=== PATIENT | female | born 1945 | race Caucasian/White ===

== ENCOUNTER 2024-07-13 07:50 | Inpatient (IN) | payer OTHER, BC ==
--- OUTSIDE RECORDS SUMMARY | 2024-07-13 09:19 | XMS REPORT | Continuity of Care Document ---
Author Name Unknown Address [address] [facility] [address] [place] [address] [facility] Address [address] [facility] [place] [address] Care Team Providers Care [employer] Name Role Phone Sheng Olivares Primary Care Physician [phone] Sheng Olivares Attending Clinician Unavailable [id number] Attending Clinician Unavailable LEELEE ZAMORA Attending Clinician Unavailable Leelee Zamora MD Attending Clinician [phone] Leelee Zamora MD Attending Clinician [phone] BARBY BOBO K.HSukhdev Attending Clinician Unavailstevie Bobo MD, Sendmyles K.H. Attending Clinician [phone] KAYLEEN TONEY Attending Clinician UnaKAYLEEN Mirza Attending Clinician UnaGallo Conteh MD Attending Clinician [phone] Doctor Unassigned, [place] Attending Clinician U MILLER Perez Attending Clinician Unavailable Sven JIMÉNEZ, Miller Attending Clinician [phone] Visit, Adc Nurse Attending Clinician Unavailable JEFF LOW Attending Clinician Unavailable Jeff Low PA-C Attending Clinician [phone] Jack Gunn Rahil Attending Clinician Unavail able JOAO LENTZ Attending Clinician UnavailJoao Partida MD Attending Clinician [phone] Farhana Salazar DO Attending Clinician [phone] Jennifer Johnson RN Attending Clinician Unavailable NAVA GRAY Attending Clinician Unavailable Michael Kay MD Attending Clinician [phone] Nava Gray MD Attending Clinician [phone] Admitting Clinician Unavailable KAYLEEN TONEY Admitting Clinician Unav ailable MILLER MACHUCA Admitting Clinician Unavailable Jack Gunn Rahil Admitting Clinician Unavail able JOAO LENTZ Admitting Clinician UnavailNAVA Black Admitting Clinician Unavailable Marcella JIMÉNEZ, Nava Admitting Clinician [phone] Payers Payer Name Policy Type Policy Number Effective Date Expiration Date Source MEDICARE PART A \\T\\ B [id number] 2008 00:00:00 [employer] TRADITIONAL [id number] 2008 00:00:00 BCBS PPO 53 [id number] [facility] [id number] BCTI BCTI [id number] 2 Problems Condition Name Condition Details Condition Category Status Onset Date Resolution Date Last Treatment Date Treating Clinician Comments Source History of arterial ischemic stroke History of arterial ischemic stroke Disease Active 12-02 00:00: 00 [facility] Primary hypertensi on Primary hypertensi on Disease Active 12-02 00:00: 00 [facility] PAF (paroxysma l atrial fibrillati on) PAF (paroxysma l atrial fibrillati on) Disease Active 12-02 00:00: 00 [facility] Anticoagul ant long-term use Anticoagul ant long-term use Disease Active 12-02 00:00: 00 [facility] Weakness of both lower extremitie s Weakness of both lower extremitie s Disease Active 11-15 00:00: 00 [facility] Weakness of both lower extremitie s Weakness of both lower extremitie s Disease Active 11-15 00:00: 00 [facility] Allergies, Adverse Reactions, Alerts Allergy Name Allergy Type Status Severity Reaction(s) Onset Date Inactive Date Treating Clinician Comments Source NO KNOWN ALLERGIE S Drug Class Active [facility] Social History Social Habit Start Date Stop Date Quantity Comments Source [facility] of Tobacco Use [facility] Sex Assigned At [facility] History of Social function 2024-05-24 00:00:00 2024-05-24 00:00:00 [facility] Exposure to SARS-CoV-2 (event) 2023-01-04 00:00:00 2023-01-14 11:19:00 Not sure [facility] Smoking Status Start Date Stop Date Source Never Smoker [facility] Tobacco smoking consumption unknown [facility] Medications Ordered Medication Name Filled Medication Name Start Date Stop Date Current Medication? Ordering Clinician Indication Dosage Frequency Signature (SIG) Comments Components Source warfarin 2 mg tablet 04-02 00:00: 00 Yes [id number] Take 1 tablet by mouth in the evening on Tuesday and [facility] warfarin 4 mg tablet 04-02 00:00: 00 Yes [id number] Take 1 tablet by mouth in the evening on Tuesday, Tuesday, Tuesday, Tuesday, and Tuesday [facility] warfarin 2 mg tablet 15 00:00: 00 04-02 00:00 :00 No [id number] Take 1 tablet by mouth in the evening on Tuesday and [facility] warfarin 4 mg tablet 02-22 00:00: 00 04-02 00:00 :00 No [id number] Take 1 tablet by mouth in the evening on Tuesday, Tuesday, Tuesday, Tuesday, and Tuesday [facility] warfarin 2 mg tablet 2022-09 0 00:00: 00 02-22 00:00 :00 No 2mg Take 1 tablet by mouth every Tuesday in the evening. [facility] warfarin 2 mg tablet 2022-1 0-02 00:00: 00 06-29 00:00 :00 No 2mg Take 1 tablet by mouth every Tuesday in the evening. [facility] warfarin 2 mg tablet 2022-0 8-26 00:00: 00 06-13 00:00 :00 No 2mg Take 1 tablet by mouth every Tuesday in the evening. [facility] warfarin 4 mg tablet 2022-0 5-11 00:00: 00 02-22 00:00 :00 No [id number] Take 4 mg x 6 days a week [facility] warfarin 5 mg tablet 2022-0 5-11 00:00: 00 05-02 00:00 :00 No [id number] Take 5 mg 1 day per week [facility] warfarin 5 mg tablet 2022-0 4-24 00:00: 00 01-20 00:00 :00 No [id number] 5mg Take 1 tablet by mouth every evening. Take 5 mg on 2 days of the week and 4 mg on the other 5 days [facility] warfarin 5 mg tablet 2022-0 4-14 00:00: 00 Yes [id number] 5mg Take 1 tablet by mouth every evening. 5 mg 3 days per week. 4 mg on 4 days per week [facility] warfarin 4 mg tablet 2022-0 4-14 00:00: 00 01-20 00:00 :00 No [id number] 4mg Take 1 tablet by mouth every evening. [facility] warfarin 5 mg tablet 3-0 3-14 00:00: 00 Yes [id number] 5mg Take 1 tablet by mouth every evening. 5 mg 3 days per week. 4 mg on 4 days per week [facility] warfarin 4 mg tablet 3-0 3-14 00:00: 00 Yes [id number] 4mg Take 1 tablet by mouth every evening. 4 mg on 4 days and 5 mg on 3 days per week [facility] warfarin 4 mg tablet 3-0 3-02 00:00: 00 11-23 00:00 :00 No [id number] 4mg Take 1 tablet by mouth every evening. [facility] warfarin 3 mg tablet 2- 00:00: 00 11-11 00:00 :00 No [id number] 3mg Take 1 tablet by mouth every evening. [facility] warfarin 1 mg tablet - 00:00: 00 11-02 00:00 :00 No [id number] 1mg Take 1 tablet by mouth every evening. [facility] warfarin 5 mg tablet 2021-09 00:00: 00 09-30 00:00 :00 No [id number] 5mg Take 1 tablet by mouth every evening. [facility] apixaban (ELIQUIS) 5 mg tablet 2021-09 00:00: 00 09-02 00:00 :00 No [id number] 5mg Take 1 tablet by mouth in the morning and 1 tablet in the evening. Indication s: prevention of thromboemb olism in paroxysmal atrial fibrillati on [facility] apixaban 5 mg tablet 2021-09 00:00: 00 08-19 00:00 :00 No [id number] 5mg Take 1 tablet by mouth in the morning and 1 tablet in the evening. Indication s: atrial fibrillati on [facility] apixaban 5 mg tablet 2021-09 00:00: 00 08-11 00:00 :00 No [id number] 5mg Take 1 tablet by mouth in the morning and 1 tablet in the evening. Indication s: atrial fibrillati on [facility] iopamidol (ISOVUE 370-500 mL) injection 100 mL 10-04 20:45: 00 10-04 19:20 :00 No [id number] 100mL 100 mL, Intravenou s, ONCE, 1 dose, On 10/04/21 at 1445, Routine [facility] proMETHazin e (PHENERGAN) 12.5 mg in NaCl 0.9% (NS) 50 mL IV piggyback 10-04 19:00: 00 10-04 19:00 :00 No 12.5mg 12.5 mg, IV Piggyback, ONCE, 1 dose, On 10/04/21 at 1300, [facility] meclizine (TRAVEL-EAS E (MECLIZINE) ) tablet 25 mg 10-04 19:00: 00 10-04 18:13 :00 No 25mg 25 mg, Oral, ONCE, 1 dose, On 10/04/21 at 1300, [facility] NaCl 0.9% (NS) bolus infusion 1,000 mL 10-04 19:00: 00 10-04 20:12 :00 No 1000mL at 999 mL/hr, 1,000 mL, IV Infusion, ONCE, 1 dose, On 10/04/21 at 1300, [facility] benzonatate 100 mg capsule 10-04 00:00: 00 Yes [id number] 100mg Take 1 capsule by mouth 3 (three) times daily as needed for Cough. [facility] meclizine 25 mg tablet 10-04 00:00: 00 Yes [id number] 25mg Take 1 tablet by mouth every 8 (eight) hours as needed for Dizziness. [facility] proMETHazin e 25 mg tablet 10-04 00:00: 00 Yes [id number] 25mg Take 1 tablet by mouth every 6 (six) hours as needed (dizziness and/or nausea). [facility] albuterol 90 mcg/actuati on inhaler 10-04 00:00: 00 Yes [id number] 2{puff} Inhale 2 Puffs every 4 (four) hours as needed for Wheezing or Shortness of Breath. [facility] tetanus-dip htheria toxoids (TENIVAC) 5-2 Lf unit/0.5 mL injection 0.5 mL 12-20 15:30: 00 12-20 16:05 :00 No .5mL 0.5 mL, Intramuscu lar, ONCE, 1 dose, 12/20/20 at 1030, Routine [facility] pramipexole di-HCl (MIRAPEX ORAL) 11-19 01:09: 27 Yes 1.5mg Take 1.5 mg by mouth. reports he gives 1/2 in the am and 1/2 pm. [facility] PARoxetine 10 mg tablet 11-19 01:09: 27 Yes 10mg Take 10 mg by mouth daily. [facility] atorvastati n 80 mg tablet 11-19 01:09: 27 Yes 80mg Take 80 mg by mouth at bedtime. [facility] pramipexole di-HCl (MIRAPEX ORAL) 11-18 19:09: 27 Yes 1.5mg Take 1.5 mg by mouth. reports he gives 1/2 in the am and 1/2 pm. [facility] PARoxetine 10 mg tablet 11-18 19:09: 27 Yes 10mg Take 1 tablet by mouth in the morning. [facility] atorvastati n 80 mg tablet 11-18 19:09: 27 Yes 80mg Take 1 tablet by mouth at bedtime. [facility] KCL (KLOR-CON M20) tablet 40 mEq 11-18 14:42: 00 11-18 14:59 :00 No 40meq 40 mEq, Oral, ONCE, 1 dose, 11/18/20 at 0845, Routine [facility] magnesium sulfate in water 2 gram/50 mL (4 %) infusion 2 g 11-18 14:42: 00 11-18 16:50 :00 No 2g 2 g, IV Piggyback, ONCE, 1 dose, 11/18/20 at 0845, RICKY [facility] clopidogreL (PLAVIX) 75 mg tablet 11-18 13:46: 27 11-18 00:00 :00 No 75mg Take 75 mg by mouth daily. [facility] doxycycline hyclate (Vibramycin ) capsule 100 mg 11-18 12:00: 00 2021- 03-13 11:59 :00 No 100mg 100 mg, Oral, Q12HA2, 8 doses, First dose on Tue11/18/20 at 0600, Last dose on Tue11/21/20 at 1800, RICKY
Re ason for Anti-Infec tive: Surgical Prophylaxi s
Surgi giuliana Prophylaxi s: Other (see Comments)< br>Duratio n of therapy: within 24 hours of surgery [facility] atorvastati n (LIPITOR) tablet 80 mg 11-18 03:00: 00 Yes 80mg 80 mg, Oral, QHS, First dose (after last reorder) on Tue11/17/20 at 2100, Until Discontinu ed, Routine [facility] lidocaine 1% (PF) (XYLOCAINE) injection 11-18 00:00: 03 11-18 00:00 :03 No Infiltrati on, TITRATE - FOR PROCEDURE USE, 1 dose, Starting Tue11/17/20 at 1800, Until Tue11/17/20 at 1800, Routine [facility] aspirin 81 mg chewable tablet 11-18 00:00: 00 12-02 00:00 :00 No [id number] 81mg Take 1 tablet by mouth daily. [facility] clopidogreL (PLAVIX) 75 mg tablet 11-18 00:00: 00 12-10 04:59 :00 No [id number] 75mg Take 1 tablet by mouth daily for 21 days. [facility] doxycycline hyclate 100 mg capsule 11-18 00:00: 00 11-23 05:59 :00 No [id number] 100mg Take 1 capsule by mouth every 12 (twelve) hours for 4 days. [facility] vancomycin 1000 mg in NS 200 mL RTU IV Piggyback 11-17 23:59: 45 11-17 23:59 :45 No IV Piggyback, TITRATE - FOR PROCEDURE USE, 1 dose, Starting Tue11/17/20 at 1759, Until Tue11/17/20 at 1759 [facility] Saline Bubble Study 11-17 23:21: 41 Yes [id number] 6mL 6 mL, Injection, SEE-INSTRU CTIONS, Starting 11/17/20 at 1721, Until Discontinu ed, Routine [facility] clopidogreL (PLAVIX) tablet 75 mg 11-17 15:00: 00 Yes 75mg 75 mg, Oral, DAILY, First dose on 11/17/20 at 0900, Until Discontinu ed, Routine [facility] KCL (KLOR-CON M20) tablet 40 mEq 11-17 13:06: 00 11-17 14:58 :00 No 40meq 40 mEq, Oral, ONCE, 1 dose, 11/17/20 at 0715, Routine [facility] atorvastati n (LIPITOR) tablet 20 mg 11-17 03:00: 00 11-17 19:03 :08 No 20mg 20 mg, Oral, QHS, First dose (after last modificati on) on 11/16/20 at 2100, Until Discontinu ed, Routine [facility] NaCl 0.9% (NS) IV infusion 1,000 mL 11-16 15:00: 00 Yes 1000mL at 100 mL/hr, IV Infusion, CONTINUOUS , Starting Voss 11/16/20 at 0900, Until Discontinu ed, Routine [facility] aspirin chewable tablet 81 mg 11-16 15:00: 00 Yes 81mg 81 mg, Oral, DAILY, First dose on Tue11/16/20 at 0900, Until Discontinu ed, Routine [facility] PARoxetine (PAXIL) tablet 10 mg 11-16 15:00: 00 Yes 10mg 10 mg, Oral, DAILY, First dose on 11/16/20 at 0900, Until Discontinu ed, Routine [facility] iohexol (OMNIPAQUE 350 BULK-100 mL) injection 100 mL 11-16 03:45: 00 11-16 03:40 :00 No [id number] 100mL 100 mL, Intravenou s, ONCE, 1 dose, 11/15/20 at 2145, Routine [facility] atorvastati n (LIPITOR) tablet 80 mg 11-16 03:00: 00 11-16 10:50 :05 No 80mg 80 mg, Oral, QHS, First dose on 11/15/20 at 2100, Until Discontinu ed, Routine [facility] acetaminoph en (TYLENOL) tablet 325 mg 11-16 02:12: 14 Yes 325mg 325 mg, Oral, Q6HPRN, Starting 11/15/20 at 2011, Until Discontinu ed, Routine, Pain (scale 4-6) [facility] meclizine (ANTIVERT) tablet 12.5 mg 11-16 02:11: 59 Yes 12.5mg 12.5 mg, Oral, TIDPRN, Starting 11/15/20 at 2010, Until Discontinu ed, Routine, Dizziness [facility] pramipexole (MIRAPEX) tablet 0.75 mg 11-16 02:00: 00 Yes .75mg 0.75 mg, Oral, BID, First dose on 11/15/20 at 1999, Until Discontinu ed, Routine
member service specialist approving Restricted medication : NAVA GRAY [facility] heparin (porcine) injection 5,000 Units 11-16 02:00: 00 11-18 14:11 :30 No 5000U 5,000 Units, Subcutaneo us, Q12H, First dose on 11/15/20 at 1999, Until Discontinu ed, Routine [facility] ondansetron (ZOFRAN (PF)) injection 4 mg 11-15 21:30: 00 11-15 20:38 :00 No 4mg 4 mg, Slow IV Push, ONCE, 1 dose, 11/15/20 at 1530, RICKY [facility] aspirin tablet 325 mg 11-15 21:30: 00 11-15 20:38 :00 No 325mg 325 mg, Oral, ONCE, 1 dose, 11/15/20 at 1530, STAT [facility] No Known Medications No Known Medications No [facility] Immunizations Ordered Immunization Name Filled Immunization Name Date Status Comments Source TD, NOS 2020-12-20 00:00:00 Completed [facility] TD, NOS 2020-12-20 00:00:00 Completed [facility] TD, NOS 2020-12-20 00:00:00 Completed [facility] TD, NOS 2020-12-20 00:00:00 Completed [facility] TD, NOS 2020-12-20 00:00:00 Completed [facility] TD, NOS 2020-12-20 00:00:00 Completed [facility] TD, NOS 2020-12-20 00:00:00 Completed [facility] TD, NOS 2020-12-20 00:00:00 Completed [facility] TD, NOS 2020-12-20 00:00:00 Completed [facility] TD, NOS 2020-12-20 00:00:00 Completed [facility] TD, NOS 2020-12-20 00:00:00 Completed [facility] TD, NOS 2020-12-20 00:00:00 Completed [facility] TD, NOS 2020-12-20 00:00:00 Completed [facility] TD, NOS 2020-12-20 00:00:00 Completed [facility] TD, NOS 2020-12-20 00:00:00 Completed [facility] TD, NOS 2020-12-20 00:00:00 Completed [facility] TD, NOS 2020-12-20 00:00:00 Completed [facility] TD, NOS 2020-12-20 00:00:00 Completed [facility] TD, NOS 2020-12-20 00:00:00 Completed [facility] TD, NOS 2020-12-20 00:00:00 Completed [facility] TD, NOS 2020-12-20 00:00:00 Completed [facility] TD, NOS 2020-12-20 00:00:00 Completed [facility] TD, NOS 2020-12-20 00:00:00 Completed [facility] TD, NOS 2020-12-20 00:00:00 Completed [facility] TD, NOS 2020-12-20 00:00:00 Completed [facility] TD, NOS 2020-12-20 00:00:00 Completed [facility] TD, NOS 2020-12-20 00:00:00 Completed [facility] TD, NOS 2020-12-20 00:00:00 Completed [facility] TD, NOS 2020-12-20 00:00:00 Completed [facility] TD, NOS 2020-12-20 00:00:00 Completed [facility] TD, NOS 2020-12-20 00:00:00 Completed [facility] TD, NOS 2020-12-20 00:00:00 Completed [facility] TD, NOS 2020-12-20 00:00:00 Completed [facility] TD, NOS 2020-12-20 00:00:00 Completed [facility] Td 2020-12-20 00:00:00 Completed [facility] Td 2020-12-20 00:00:00 Completed [facility] Td 2020-12-20 00:00:00 Completed [facility] Td 2020-12-20 00:00:00 Completed [facility] Td 2020-12-20 00:00:00 Completed [facility] Td 2020-12-20 00:00:00 Completed [facility] Td 2020-12-20 00:00:00 Completed [facility] Td 2020-12-20 00:00:00 Completed [facility] Td 2020-12-20 00:00:00 Completed [facility] Td 2020-12-20 00:00:00 Completed [facility] Td 2020-12-20 00:00:00 Completed [facility] Td 2020-12-20 00:00:00 Completed [facility] TD, NOS 2020-12-20 00:00:00 Completed [facility] TD, NOS 2020-12-20 00:00:00 Completed [facility] TD, NOS 2020-12-20 00:00:00 Completed [facility] TD, NOS 2020-12-20 00:00:00 Completed [facility] TD, NOS 2020-12-20 00:00:00 Completed [facility] TD, NOS 2020-12-20 00:00:00 Completed [facility] TD, NOS 2020-12-20 00:00:00 Completed [facility] TD, NOS 2020-12-20 00:00:00 Completed [facility] TD, NOS 2020-12-20 00:00:00 Completed [facility] TD, NOS 2020-12-20 00:00:00 Completed [facility] TD, NOS 2020-12-20 00:00:00 Completed [facility] TD, NOS 2020-12-20 00:00:00 Completed [facility] TD, NOS 2020-12-20 00:00:00 Completed [facility] TD, NOS 2020-12-20 00:00:00 Completed [facility] Td 2020-12-20 00:00:00 Completed [facility] TD, NOS 2020-12-20 00:00:00 Completed [facility] TD, NOS 2020-12-20 00:00:00 Completed [facility] TD, NOS 2020-12-20 00:00:00 Completed [facility] TD, NOS 2020-12-20 00:00:00 Completed [facility] TD, NOS 2020-12-20 00:00:00 Completed [facility] TD, NOS 2020-12-20 00:00:00 Completed [facility] Td 2020-12-20 00:00:00 Completed [facility] TD, NOS 2020-12-20 00:00:00 Completed [facility] TD, NOS 2020-12-20 00:00:00 Completed [facility] TD, NOS 2020-12-20 00:00:00 Completed [facility] TD, NOS 2020-12-20 00:00:[address] [facility] Td 2020-12-20 00:00:00 Completed [facility] TD, NOS 2020-12-20 00:00:00 Completed [facility] TD, NOS 2020-12-20 00:00:00 Completed [facility] TD, NOS 2020-12-20 00:00:00 Completed [facility] TD, NOS 2020-12-20 00:00:00 Completed [facility] TD, NOS Unknown Completed [facility] TD, NOS Unknown Completed [facility] TD, NOS Unknown Completed [facility] TD, NOS Unknown Completed [facility] TD, NOS Unknown Completed [facility] TD, NOS Unknown Completed [facility] TD, NOS Unknown Completed [facility] TD, NOS Unknown Completed [facility] TD, NOS Unknown Completed [facility] TD, NOS Unknown Completed [facility] TD, NOS Unknown Completed [facility] TD, NOS Unknown Completed [facility] TD, NOS Unknown Completed [facility] TD, NOS Unknown Completed [facility] TD, NOS Unknown Completed [facility] TD, NOS Unknown Completed [facility] TD, NOS Unknown Completed [facility] TD, NOS Unknown Completed [facility] TD, NOS Unknown Completed [facility] TD, NOS Unknown Completed [facility] TD, NOS Unknown Completed [facility] TD, NOS Unknown Completed [facility] TD, NOS Unknown Completed [facility] TD, NOS Unknown Completed [facility] TD, NOS Unknown Completed [facility] TD, NOS Unknown Completed [facility] TD, NOS Unknown Completed [facility] TD, NOS Unknown Completed [facility] TD, NOS Unknown Completed [facility] TD, NOS Unknown Completed [facility] TD, NOS Unknown Completed [facility] TD, NOS Unknown Completed [facility] TD, NOS Unknown Completed [facility] TD, NOS Unknown Completed [facility] TD, NOS Unknown Completed [facility] TD, NOS Unknown Completed [facility] TD, NOS Unknown Completed [facility] TD, NOS Unknown Completed [facility] TD, NOS Unknown Completed [facility] TD, NOS Unknown Completed [facility] Vital Signs Vital Name Observation Time Observation Value Comments S ource Systolic blood pressure 2024-05-24 14:43:00 120 mm[Hg] [facility] Diastolic blood pressure 2024-05-24 14:43:00 59 mm[Hg] [facility] Heart rate 2024-05-24 14:43:00 72 /min [facility] [facility] Respiratory rate 2024-05-24 14:43:00 16 /min [facility] Body height 2024-05-24 14:43:00 160 cm [facility] Body weight 2024-05-24 14:43:00 66.679 kg [facility] BMI 2024-05-24 14:43:00 26.04 kg/m2 [facility] Oxygen saturation in Arterial blood by Pulse oximetry 2024-05-24 14:43:00 98 /min [facility] height 2024-05-10 10:00:00 62 [in_i] [facility] weight-kg 2024-05-10 10:00:00 63.5 kg [facility] bmi 2024-05-10 10:00:00 25.6 kg/m2 [facility] Systolic blood pressure 2024-03-07 15:29:00 118 mm[Hg] [facility] Diastolic blood pressure 2024-03-07 15:29:00 59 mm[Hg] [facility] Heart rate 2024-03-07 15:29:00 85 /min [facility] Body temperature 2024-03-07 15:29:00 37.22 Helen [facility] Respiratory rate 2024-03-07 15:29:00 18 /min [facility] Oxygen saturation in Arterial blood by Pulse oximetry 2024-03-07 15:29:00 94 /min [facility] Systolic blood pressure 2023-05-26 14:43:00 129 mm[Hg] [facility] Diastolic blood pressure 2023-05-26 14:43:00 63 mm[Hg] [facility] Heart rate 2023-05-26 14:43:00 79 /min [facility] Body temperature 2023-05-26 14:43:00 36.67 Helen [facility] Respiratory rate 2023-05-26 14:43:00 16 /min [facility] Body weight 2023-05-26 14:43:00 63.504 kg per pt/unable to weigh [facility] BMI 2023-05-26 14:43:00 25.61 kg/m2 [facility] Oxygen saturation in Arterial blood by Pulse oximetry 2023-05-26 14:43:00 93 /min [facility] Systolic blood pressure 2022-12-02 15:20:00 125 mm[Hg] [facility] Diastolic blood pressure 2022-12-02 15:20:00 59 mm[Hg] [facility] Heart rate 2022-12-02 15:20:00 82 /min [facility] Body temperature 2022-12-02 15:20:00 36.94 Helen [facility] Respiratory rate 2022-12-02 15:20:00 17 /min [facility] Body height 2022-12-02 15:20:00 157.5 cm per pt [facility] Body weight 2022-12-02 15:20:00 57.607 kg per pt [facility] BMI 2022-12-02 15:20:00 23.23 kg/m2 [facility] Oxygen saturation in Arterial blood by Pulse oximetry 2022-12-02 15:20:00 95 /min [facility] Systolic blood pressure 2022-09-02 16:19:00 120 mm[Hg] [facility] Diastolic blood pressure 2022-09-02 16:19:00 59 mm[Hg] [facility] Heart rate 2022-09-02 16:19:00 81 /min [facility] Body temperature 2022-09-02 16:19:00 36.89 Helen [facility] Respiratory rate 2022-09-02 16:19:00 16 /min [facility] Body weight 2022-09-02 16:19:00 57.607 kg per pt [facility] BMI 2022-09-02 16:19:00 23.23 kg/m2 [facility] Oxygen saturation in Arterial blood by Pulse oximetry 2022-09-02 16:19:00 93 /min [facility] Systolic blood pressure 2021-10-04 21:49:00 144 mm[Hg] [facility] Diastolic blood pressure 2021-10-04 21:49:00 73 mm[Hg] [facility] Heart rate 2021-10-04 21:49:00 76 /min [facility] Respiratory rate 2021-10-04 18:00:00 17 /min [facility] Oxygen saturation in Arterial blood by Pulse oximetry 2021-10-04 18:00:00 99 /min [facility] Body temperature 2021-10-04 17:29:07 37.67 Helen [facility] Body weight 2021-10-04 17:18:00 58.968 kg [facility] BMI 2021-10-04 17:18:00 23.78 kg/m2 [facility] Systolic blood pressure 2020-12-20 20:00:00 145 mm[Hg] [facility] Diastolic blood pressure 2020-12-20 20:00:00 61 mm[Hg] [facility] Heart rate 2020-12-20 20:00:00 84 /min [facility] Respiratory rate 2020-12-20 20:00:00 19 /min [facility] Oxygen saturation in Arterial blood by Pulse oximetry 2020-12-20 20:00:00 98 /min [facility] Body temperature 2020-12-20 14:24:00 36.22 Helen [facility] Body weight 2020-12-20 14:24:00 62.596 kg [facility] BMI 2020-12-20 14:24:00 25.24 kg/m2 [facility] Systolic blood pressure 2020-11-18 20:57:00 144 mm[Hg] [facility] Diastolic blood pressure 2020-11-18 20:57:00 69 mm[Hg] [facility] Heart rate 2020-11-18 20:57:00 87 /min [facility] Body temperature 2020-11-18 20:57:00 36.44 Helen [facility] Respiratory rate 2020-11-18 20:57:00 16 /min [facility] Oxygen saturation in Arterial blood by Pulse oximetry 2020-11-18 20:57:00 100 /min [facility] Body height 2020-11-15 23:59:00 157.5 cm [facility] Body weight 2020-11-15 23:59:00 63 kg [facility] BMI 2020-11-15 23:59:00 25.40 kg/m2 [facility] Procedures Procedure Date / Time Performed Performing Clinician Source MEDICATION CORRESPONDENCE 2023-07-29 06:01:00 Do ctor Unassigned, [place] [facility] PHYSICIAN ORDERS 2023-07-11 05:01:00 Doctor Naveed signed, [place] [facility] SCANNED LAB RESULTS 2023-06-28 05:01:00 Doctor Neo mcdonald, [place] [facility] PHYSICIAN ORDERS 2023-05-27 05:01:00 Doctor Naveed signed, [place] [facility] AUTHORIZATION FOR RELEASE OF PHI 2023-04-27 05:01:00 Doctor Unassigned, [place] [facility] EXTERNAL PROVIDER - ADC CARDIOLOGY 2023-04-14 05:01:00 Doctor Unassigned, [place] [facility] MEDICATION CORRESPONDENCE 2023-03-04 05:01:00 Do ctor Unassigned, [place] [facility] SCANNED LAB RESULTS 2023-02-01 05:01:00 Doctor Neo mcdonald, [place] [facility] SCANNED LAB RESULTS 2023-01-20 05:01:00 Doctor Neo mcdonald, [place] [facility] MEDICATION CORRESPONDENCE 2023-01-14 05:01:00 Do ctor Unassigned, [place] [facility] HOME HEALTH - OTHER 2022-12-24 05:01:00 Doctor Neo mcdonald, [place] [facility] PHYSICIAN ORDERS 2022-12-13 05:01:00 Doctor Naveed signed, [place] [facility] MEDICATION CORRESPONDENCE 2022-11-23 05:01:00 Do ctor Unassigned, [place] [facility] MEDICATION CORRESPONDENCE 2022-11-11 06:01:00 Do ctor Unassigned, [place] [facility] MEDICATION CORRESPONDENCE 2022-11-02 06:01:00 Do ctor Unassigned, [place] [facility] AUTHORIZATION FOR RELEASE OF PHI 2022-10-25 06:01:00 Doctor Unassigned, [place] [facility] MEDICATION CORRESPONDENCE 2022-09-30 06:01:00 Do ctor Unassigned, [place] [facility] HOME HEALTH - OTHER 2022-09-21 06:01:00 Doctor Neo mcdonald, [place] [facility] PHYSICIAN ORDERS 2022-09-10 06:01:00 Doctor Naveed signed, [place] [facility] ASSIGNMENT OF BENEFITS 2022-08-19 14:59:37 Docto r Unassigned, [place] [facility] SCANNED LAB RESULTS 2022-07-13 05:01:00 Doctor Neo mcdonald, [place] [facility] CARDIAC DEVICE CHECK - REMOTE - LOOP RECORDER (ILR) 2022-05-10 18:17:00 Miller Machuca [facility] XR HIPS 2 VW LEFT 2021-10-04 21:19:07 Joao Lentz [facility] CT CERVICAL SPINE WO CONTRAST 2021-10-04 21:18:47 Joao Lentz [facility] CT HEAD WO CONTRAST 2021-10-04 21:18:47 Joao Lentz [facility] CT STROKE ANGIOGRAM HEAD 2021-10-04 19:33:50 Angy Lentz [facility] CT STROKE ANGIOGRAM NECK 2021-10-04 19:33:50 Angy Lentz [facility] CT STROKE HEAD WO CONTRAST 2021-10-04 19:33:32 Joao Lentz [facility] TROPONIN I 2021-10-04 17:59:00 Joao Lentz [facility] BASIC METABOLIC PANEL (NA, K, CL, CO2, GLUCOSE, BUN, CREATININE, CA) 2021-10-04 17:59:00 Joao Lentz [facility] CBC WITHOUT DIFF 2021-10-04 17:59:00 Joao Lentz [facility] PROTHROMBIN TIME / INR 2021-10-04 17:59:00 Jules Lentz [facility] ACTIVATED PARTIAL THRMPLAS AJAY 2021-10-04 17:59:00 Joao Lentz [facility] COVID-19 (ID NOW RAPID TESTING) 2021-10-04 17:59:00 Joao Lentz [facility] CT CERVICAL SPINE WO CONTRAST 2020-12-20 15:10:22 Farhana Salazar [facility] CT HEAD WO CONTRAST 2020-12-20 15:10:22 Margie Salazar ra [facility] XR HAND 3+ VW LEFT 2020-12-20 14:45:02 Saeed Salazar [facility] DNR 2020-11-25 05:01:00 Doctor Alli rasheed, [place] [facility] MAGNESIUM 2020-11-18 11:31:00 Mag Paulson [facility] BASIC METABOLIC PANEL (NA, K, CL, CO2, GLUCOSE, BUN, CREATININE, CA) 2020-11-18 11:31:00 Fay Stephenson [facility] ECHO ROUTINE W/DOPPLER COLOR 2020-11-17 20:00:38 [facility] CREATINE KINASE 2020-11-17 10:26:00 Terrance Stephenson [facility] BASIC METABOLIC PANEL (NA, K, CL, CO2, GLUCOSE, BUN, CREATININE, CA) 2020-11-17 10:26:00 [facility] XR CHEST 1 VW 2020-11-16 16:18:00 Musa Torres [facility] BASIC METABOLIC PANEL (NA, K, CL, CO2, GLUCOSE, BUN, CREATININE, CA) 2020-11-16 09:48:00 Ha [facility] LIPID PANEL (95913)(TOTAL CHOLESTEROL, TRIGLYCERIDES, HDL) 2020-11-16 09:48:00 Ha [facility] MR STROKE BRAIN WO CONTRAST 2020-11-16 08:12:53 Ha [facility] GLYCOSYLATED HEMOGLOBIN (A1C) 2020-11-16 05:06:00 Ha [facility] CREATINE KINASE 2020-11-16 05:05:00 Ha [facility] TROPONIN I 2020-11-16 05:05:00 Amanda Bonner [facility] VERIFYNOW PRUTEST (P2Y12) 2020-11-16 05:05:00 Ha [facility] CT ANGIOGRAM HEAD 2020-11-16 03:50:00 Meryl Bonner i [facility] CT ANGIOGRAM NECK 2020-11-16 03:50:00 Meryl Bonner i [facility] URINALYSIS 2020-11-15 20:42:00 [facility] HEAD WO CONTRAST 2020-11-15 19:23:05 Cristy Kay [facility] LAB ONLY COVID INTERPRETATION 2020-11-15 19:06:00 Michael Kay [facility] CREATINE KINASE 2020-11-15 19:06:00 [facility] 2020-11-15 19:06:00 Michael Kay [facility] TROPONIN I 2020-11-15 19:06:00 [facility] FREE T4 2020-11-15 19:06:00 [facility] THYROID STIMULATING HORMONE 2020-11-15 19:06:00 Michael Kay [facility] HEPATIC FUNCTION PANEL (86051) (ALB,T.PRO,BILI T,BU/BC,ALT,AST,ALK PHOS) 2020-11-15 19:06:00 Michael Kay [facility] BASIC METABOLIC PANEL (NA, K, CL, CO2, GLUCOSE, BUN, CREATININE, CA) 2020-11-15 19:06:00 Michael Kay [facility] CBC WITH DIFF 2020-11-15 19:06:00 Michael Kay [facility] PROTHROMBIN TIME / INR 2020-11-15 19:06:00 Luis Kay [facility] ACTIVATED PARTIAL THRMPLAS AJAY 2020-11-15 19:06:00 Michael Kay [facility] N-TERMINAL PRO-BNP 2020-11-15 19:06:00 Michael Kay [facility] COVID-19 (ID NOW RAPID TESTING) 2020-11-15 19:06:00 Michael Kay [facility] HB ECG ROUTINE & RHYTHM STRIP 2020-11-15 19:04:03 Michael Kay [facility] EMERGENCY SERVICES AGREEMENTS AND AUTHORIZATIONS 2020-11-15 06:01:00 Doctor Unassigned, [place] [facility] HOSPITAL ADMISSION 2020-11-15 06:01:00 Doctor Un assigned, [place] [facility] Encounters Start Date/Time End Date/Time Encounter Type Admission Type Attending [facility] Facility Care Department Encounter ID Source 2024-02-09 10:09:01 Outpatient hSeng Olivares [facility] [id number] [place] [facility] 2022-03-30 11:54:59 Outpatient 3 [id number] [facility] CVA [id number] [facility] 2022-03-29 13:26:17 Outpatient 3 [id number] [facility] REF [id number] [facility] 2021-10-08 11:55:32 Outpatient 3 [id number] [facility] REF [id number] [facility] 2021-07-12 12:01:12 Emergency [facility] [id number] [facility] 2024-05-24 09:40:00 2024-05-24 09:59:37 [id number] 2024-05-24 09:40:00 2024-05-24 09:59:37 Office Visit Markel [facility] 1.2.840.114 350.1.13.10 4.2.7.2.686 [id number] [facility] 2024-05-15 00:00:00 2024-05-15 10:51:21 Telephone Markel [facility] 1.2.840.114 350.1.13.10 4.2.7.2.686 [id number] [facility] 2024-05-14 00:00:00 2024-05-15 09:52:28 Telephone Markel [facility] 1.2.840.114 350.1.13.10 4.2.7.2.686 [id number] [facility] 2024-05-15 09:00:00 2024-05-15 09:10:00 [facility] 1.2.840.114 350.1.13.10 4.2.7.2.686 [id number] [facility] 2024-05-15 09:00:00 2024-05-15 09:00:00 [facility] [id number] [facility] 2024-05-10 00:00:00 2024-05-10 00:00:00 (F/U) Follow Up Visit CLS CLS [id number] [place] [facility] 2024-04-18 00:00:00 2024-04-19 12:36:08 Telephone Markel [facility] 1.2.840.114 350.1.13.10 4.2.7.2.686 [id number] [facility] 2024-04-18 13:50:00 2024-04-18 16:55:38 [facility] [id number] [facility] 2024-04-18 13:50:00 2024-04-18 16:55:38 Office Visit Markel [facility] 1.2.840.114 350.1.13.10 4.2.7.2.686 [id number] [facility] 2024-03-29 00:00:00 2024-04-04 09:56:03 [facility] 1.2.840.114 350.1.13.10 4.2.7.2.686 [id number] [facility] 2024-04-02 00:00:00 2024-04-02 11:47:03 Tele[facility] 1.2.840.114 350.1.13.10 4.2.7.2.686 [id number] [facility] 2024-03-30 00:00:00 2024-04-02 09:33:08 [facility] 1.2.840.114 350.1.13.10 4.2.7.2.686 [id number] [facility] 2024-03-30 00:00:00 2024-04-02 09:32:24 Tele[facility] 1.2.840.114 350.1.13.10 4.2.7.2.686 [id number] [facility] 2024-03-30 10:20:00 2024-03-30 16:35:52 Outpatient R BARBY BOBO [facility] [id number] [facility] 2024-03-30 10:20:00 2024-03-30 16:35:52 Office Visit Barby Bobo [facility] 1.2.840.114 350.1.13.10 4.2.7.2.686 [id number] [facility] 2024-03-07 10:30:00 2024-03-07 10:56:24 Outpatient R RU TONEY CHOCKALINGA M [facility] [id number] [facility] 2024-03-07 10:30:00 2024-03-07 10:56:24 Office Visit Gallo Landon Chockalinga m [facility] 1.2.840.114 350.1.13.10 4.2.7.2.686 [id number] [facility] 2024-03-05 00:00:00 2024-03-05 16:47:20 Tele[facility] 1.2.840.114 350.1.13.10 4.2.7.2.686 [id number] [id number] [facility] 2024-03-05 11:20:00 2024-03-05 11:30:00 [facility] 1.2.840.114 350.1.13.10 4.2.7.2.686 [id number] [facility] 2024-03-05 11:20:00 2024-03-05 11:20:00 [facility] [id number] [facility] 2024-02-27 00:00:00 2024-02-27 16:56:20 Telephone Markel [facility] 1.2.840.114 350.1.13.10 4.2.7.2.686 [id number] [facility] 2024-02-23 08:07:19 2024-02-23 23:59:00 Outpatient R RU TONEY CHOCKALINGA M [facility] [id number] [facility] 2024-02-23 08:07:19 2024-02-23 23:59:00 Hospital Encounter Ru Toney [facility] 1.2.840.114 350.1.13.10 4.2.7.2.686 [id number] [facility] 2024-02-23 00:00:00 2024-02-23 11:29:39 Telephone [facility] 1.2.840.114 350.1.13.10 4.2.7.2.686 [id number] [facility] 2024-02-23 10:40:00 2024-02-23 10:50:00 Office Visit Leelee Zamora [facility] 1.2.840.114 350.1.13.10 4.2.7.2.686 [id number] [facility] 2024-02-20 00:00:00 2024-02-21 11:15:06 Telephone Leelee Zamora [facility] 1.2.840.114 350.1.13.10 4.2.7.2.686 [id number] [facility] 2024-02-09 00:00:00 2024-02-09 00:00:00 Office Visit- New Pt.- Level 3 CLS CLS [id number] [place] [facility] 2023-08-29 00:00:00 2023-08-29 00:00:00 Telephone Ru Toney [facility] 1.2.840.114 350.1.13.10 4.2.7.2.686 [id number] [facility] 2023-08-18 07:59:47 2023-08-18 23:59:00 Outpatient R RU TONEY CHOCKALINGA M [facility] [id number] [facility] 2023-08-18 07:59:47 2023-08-18 23:59:00 Hospital Encounter Ru Toney [facility] 1.2.840.114 350.1.13.10 4.2.7.2.686 [id number] [facility] 2023-08-18 00:00:00 2023-08-18 00:00:00 Telephone Ru Toney [facility] 1.2.840.114 350.1.13.10 4.2.7.2.686 [id number] [facility] 2023-08-11 00:00:00 2023-08-11 00:00:00 [facility] 1.2.840.114 350.1.13.10 4.2.7.2.686 [id number] [facility] 2023-07-29 14:00:00 2023-07-29 14:10:00 [facility] 1.2.840.114 350.1.13.10 4.2.7.2.686 [id number] [facility] 2023-07-29 14:00:00 2023-07-29 14:00:00 [facility] [id number] [facility] 2023-07-29 00:00:00 2023-07-29 00:00:00 Telephone Markel [facility] 1.2.840.114 350.1.13.10 4.2.7.2.686 [id number] [facility] 2023-07-29 00:00:00 2023-07-29 00:00:00 Orders Only Doctor Unassigned, [place] [facility] 1.2.840.114 350.1.13.10 4.2.7.2.686 [id number] [facility] 2023-07-11 09:20:00 2023-07-11 09:30:00 [facility] 1.2.840.114 350.1.13.10 4.2.7.2.686 [id number] [facility] 2023-07-11 09:20:00 2023-07-11 09:20:00 [facility] [id number] [facility] 2023-07-11 00:00:00 2023-07-11 00:00:00 Orders Only Doctor Unassigned, [place] [facility] 1.2840.114 350.1.13.10 4.2.7.2.686 [id number] [facility] 2023-07-08 00:00:00 2023-07-08 00:00:00 [facility] 1.284.114 350.1.13.10 4.2.7.2.686 [id number] [facility] 2023-07-04 00:00:00 2023-07-04 00:00:00 [facility] 1.284.114 350.1.13.10 4.2.7.2.686 [id number] [facility] 2023-06-30 08:30:00 2023-06-30 08:30:00 Outpatient R RU TONEY CHOCKALINGA M [facility] [id number] [facility] 2023-06-29 13:00:00 2023-06-29 13:10:00 [facility] 1.284.114 350.1.13.10 4.2.7.2.686 [id number] [facility] 2023-06-29 13:00:00 2023-06-29 13:00:00 [facility] [id number] [facility] 2023-06-29 00:00:00 2023-06-29 00:00:00 Telephone Markel [facility] 1.2840.114 350.1.13.10 4.2.7.2.686 [id number] [facility] 2023-06-29 00:00:00 2023-06-29 00:00:00 [facility] 1.2.840.114 350.1.13.10 4.2.7.2.686 [id number] [facility] 2023-06-28 00:00:00 2023-06-28 00:00:00 Orders Only Doctor Unassigned, [place] [facility] 1.2.840.114 350.1.13.10 4.2.7.2.686 [id number] [facility] 2023-06-21 00:00:00 2023-06-21 00:00:00 Telephone [facility] 1.2.840.114 350.1.13.10 4.2.7.2.686 [id number] [facility] 2023-06-13 00:00:00 2023-06-13 00:00:00 Telephone [facility] 1.2.840.114 350.1.13.10 4.2.7.2.686 [id number] [facility] [facility]13 00:00:00 2023-06-13 00:00:00 [facility] 1.2.840.114 350.1.13.10 4.2.7.2.686 [id number] 059 [id number] [facility] 2023-06-01 11:00:00 2023-06-01 11:34:25 [facility] [id number] [facility] 2023-06-01 11:00:00 2023-06-01 11:10:00 [facility] 1.2.840.114 350.1.13.10 4.2.7.2.686 [id number] 059 [id number] [facility] 2023-06-01 00:00:00 2023-06-01 00:00:00 [facility]phone [facility] 1.2.840.114 350.1.13.10 4.2.7.2.686 [id number] 059 [id number] [facility] 2023-05-27 00:00:00 2023-05-27 00:00:00 Orders Only Doctor Unassigned, [place] [facility] 1.2.840.114 350.1.13.10 4.2.7.2.686 [id number] [id number] [facility] 2023-05-26 10:20:00 2023-05-26 10:20:00 [facility] 1.2.840.114 350.1.13.10 4.2.7.2.686 [id number] 059 [id number] [facility] 2023-05-26 10:20:00 2023-05-26 10:13:16 [facility] [id number] 2023-05-26 00:00:00 2023-05-26 00:00:00 [facility] 1.2.840.114 350.1.13.10 4.2.7.2.686 [id number] 059 [id number] [facility] 2023-05-12 00:00:00 2023-05-12 00:00:00 Tele[facility] 1.2.840.114 350.1.13.10 4.2.7.2.686 [id number] 059 [id number] [facility] 2023-05-02 09:00:00 2023-05-02 09:10:00 [facility] 1.2.840.114 350.1.13.10 4.2.7.2.686 [id number] 059 [id number] [facility] 2023-05-02 09:00:00 2023-05-02 09:00:00 [facility] [id number] [facility] 2023-05-02 00:00:00 2023-05-02 00:00:00 [facility] 1.2.840.114 350.1.13.10 4.2.7.2.686 [id number] 059 [id number] [facility] 2023-04-28 00:00:00 2023-04-28 00:00:00 [facility] 1.2.840.114 350.1.13.10 4.2.7.2.686 [id number] 059 [id number] [facility] 2023-04-27 00:00:00 2023-04-27 00:00:00 Orders Only Doctor Unassigned, [place] [facility] 1.2.840.114 350.1.13.10 4.2.7.2.686 [id number] 009 [id number] [facility] 2023-04-26 00:00:00 2023-04-26 00:00:00 [facility] 1.2.840.114 350.1.13.10 4.2.7.2.686 [id number] 059 [id number] [facility] 2023-04-15 00:00:00 2023-04-15 00:00:00 [facility] 1.2.840.114 350.1.13.10 4.2.7.2.686 [id number] 059 [id number] [facility] 2023-04-14 00:00:00 2023-04-14 00:00:00 [facility] 1.2.840.114 350.1.13.10 4.2.7.2.686 [id number] 059 [id number] [facility] 2023-04-14 00:00:00 2023-04-14 00:00:00 Orders Only Doctor Unassigned, [place] [facility] 1.2.840.114 350.1.13.10 4.2.7.2.686 [id number] [id number] [facility] 2023-03-04 00:00:00 2023-03-04 00:00:00 Orders Only Doctor Unassigned, [place] [facility] 1.2.840.114 350.1.13.10 4.2.7.2.686 [id number] [id number] [facility] 2023-02-04 00:00:00 2023-02-04 00:00:00 Telephone [facility] 1.2.840.114 350.1.13.10 4.2.7.2.686 [id number] 059 [id number] [facility] 2023-02-03 11:30:00 2023-02-03 12:38:15 [facility] [id number] [facility] 2023-02-03 11:30:00 2023-02-03 12:38:15 [facility] 1.2.840.114 350.1.13.10 4.2.7.2.686 [id number] 059 [id number] [facility] 2023-02-01 00:00:00 2023-02-01 00:00:00 Orders Only Doctor Unassigned, [place] [facility] 1.2.840.114 350.1.13.10 4.2.7.2.686 [id number] [id number] [facility] 2023-01-21 00:00:00 2023-01-21 00:00:00 Tele[facility] 1.2.840.114 350.1.13.10 4.2.7.2.686 [id number] 059 [id number] [facility] 2023-01-20 09:10:00 2023-01-20 09:20:00 Office Visit Markel [facility] 1.2.840.114 350.1.13.10 4.2.7.2.686 [id number] 059 [id number] [facility] 2023-01-20 09:10:00 2023-01-20 09:10:00 Outpatient R MARKEL [facility] [id number] [facility] 2023-01-20 00:00:00 2023-01-20 00:00:00 Telephone Markel [facility] BUILDING 1.2.840.114 350.1.13.10 4.2.7.2.686 [id number] 059 [id number] [facility] 2023-01-20 00:00:00 2023-01-20 00:00:00 Orders Only Doctor Unassigned, [place] [facility] 1.2.840.114 350.1.13.10 4.2.7.2.686 [id number] 009 [id number] [facility] 2023-01-17 00:00:00 2023-01-17 00:00:00 Telephone Markel [facility] BUILDING 1.2.840.114 350.1.13.10 4.2.7.2.686 [id number] 059 [id number] [facility] 2023-01-14 10:10:00 2023-01-14 11:19:37 [facility] [id number] [facility] 2023-01-14 10:10:00 2023-01-14 11:19:37 [facility] 1.2.840.114 350.1.13.10 4.2.7.2.686 [id number] 059 [id number] [facility] 2023-01-14 00:00:00 2023-01-14 00:00:00 Tele[facility] 1.2.840.114 350.1.13.10 4.2.7.2.686 [id number] 059 [id number] [facility] 2023-01-14 00:00:00 2023-01-14 00:00:00 Telephone [facility] 1.2.840.114 350.1.13.10 4.2.7.2.686 [id number] 059 [id number] [facility] 2023-01-14 00:00:00 2023-01-14 00:00:00 Orders Only Doctor Unassigned, [place] [facility] 1.2.840.114 350.1.13.10 4.2.7.2.686 [id number] 009 [id number] [facility] 2023-01-03 00:00:00 2023-01-03 00:00:00 Tele[facility] 1.2.840.114 350.1.13.10 4.2.7.2.686 [id number] 059 [id number] [facility] 2023-01-03 00:00:00 2023-01-03 00:00:00 Tele[facility] 1.2.840.114 350.1.13.10 4.2.7.2.686 [id number] 059 [id number] [facility] 2022-12-31 00:00:00 2022-12-31 00:00:00 [facility] 1.2.840.114 350.1.13.10 4.2.7.2.686 [id number] 059 [id number] [facility] 2022-12-31 00:00:00 2022-12-31 00:00:00 [facility] 1.2.840.114 350.1.13.10 4.2.7.2.686 [id number] 059 [id number] [facility] 2022-12-30 15:50:00 2022-12-30 16:00:00 [facility] 1.2.840.114 350.1.13.10 4.2.7.2.686 [id number] 059 [id number] [facility] 2022-12-30 15:50:00 2022-12-30 15:50:00 [facility] [id number] [facility] 2022-12-24 00:00:00 2022-12-24 00:00:00 Telephone Markel [facility] BUILDING 1.2.840.114 350.1.13.10 4.2.7.2.686 [id number] 059 [id number] [facility] 2022-12-24 00:00:00 2022-12-24 00:00:00 Tele[facility] 1.2.840.114 350.1.13.10 4.2.7.2.686 [id number] 059 [id number] [facility] 2022-12-24 00:00:00 2022-12-24 00:00:00 Orders Only Doctor Unassigned, [place] [facility] 1.2840.114 350.1.13.10 4.2.7.2.686 [id number] [id number] [facility] 2022-12-24 00:00:00 2022-12-24 00:00:00 Tele[facility] 1.2840.114 350.1.13.10 4.2.7.2.686 [id number] 059 [id number] [facility] 2022-12-23 15:40:00 2022-12-23 15:50:00 Office Visit Markel [facility] 1.2840.114 350.1.13.10 4.2.7.2.686 [id number] 059 [id number] [facility] 2022-12-23 15:40:00 2022-12-23 15:40:00 Outpatient R MARKEL [facility] [id number] [facility] 2022-12-16 15:00:00 2022-12-16 16:28:16 [facility] [id number] [facility] 2022-12-16 15:00:00 2022-12-16 16:28:16 Office Visit Markel [facility] 1.2.840.114 350.1.13.10 4.2.7.2.686 [id number] 059 [id number] [facility] 2022-12-16 00:00:00 2022-12-16 00:00:00 [facility] 1.2.840.114 350.1.13.10 4.2.7.2.686 [id number] 059 [id number] [facility] 2022-12-13 00:00:00 2022-12-13 00:00:00 Orders Only Doctor Unassigned, [place] [facility] 1.2.840.114 350.1.13.10 4.2.7.2.686 [id number] [id number] [facility] 2022-12-13 00:00:00 2022-12-13 00:00:00 Tele[facility] 1.2.840.114 350.1.13.10 4.2.7.2.686 [id number] 059 [id number] [facility] 2022-12-02 10:20:00 2022-12-02 10:41:50 [facility] [id number] [facility] 2022-12-02 10:20:00 2022-12-02 10:41:50 [facility] 1.2.840.114 350.1.13.10 4.2.7.2.686 [id number] 059 [id number] [facility] 2022-11-24 00:00:00 2022-11-24 00:00:00 Tele[facility] 1.2.840.114 350.1.13.10 4.2.7.2.686 [id number] 059 [id number] [facility] 2022-11-23 13:00:00 2022-11-23 13:10:00 [facility] 1.2.840.114 350.1.13.10 4.2.7.2.686 [id number] 059 [id number] [facility] 2022-11-23 13:00:00 2022-11-23 13:00:00 [facility] [id number] [facility] 2022-11-23 00:00:00 2022-11-23 00:00:00 Telephone [facility] 1.2.840.114 350.1.13.10 4.2.7.2.686 [id number] 059 [id number] [facility] 2022-11-23 00:00:00 2022-11-23 00:00:00 Orders Only Doctor Unassigned, [place] [facility] 1.2.840.114 350.1.13.10 4.2.7.2.686 [id number] [id number] [facility] 2022-11-11 15:40:00 2022-11-11 15:50:00 Office Visit Markel [facility] 1.2.840.114 350.1.13.10 4.2.7.2.686 [id number] 059 [id number] [facility] 2022-11-11 15:40:00 2022-11-11 15:40:00 [facility] [id number] [facility] 2022-11-11 00:00:00 2022-11-11 00:00:00 Orders Only Doctor Unassigned, [place] [facility] 1.2.840.114 350.1.13.10 4.2.7.2.686 [id number] 009 [id number] [facility] 2022-11-10 00:00:00 2022-11-10 00:00:00 Tele[facility] 1.2.840.114 350.1.13.10 4.2.7.2.686 [id number] 059 [id number] [facility] 2022-11-02 00:00:00 2022-11-02 00:00:00 Orders Only Doctor Unassigned, [place] [facility] 1.2.840.114 350.1.13.10 4.2.7.2.686 [id number] 009 [id number] [facility] 2022-11-01 00:00:00 2022-11-01 00:00:00 Tele[facility] 1.2.840.114 350.1.13.10 4.2.7.2.686 [id number] 059 [id number] [facility] 2022-10-25 00:00:00 2022-10-25 00:00:00 Orders Only Doctor Unassigned, [place] [facility] 1.2.840.114 350.1.13.10 4.2.7.2.686 [id number] [id number] [facility] 2022-10-22 00:00:00 2022-10-22 00:00:00 Tele[facility] 1.2.840.114 350.1.13.10 4.2.7.2.686 [id number] 059 [id number] [facility] 2022-10-22 00:00:00 2022-10-22 00:00:00 Telephone [facility] 1.2.840.114 350.1.13.10 4.2.7.2.686 [id number] 059 [id number] [facility] 2022-09-30 00:00:00 2022-09-30 00:00:00 Telephone Markel [facility] 1.2.840.114 350.1.13.10 4.2.7.2.686 [id number] 059 [id number] [facility] 2022-09-30 00:00:00 2022-09-30 00:00:00 Orders Only Doctor Unassigned, [place] [facility] 1.2.840.114 350.1.13.10 4.2.7.2.686 [id number] 009 [id number] [facility] 2022-09-27 00:00:00 2022-09-27 00:00:00 Tele[facility] 1.2.840.114 350.1.13.10 4.2.7.2.686 [id number] 059 [id number] [facility] 2022-09-23 00:00:00 2022-09-23 00:00:00 Tele[facility] 1.2.840.114 350.1.13.10 4.2.7.2.686 [id number] 059 [id number] [facility] 2022-09-21 00:00:00 2022-09-21 00:00:00 Telephone Markel [facility] 1.2.840.114 350.1.13.10 4.2.7.2.686 [id number] 059 [id number] [facility] 2022-09-21 00:00:00 2022-09-21 00:00:00 Orders Only Doctor Unassigned, [place] [facility] 1.2.840.114 350.1.13.10 4.2.7.2.686 [id number] [id number] [facility] 2022-09-20 00:00:00 2022-09-20 23:59:00 Outpatient R MILLER MACHUCA [facility] [id number] [facility] 2022-09-20 00:00:00 2022-09-20 23:59:00 Hospital Encounter Miller Machuca [facility] 1.2.840.114 350.1.13.10 4.2.7.2.686 [id number] [facility] 2022-09-10 00:00:00 2022-09-10 00:00:00 Orders Only Doctor Unassigned, [place] [facility] 1.2.840.114 350.1.13.10 4.2.7.2.686 [id number] [id number] [facility] 2022-09-09 00:00:00 2022-09-09 00:00:00 [facility] 1.2.840.114 350.1.13.10 4.2.7.2.686 [id number] 059 [id number] [facility] 2022-09-02 10:40:00 2022-09-02 10:41:13 [facility] [id number] [facility] 2022-09-02 10:40:00 2022-09-02 10:41:13 [facility] 1.2840.114 350.1.13.10 4.2.7.2.686 [id number] 059 [id number] [facility] 2022-08-19 09:34:16 2022-08-19 23:59:00 Outpatient R SVEN [facility] [id number] [facility] 2022-08-19 10:30:00 2022-08-19 11:00:00 Nurse Visit Visit, [facility] Nurse [facility]ven [facility] 1.2840.114 350.1.13.10 4.2.7.2.686 [id number] 059 [id number] [facility] 2022-08-19 00:00:00 2022-08-19 00:00:00 Orders Only Doctor Unassigned, [place] [facility] 1.2.840.114 350.1.13.10 4.2.7.2.686 [id number] [id number] [facility] 2022-08-19 00:00:00 2022-08-19 00:00:00 [facility] 1.2840.114 350.1.13.10 4.2.7.2.686 [id number] 059 [id number] [facility] 2022-08-18 00:00:00 2022-08-18 00:00:00 Telephone Miller Machuca [facility] N[facility] BUILDING 1.2.840.114 350.1.13.10 4.2.7.2.686 [id number] 059 [id number] [facility] 2022-08-17 08:00:00 2022-08-17 08:00:00 Outpatient R SVEN [facility] [id number] [facility] 2022-08-12 00:00:00 2022-08-12 00:00:00 Edith Machuca [facility] NAL BUILDING 1.2.840.114 350.1.13.10 4.2.7.2.686 [id number] 059 [id number] [facility] 2022-08-11 00:00:00 2022-08-11 00:00:00 Telephone Sven [facility] BUILDING 1.2.840.114 350.1.13.10 4.2.7.2.686 [id number] 059 [id number] [facility] 2022-08-04 00:00:00 2022-08-04 00:00:00 Telephone Sven [facility] MEDICAL OFFICE BUILDING 1.2.840.114 350.1.13.10 4.2.7.2.686 [id number] 059 [id number] [facility] 2022-08-04 00:00:00 2022-08-04 00:00:00 Telephone [facility] 1.2.840.114 350.1.13.10 4.2.7.2.686 [id number] [id number] [facility] 2022-08-04 00:00:00 2022-08-04 00:00:00 Telephone Sven [facility] OFFICE BUILDING 1.2.840.114 350.1.13.10 4.2.7.2.686 [id number] 059 [id number] [facility] 2022-07-13 00:00:00 2022-07-13 00:00:00 Orders Only Doctor Unassigned, [place] [facility] 1.2.840.114 350.1.13.10 4.2.7.2.686 [id number] 009 [id number] [facility] 2022-05-03 18:16:00 2022-05-17 11:40:00 Inpatient 3 Jack Gunn ENC[facility] CVA [id number] 0822 [facility] 2022-05-10 00:00:00 2022-05-10 23:59:00 Outpatient R MILLER MACHUCA [facility] [id number] [facility] 2022-05-10 00:00:00 2022-05-10 23:59:00 Hospital Encounter [facility] 1.2840.114 350.1.13.10 4.2.7.2.686 [id number] [facility] 2021-10-04 11:16:00 2021-10-04 17:23:00 Emergency X JOAO LENTZ [facility] [id number] [facility] 2021-10-04 11:16:00 2021-10-04 17:23:00 Emergency Joao Lentz [facility] 1.840.114 350.1.13.10 4.2.7.2.686 [id number] [id number] [facility] 2021-04-27 00:00:00 2021-04-27 23:59:00 Hospital Encounter [facility] 1.2.840.114 350.1.13.10 4.2.7.2.686 [id number] [id number] [facility] 2021-04-27 00:00:00 2021-04-27 00:00:00 [facility] [id number] [facility] 2021-03-23 00:00:00 2021-03-23 23:59:00 [facility] 1.840.114 350.1.13.10 4.2.7.2.686 [id number] [facility] 2021-03-23 00:00:00 2021-03-23 00:00:00 Outpatient SVEN [facility] [id number] [facility] 2021-02-16 00:00:00 2021-02-16 23:59:00 [facility] 1.840.114 350.1.13.10 4.2.7.2.686 [id number] [facility] 2021-02-16 00:00:00 2021-02-16 00:00:00 Outpatient SVEN [facility] [id number] [facility] 2021-01-05 00:00:00 2021-01-05 00:00:00 Outpatient SVEN [facility] [id number] [facility] 2020-12-20 09:20:00 2020-12-20 16:52:00 Emergency Farhana Salazar [facility] 1.840.114 350.1.13.10 4.2.7.2.686 [id number] 084 [id number] [facility] 2020-12-04 00:00:00 2020-12-04 00:00:00 Outpatient R SVEN [facility] [id number] [facility] 2020-11-25 00:00:00 2020-11-25 00:00:00 Orders Only Doctor Unassigned, [place] [facility] 1.840.114 350.1.13.10 4.2.7.2.686 [id number] [id number] [facility] 2020-11-19 00:00:00 2020-11-19 00:00:00 Transition of Care Jennifer Johnson 1.2.840.114 350.1.13.10 4.2.7.2.686 [id number] [facility] 2020-11-15 12:38:00 2020-11-18 19:08:00 Inpatient X [facility]AVA GRAY [facility] [id number] [facility] 2020-11-15 12:38:00 2020-11-18 19:08:00 Hospital Encounter Michael Kay Elena [facility] 1.2.840.114 350.1.13.10 4.2.7.2.686 [id number] 098 [id number] [facility] Results Test Description Test Time Test Comments Results Result Co mments Source [facility] (NA, K, CL, CO2, Glucose, BUN, Creatinine, CA) - Code [id number] 18:23:37* Test Item Value Reference Range Interpretation Comme nts NA (test code = 1143334134) 136 mmol/L 135-145 K (test code = 3159105026) 4.0 mmol/L 3.5-5.0 CL (test code = 1347909974) 100 mmol/L 98-108 CO2 TOTAL (test code = 6178677182) 33 mmol/L 23-31 H AGAP (test code = 2088547840) 2-16 BUN (test code = 2887002211) 16 mg/dL 7-23 GLUCOSE (test code = 8340313057) 149 mg/dL 70-110 H CREATININE (test code = 7399635195) 0.74 mg/dL 0.50-1.04 CALCIUM (test code = 7577602139) 9.6 mg/dL 8.6-10.6 eGFR (test code = 3757622888) mL/min/1.73m2 RADHA (test code = RADHA) Association of Glomerular Filtration Rate (GFR) and Staging of Kidney Disease* + --+ --+ ------+| GFR (mL/min/1.73 m2) ?| With Kidney Damage ?| ?Without Kidney Damage+ --------+ --------+ +| ?>90 ?| ?Stage one ?| ? Normal ?+ ---+ ---+ -------+| ?60-89 ?| ?Stage two ?| ? Decreased GFR ? + --+ --+ ------+| ?30-59 ?| ?Stage three ?| ? Stage three ? + --+ --+ ------+| ?15-29 ?| ?Stage four ? | ? Stage four ?+ ---+ ---+ -------+| ?<15 (or dialysis) ? ?| ?Stage five ? | ? Stage five ?+ ---+ ---+ -------+ *Each stage assumes the associated GFR level has been in effect for at least three months. ?Stages 1 to 5, with or without kidney disease, indicate chronic kidney disease. Notes: Determination of stages one and two (with eGFR >59mL/min/1.73 m2) requires estimation of kidney damage for at least three months as defined by structural or functional abnormalities of the kidney, manifested by either:Pathological abnormalities or Markers of kidney damage (including abnormalities in the composition of the blood or urine or abnormalities in imaging tests). Lab Interpretation (test code = 49699-4) [facility] Code [id number] 18:21:16* Test Item Value Reference Range Interpretation Comme [facility] APTT Patient (test code = 3173-2) See_Comment [Automated message] The system which generated this result transmitted reference range: 23 - 38 Seconds. The reference range was not used to interpret this result as normal/abnormal. RADHA (test code = RADHA) The [facility] patient population mean normal value for aPTT is 30 seconds. Lab Interpretation (test code = 26425-1) Normal [facility] / [facility]R - Code [id number] 18:18:56* Test Item Value Reference Range Interpretation Comme [facility] PROTIME PATIENT (test code = 5964-2) See_Comment [Automated Keraderm ge] The system which generated this result transmitted reference range: 12.0 - 14.7 Seconds. The reference range was not used to interpret this result as normal/abnormal. INR (test code = 6301-6) Normal INR <1.1; Warfarin Therapeutic range 2.0 to 3.0 or 2.5 to 3.5, depending upon the indications. Lab Interpretation (test code = 80766-3) Normal [facility] without Diff - Code [id number] 18:11:39* Test Item Value Reference Range Interpretation Comme nts WBC (test code = 6690-2) See_Comment [Automated message] The system which generated this result transmitted reference range: 4.30 - 11.10 10*3/?L. The reference range was not used to interpret this result as normal/abnormal. RBC (test code = 789-8) See_Comment L [Automated message] The system which generated this result transmitted reference range: 3.93 - 5.25 10*6/?L. The reference range was not used to interpret this result as normal/abnormal. HGB (test code = 718-7) 11.4 g/dL 11.6-15.0 L HCT (test code = 4544-3) 36.0 % 35.7-45.2 MCH (test code = 785-6) 32.8 pg 25.9-32.8 MCV (test code = 787-2) 103.4 fL 80.6-95.5 H MCHC (test code = 786-4) 31.7 g/dL 31.6-35.1 PLT (test code = 777-3) See_Comment L [Automated message] The system which generated this result transmitted reference range: 166 - 358 10*3/?L. The reference range was not used to interpret this result as normal/abnormal. MPV (test code = 69328-9) 9.5 fL 9.5-12.9 RDW-CV (test code = 788-0) 12.0 % 12.0-15.5 RDW-SD (test code = 04976-5) 46.0 fL 39.0-49.9 NRBC x10^3 (test code = 6001097412) <0.01 See_Comment [Automated messa ge] The system which generated this result transmitted reference range: 10*3/?L. The reference range was not used to interpret this result as normal/abnormal. NRBC/100 WBC (test code = 9684410233) See_Comment [Automated messa Explore Engage] The system which generated this result transmitted reference range: 0.0 - 10.0 /100 WBCs. The reference range was not used to interpret this result as normal/abnormal. IPF % (test code = 5025232225) Lab Interpretation (test code = 55009-7) [facility]normal [facility] W/O [id number] 16:36:09No acute intracranial hemorrhage or mass effect. No acute fracture or traumatic malalignment of thecervical spine. Preliminary Report Dictated by Resident: Hugo Chavez MD.,have reviewed this study and agree with theabove report.EXAM: CT HEAD WITHOUT CONTRAST, CT C-SPINE WITHOUT CONTRAST HISTORY: fall, hit head COMPARISON: MR brain, 11/16/2020, CT head without contrast 11/15/20, CTA of theneck, 11/15/2020. TECHNIQUE: Routine CTs of the head and cervical spine were performedwithout intravenous contrast, and coronal and sagittal reformatted imageswere generated. FINDINGS: CT HEAD: No calvarial fracture. A 0.6 cm sclerotic focus is seen in the leftsphenoid body, unchanged a nd may reflect a bone island. The ventricles and cerebral sulci are normal in caliber and configurationfor the patient's age. No hydrocephalus, midline shift or pathologicalextra-axial fluid collection is present. The basal cisterns areunremarkable. There is no acute intracranial hemorrhage or significant mass effect.Scattered deep and periventricular white matter hypoattenuating foci arenonspecific but likely represent microvascular ischemic changes, unchanged.Chronic right cerebellar lacunar infarct is present. A chronic appearingleft external capsule lacunar infarct is present. The crane-white matterdifferentiation is preserved. CT CERVICAL SPINE: The vertebral bodies are normal in heightand alignment. No acute fracturesare present. Stable grade 1 anterolisthesis of C4 on C5 is present. Thecraniocervical junction is intact. Mild spondylotic changes of the cervical spine are seen mostprominent atC6-C7. Moderate facet and uncovertebral arthrosis is visualized mostprominent at the right C4-C5 level. The prevertebral soft tissues are unremarkable. Unchanged biapical nodularpleural thickening is seen in the lungs. [facility], Radiant Results Inft - 12/20/2020 11:37 AM CDTEXAM: CT HEAD WITHOUT CONTRAST, CT C-SPINE WITHOUT CONTRASTHISTORY: fall, hit head COMPARISON: MR brain, 11/16/2020, CT head without contrast 11/15/20, CTA of theneck, 11/15/2020. TECHNIQUE: Routine CTs of the head and cervical spine were performedwithout intravenous contrast, and coronal and sagittal reformatted imageswere generated. FINDINGS: CT HEAD:No calvarial fracture. A 0.6 cm sclerotic focus is seen in theleftsphenoid body, unchanged and may reflect a bone island. The ventricles and cerebral sulci are normal in caliber and configurationfor the patient's age. No hydrocephalus, midline shift or pathologicalextra-axial fluid collection is present. The basal cisterns areunremarkable.There is no acute intracranial hemorrhage or significant mass effect.Scattered deep and periventricular white matter hypoattenuating foci arenonspecific but likely represent microvascular ischemic changes, unchanged.Chronic right cerebellar lacunar infarct is present. A chronic appearingleft external capsule lacunar infarct is present. The crane-white matterdifferentiation is preserved.CT CERVICAL SPINE:The vertebral bodies are normal in height and alignment. No acute fracturesare present. Stable grade 1 anterolisthesis of C4 on C5 is present. Thecraniocervical junction is intact. Mild spondylotic changes of the cervical spine are seen most prominent atC6-C7. Moderate facet and uncovertebral arthrosis is visualized mostprominent at the right C4-C5 level.The prevertebral soft tissues are unremarkable. Unchanged biapical nodularpleural thickening is seen in the lungs.IMPRESSIONNo acute intracranial hemorrhage or mass effect.No acute fracture or traumatic malalignment of the cervical spine.Preliminary Report Dictated by Resident: Hugo Bryant MD., have reviewed this study and agree with theabove report.[facility] W/O [id number] 16:36:09No acute intracranial hemorrhage or mass effect. No acute fracture or traumatic malalignment of thecervical spine. Preliminary Report Dictated by Resident: Hugo Chavez MD.,have reviewed this study and agree with theabove report.EXAM: CT HEAD WITHOUT CONTRAST, CT C-SPINE WITHOUT CONTRAST HISTORY: fall, hit head COMPARISON: MR brain, 11/16/2020, CT head without contrast 11/15/20, CTA of theneck, 11/15/2020. TECHNIQUE: Routine CTs of the head and cervical spine were performedwithout intravenous contrast, and coronal and sagittal reformatted imageswere generated. FINDINGS: CT HEAD: No calvarial fracture. A 0.6 cm sclerotic focus is seen in the leftsphenoid body, unchanged a nd may reflect a bone island. The ventricles and cerebral sulci are normal in caliber and configurationfor the patient's age. No hydrocephalus, midline shift or pathologicalextra-axial fluid collection is present. The basal cisterns areunremarkable. There is no acute intracranial hemorrhage or significant mass effect.Scattered deep and periventricular white matter hypoattenuating foci arenonspecific but likely represent microvascular ischemic changes, unchanged.Chronic right cerebellar lacunar infarct is present. A chronic appearingleft external capsule lacunar infarct is present. The crane-white matterdifferentiation is preserved. CT CERVICAL SPINE: The vertebral bodies are normal in heightand alignment. No acute fracturesare present. Stable grade 1 anterolisthesis of C4 on C5 is present. Thecraniocervical junction is intact. Mild spondylotic changes of the cervical spine are seen mostprominent atC6-C7. Moderate facet and uncovertebral arthrosis is visualized mostprominent at the right C4-C5 level. The prevertebral soft tissues are unremarkable. Unchanged biapical nodularpleural thickening is seen in the lungs. [facility], [facility] In[facility] User - 12/20/2020 11:37 AM CDTEXAM: CT HEAD WITHOUT CONTRAST, CT C-SPINE WITHOUT CONTRASTHISTORY: fall, hit head COMPARISON: MR brain, 11/16/2020, CT head without contrast 11/15/20, CTA of theneck, 11/15/2020. TECHNIQUE: Routine CTs of the head and cervical spine were performedwithout intravenous contrast, and coronal and sagittal reformatted imageswere generated. FINDINGS: CT HEAD:No calvarial fracture. A 0.6 cm sclerotic focus is seen in theleftsphenoid body, unchanged and may reflect a bone island. The ventricles and cerebral sulci are normal in caliber and configurationfor the patient's age. No hydrocephalus, midline shift or pathologicalextra-axial fluid collection is present. The basal cisterns areunremarkable.There is no acute intracranial hemorrhage or significant mass effect.Scattered deep and periventricular white matter hypoattenuating foci arenonspecific but likely represent microvascular ischemic changes, unchanged.Chronic right cerebellar lacunar infarct is present. A chronic appearingleft external capsule lacunar infarct is present. The crane-white matterdifferentiation is preserved.CT CERVICAL SPINE:The vertebral bodies are normal in height and alignment. No acute fracturesare present. Stable grade 1 anterolisthesis of C4 on C5 is present. Thecraniocervical junction is intact. Mild spondylotic changes of the cervical spine are seen most prominent atC6-C7. Moderate facet and uncovertebral arthrosis is visualized mostprominent at the right C4-C5 level.The prevertebral soft tissues are unremarkable. Unchanged biapical nodularpleural thickening is seen in the lungs.IMPRESSIONNo acute intracranial hemorrhage or mass effect.No acute fracture or traumatic malalignment of the cervical spine.Preliminary Report Dictated by Resident: Parvez Reich, Hugo Briggs MD., have reviewed this study and agree with theabove report.[facility]+ VW [id number] 15:24:36Questionable thumb metacarpal soft tissue laceration. Lucency through the thumb metacarpal base which may be artifactual orsecondary to a fracture, correlate for tenderness upon palpation. Preliminary Report Dictated by Resident: Melba Buckley I, Christian Buchanan MD., have reviewed this study and agree with the abovereport.EXAM: XR HAND 3+ VW LEFT HISTORY: Left hand pain s/p fall COMPARISON: None. FINDINGS: Limited evaluation due to poor positioning on lateral and oblique views. Radiographs of the left hand demonstrate diffuse osteopenia. Subtle linearlucency through the first metacarpal base is seen. No dislocations. Jointspaces are preserved. Alignment is within normal limits. Soft tissue defectand mild soft tissue swelling seen about the dorsal thumb metacarpal. [facility], [facility] Results In[facility] User - 12/20/2020 10:25 AM CDTEXAM: XR HAND 3+ VW LEFTHISTORY: Left hand pain s/p fall COMPARISON: None.FINDINGS: Limited evaluation due to poor positioning on lateral and oblique views.Radiographs ofthe left hand demonstrate diffuse osteopenia. Subtle linearlucency through the first metacarpal base is seen. No dislocations. Jointspaces are preserved. Alignment is within normal limits. Soft tissue defectand mild soft tissue swelling seen about the dorsal thumb metacarpal.IMPRESSIONQuestionable thumb metacarpal soft tissue laceration.Lucency through the thumb metacarpal base which may be artifactual orsecondary to a fracture, correlate for tenderness upon palpation.Preliminary Report Dictated by Resident: Melba Maria, Christian Buchanan MD., have reviewed this study and agree with the abovereport.[facility] [id number] 14:38:47* Test Item Value Reference Range Interpretation Comme nts MAGNESIUM (test code = 9149597473) 1.6 mg/dL 1.7-2.4 L Lab Interpretation (test cod e = 32842-1) Abnormal [facility] Campus[facility]IC MET[facility]OLIC PANEL (NA, K, CL, CO2, GLUCOSE, BUN, CREATININE, CA)2020-11-18 14:38:46* Test Item Value Reference Range Interpretation Comme nts NA (test code = 9769146177) 141 mmol/L 135-145 K (test code = 4710477005) 3.5 mmol/L 3.5-5.0 CL (test code = 1638088398) 108 mmol/L 98-108 CO2 TOTAL (test code = 9941896713) 27 mmol/L 23-31 AGAP (test code = 8817958842) 2-16 BUN (test code = 0594743488) 8 mg/dL 7-23 GLUCOSE (test code = 2640823253) 102 mg/dL 70-110 CREATININE (test code = 6087649654) 0.61 mg/dL 0.50-1.04 CALCIUM (test code = 3316697722) 9.5 mg/dL 8.6-10.6 eGFR Calculation (Non-) (test code = 7900706368) mL/min/1.73m2 eGFR Calculation () (test code = 6473693771) mL/min/1.73m2 RADHA (test code = RADHA) Association of Glomerular Filtration Rate (GFR) and Staging of Kidney Disease* + -+ + ---+| GFR (mL/min/1.73 m2) ?| With Kidney Damage ?| ?Without Kidney Damage+ -------+ ------+ ---------+| ?>90 ?| ?Stage one ?| ? Normal ?+ --+ -+ ----+| ?60-89 ?| ?Stage two ?| ? Decreased GFR ? + -+ + ---+| ?30-59 ?| ?Stage three ?| ? Stage three ? + -+ + ---+| ?15-29 ?| ?Stage four ? | ? Stage four ?+ --+ -+ ----+| ?<15 (or dialysis) ? ?| ?Stage five ? | ? Stage five ?+ --+ -+ ----+ *Each stage assumes the associated GFR level has been in effect for at least three months. ?Stages 1 to 5, with or without kidney disease, indicate chronic kidney disease. Notes: Determination of stages one and two (with eGFR >59mL/min/1.73 m2) requires estimation of kidney damage for at least three months as defined by structural or functional abnormalities of the kidney, manifested by either:Pathological abnormalities or Markers of kidney damage (including abnormalities in the composition of the blood or urine or abnormalities in imaging tests). [facility] ONLY COVID [id number] 03:30:02COVID DMT InterpretationInterpretation/Recommendations: Molecular NAAT Tests for Active Infection with the SARS-CoV-2 Virus: The patient has currently tested negative for the SARS-CoV-2 virus that causes COVID-19 illness. This most likely indicates that the patient does not have an active infectionwith the SARS-CoV-2 virus. However, infection is not completely ruled out as the false negative rate for molecular NAAT testing using a nasopharyngeal sample can be up to 30%, mostly dependent on thetiming of sample collection in relation to illness onset and any deficiencies in sampling techniques. If the patient has symptoms concerning for COVID-19 illness, a repeat NAAT test (PCR, Rapid ID Now, etc.) should be performed, at which time the SARS-CoV-2 virus - if present - may have reached a detectable viral load (usually peaking by the end of the first week of symptoms). Tests for IgM and/or IgG Antibodies to the SARS-CoV-2 Virus: If the patient develops COVID-19 illness in the future, testing for IgM and IgG antibodies approximately 3 weeks after illness onset will likely indicate if the patient has produced antibodies to the SARS-CoV-2 virus. However, some patients may take longer to develop detectable antibodies, while some patients who were infected with SARS-CoV-2 may never develop antibodies. While antibodies to SARS-CoV-2 may provide some degree of immunity, at this time the strength and duration of the antibody response is unknown. ? ? Interpretation Result Comments:These interpretation comments are based upon all COVID-19 testing the patient has had at [facility], including molecular NAAT testing (more commonly known as PCR testing and Rapid ID Now testing) and antibody testing. It does not take into account any testing that a patient has had outside of the [facility] medical record. [facility] LABORATORY SERVICESCOVID [id number] Rapid ID NOW (no units) ? ? Date ? Value ? 11/15/2020 ? Not Detected ? [facility] LABORATORY SERVICESUnTexas [facility] for ChildrenCREATINE [id number] 17:17:51* Test Item Value Reference Range Interpretation Comme nts CK (test code = 7623212860) 353 U/L 33-194 H Lab Interpretation (test cod e = 05715-3) Abnormal [facility] CampusBasi Metabolic Panel (Na, K, Cl, CO2, Glucose, BUN, Creatinine, Ca)2020-11-17 12:03:55* Test Item Value Reference Range Interpretation Comme nts NA (test code = 8373909831) 136 mmol/L 135-145 K (test code = 9966365446) 3.2 mmol/L 3.5-5.0 L CL (test code = 3330333291) 107 mmol/L 98-108 CO2 TOTAL (test code = 3374409491) 24 mmol/L 23-31 AGAP (test code = 8298751419) 2-16 BUN (test code = 1413969233) 11 mg/dL 7-23 GLUCOSE (test code = 6231449925) 92 mg/dL 70-110 CREATININE (test code = 7617895260) 0.61 mg/dL 0.50-1.04 CALCIUM (test code = 6194952756) 9.0 mg/dL 8.6-10.6 eGFR Calculation (Non-) (test code = 3845582237) mL/min/1.73m2 eGFR Calculation () (test code = 1861832050) mL/min/1.73m2 RADHA (test code = RADHA) Association of Glomerular Filtration Rate (GFR) and Staging of Kidney Disease* + --+ --+ ------+| GFR (mL/min/1.73 m2) ?| With Kidney Damage ?| ?Without Kidney Damage+ --------+ --------+ +| ?>90 ?| ?Stage one ?| ? Normal ?+ ---+ ---+ -------+| ?60-89 ?| ?Stage two ?| ? Decreased GFR ? + --+ --+ ------+| ?30-59 ?| ?Stage three ?| ? Stage three ? + --+ --+ ------+| ?15-29 ?| ?Stage four ? | ? Stage four ?+ ---+ ---+ -------+| ?<15 (or dialysis) ? ?| ?Stage five ? | ? Stage five ?+ ---+ ---+ -------+ *Each stage assumes the associated GFR level has been in effect for at least three months. ?Stages 1 to 5, with or without kidney disease, indicate chronic kidney disease. Notes: Determination of stages one and two (with eGFR >59mL/min/1.73 m2) requires estimation of kidney damage for at least three months as defined by structural or functional abnormalities of the kidney, manifested by either:Pathological abnormalities or Markers of kidney damage (including abnormalities in the composition of the blood or urine or abnormalities in imaging tests). Lab Interpretation (test code = 09277-4) Abnormal [facility] CHEST 1 [id number] 07:40:49Impression: No radiographic evidence for acute cardiopulmonary disease. RL: 460 AFC: [id number] Ordering physician: TULIO NORIEGA Indication: Stroke protocol, short of breath Comparison: None Findings: Single AP view of the chest. The cardiopericardial silhouette iswithin normal limits. The lungs are clear bilaterally. The visualized nicky nythorax is intact. [facility], [facility] Results In[facility] User - 11/17/2020 1:41 AM CSTOrdering physician: TULIO TREVINOndication: Stroke protocol, short of breathComparison: NoneFindings: Single AP view of the chest. The cardiopericardial silhouette iswithin normal limits. The lungs are clear bilaterally. The visualized bonythorax is intact.IMPRESSIONImpression:No radiographic evidence for acute cardiopulmonary disease.RL: [id number]: [id number] signed by Carie Butler MD, PhD at 11/17/2020 1:40 AM [facility]CT ANGIOGRAM [id number] 01:59:17There is no significant plaque in the common carotid carotidbifurcation or proximal ICA and no hemodynamically significant stenosis.2. No hemodynamically significant stenosis of the intracranial vessels.3. Codominant vertebral arteries. RL: 6200AFC: [id number] END OF REPORT Ordering Physician: NAVA GRAY Clinical Indication: Stroke Additional Cli nical Information: Comparison: None Technical Quality: Good Technique: The exam is performed with axial postcontrast images with 3-DMIPS reconstruction. ?The exam was performed using the ALARA ?principles. Interpretation based on extrapolated NASCET criteria. Findings: There is a CT angiogram head and neck. The exam was performed on11/15/2020 at 2140 hours. However we are only receiving the images on11/16/2020 at 1955 hours. There is mild atherosclerosis of the aortic arch. The origins of greatvessels are unremarkable. The vertebral arteries are codominant. There is no significant plaque in the carotid bifurcation or proximal ICA.There is tortuosity of the distal ICA bilaterally. There is tortuo sity of the cavernous carotids with no significant plaque orstenosis. The CT angiogram of the head demonstrates no hemodynamically significantstenosis of the anterior middle and posterior cerebral arteries. [facility], [facility] Results Inft User - 11/16/2020 8:00 PM CSTOrdering Physician: NAVA GRAYClinical Indication: Stroke Additional Clinical Information:Comparison: NoneTechnical Quality: GoodTechnique: The exam is performed with axial postcontrast images with 3-DMIPS reconstruction. The exam was performed using the ALARA principles. Interpretation based on extrapolated NASCET criteria.Findings: There is a CT angiogram head and neck. The exam was performed on11/15/2020 at 2140 hours. However we are only receiving the images on11/16/2020 at 1955 hours.There is mild atherosclerosis of the aorticarch. The origins of greatvessels are unremarkable. The vertebral arteries are codominant.There is no significant plaque in the carotid bifurcation or proximal ICA.There is tortuosity of the distal ICA bilaterally.There is tortuosity of the cavernous carotids with no significant plaque orstenosis.The CT angiogram of the head demonstrates no hemodynamically significantstenosis of the anterior middle and posterior cerebral arteries.IMPRESSIONThere is no significant plaque in the common carotid car otidbifurcation or proximal ICA and no hemodynamically significant stenosis.2. No hemodynamically significant stenosis of the intracranial vessels.3. Codominant vertebral arteries.RL: [id number]: [id number] OF REPORT UnTexas [facility] ChildrenCT ANGIOGRAM [id number] 01:59:17There is no significant plaque in the common carotid carotidbifurcation or proximal ICA and no hemodynamically significant stenosis.2. No hemodynamically significant stenosis of the intracranial vesse ls.3. Codominant vertebral arteries. RL: 6200AFC: [id number] END OF REPORT Ordering Physician: NAVA GRAY Clinical Indication: Stroke Additional Clinical Information: Comparison: None Technical Quality: Good Technique: The exam is performed with axial postcontrast images with 3-DMIPS reconstruction. ?The exam was performed using the ALARA ?principles. Interpretation based on extrapolated NASCET criteria. Findings: There is a CT angiogram head and neck. The exam was performed on11/15/2020 at 2140 hours. However we are only receiving the images on11/16/2020 at 1955 hours. There is mild atherosclerosis of the aortic arch. The origins of greatvessels are unremarkable. The vertebral arteries are codominant. There is no significant plaque in the carotid bifurcation or proximal ICA.There is tortuosity of the distal ICA bilaterally. There is tortuosity of the cavernous carotids with no significant plaque orstenosis. The CT angiogram of the head d emonstrates no hemodynamically significantstenosis of the anterior middle and posterior cerebral arteries. [facility], Radiant Results Inft User - 11/16/2020 8:00 PM CSTOrdering Physician: NAVA Averyinical Indication: Stroke Additional Clinical Information:Comparison: NoneTechnical Quality: GoodTechnique: The exam is performed with axial postcontrast images with 3-DMIPS reconstruction. The exam was performed using the ALARA principles. Interpretation based on extrapolated NASCET criteria.Findings: There is a CT angiogram head and neck. The exam was performed on11/15/2020 at 2140 hours. However we are only receiving the images on11/16/2020 at 1955 hours.There is mild atherosclerosis of the aortic arch. The origins of greatvessels are unremarkable. The vertebral arteries are codominant.There is no significant plaque in the carotid bifurcation or proximal ICA.There is tortuosity of the distal ICA bilaterally.There is tortuosity of the cavernous carotids with no significant plaque orstenosis.The CT angiogram of the head demonstrates no hemodynamically significantstenosis of the anterior middle and posterior cerebral arteries.IMPRESSIONThere is no significant plaque in the common carotid carotidbifurcation or proximal ICA and no hemodynamically significant stenosis.2. No hemodynamically significant stenosis of the intracranial vessels.3. Codominant vertebral arteries.RL: [id number]: [id number] OF REPORT [facility] ChildrenMR STROKE BRAIN WO [id number] 18:10:26Impression: No acute intracranial abnormality. Preliminary Report Dictated by Resident: Hugo Mclean reviewed this study and agree with the above reportwith the following additions: Findings suggestive of small focus of left subacute ischemia in the leftsuperior frontal subcortical white matter. IHugo MD., have reviewed this study and agree with theabove report.E XAMINATION: MR STROKE BRAIN WO CONTRAST HISTORY: Acute stroke COMPARISON: ?CT head without contrast11/15/2020 TECHNIQUE: Multiplanar and multisequence MRI imaging of the brain wasobtained without contrast. FINDINGS: The ventricles and cerebral sulci are normal in caliber and configuration.No midlineshift, hydrocephalus or pathological extra-axial fluidcollection is present. The basal cisterns areunremarkable. No intracranial hemorrhage or mass. No restricted diffusion is present to suggest acute infarct. No abnormalgradient blooming. Scattered foci of deep white matter T2/FLAIRhyperintensities are non specific likely represent microvascular ischemicchanges. The T2 flow voids for the major intracranial vessels are unremarkable. Noabnormal fluid signal is present in the mastoid air cells or paranasal airsinuses. The calvarium is normal. Bilateral pseudophakia. The paranasal sinuses areessentially clear. [facility], Radiant Results Inft User - 11/16/2020 12:11 PM CSTEXAMINATION: MR STROKE BRAIN WO CONTRASTHISTORY: Acute stroke COMPARISON: CT head without contrast 11/15/2020TECHNIQUE: Multiplanar and multisequence MRI imaging of the brain wasobtained without contrast.FINDINGS:The ventricles and cerebral sulci are normal in caliber and configuration.No midline shift, hydrocephalus or patholo gical extra-axial fluidcollection is present. The basal cisterns are unremarkable.No intracranial hemorrhage or mass. No restricted diffusion is present to suggest acute infarct. No abnormalgradient blooming. Scattered foci of deep white matter T2/FLAIRhyperintensities are non specific likely represent microvascular ischemicchanges.The T2 flow voids for the major intracranial vessels are unremarkable. Noabnormal fluid signal is present in the mastoid air cells or paranasal airsinuses.The calvarium is normal. Bilateral pseudophakia. The paranasal sinuses areessentially clear. IMPRESSIONImpression:No acute intracranial abnormality. Preliminary Report Dictated by Resident: Hugo Mclean reviewed this study and agree with the above reportwith the following additions: Findingssuggestive of small focus of left subacute ischemia in the leftsuperior frontal subcortical white matter. I, Hugo Briggs MD., have reviewed this study and agree with theabove report.[facility] CampusCREATINE [id number] 13:04:17* Test Item Value Reference Range Interpretation Comme nts CK (test code = 0532092763) 1043 U/L 33-194 H Slight hemolysis Lab Interpretation (test code = 03936-4) Abnormal [facility] LIPID PANEL (32235)(TOTAL CHOLESTEROL, TRIGLYCERIDES, HDL)2020-11-16 10:26:22* Test Item Value Reference Range Interpretation Comme nts CHOL (test code = 5647964380) 116 mg/dL 120-200 L HDL (test code = 4849132702) 45 mg/dL >50 L HDLC RATIO (test code = 9162346735) See_Comment [[facility]ated [place]] The system which generated this result transmitted reference range: <=4.5. The reference range was not used to interpret this result as normal/abnormal. TRIG (test code = 7982426887) 56 mg/dL 30-170 LDL CHOL (test code = 32952-5) 60 mg/dL See_Comment [[employer]ated [place]] The system which generated this result transmitted reference range: <=160. The reference range was not used to interpret this result as normal/abnormal. VLDL (test code = 2504270830) 11 mg/dL 5-60 Lab Interpretation (test code = 04979-2) Abnormal [facility] Metabolic Panel (Na, K, Cl, CO2, Glucose, BUN, Creatinine, Ca)2020-11-16 10:24:01* Test Item Value Reference Range Interpretation Comme nts NA (test code = 5904860408) 140 mmol/L 135-145 K (test code = 1856043845) 3.5 mmol/L 3.5-5.0 CL (test code = 3792762492) 107 mmol/L 98-108 CO2 TOTAL (test code = 7264511000) 30 mmol/L 23-31 AGAP (test code = 4442493140) 2-16 BUN (test code = 9127450816) 9 mg/dL 7-23 GLUCOSE (test code = 2429062591) 79 mg/dL 70-110 CREATININE (test code = 7235782108) 0.67 mg/dL 0.50-1.04 CALCIUM (test code = 6328303856) 9.4 mg/dL 8.6-10.6 eGFR Calculation (Non-) (test code = 6444412964) mL/min/1.73m2 eGFR Calculation () (test code = 2148676217) mL/min/1.73m2 RADHA (test code = RADHA) Association of Glomerular Filtration Rate (GFR) and Staging of Kidney Disease* + -+ + ---+| GFR (mL/min/1.73 m2) ?| With Kidney Damage ?| ?Without Kidney Damage+ -------+ ------+ ---------+| ?>90 ?| ?Stage one ?| ? Normal ?+ --+ -+ ----+| ?60-89 ?| ?Stage two ?| ? Decreased GFR ? + -+ + ---+| ?30-59 ?| ?Stage three ?| ? Stage three ? + -+ + ---+| ?15-29 ?| ?Stage four ? | ? Stage four ?+ --+ -+ ----+| ?<15 (or dialysis) ? ?| ?Stage five ? | ? Stage five ?+ --+ -+ ----+ *Each stage assumes the associated GFR level has been in effect for at least three months. ?Stages 1 to 5, with or without kidney disease, indicate chronic kidney disease. Notes: Determination of stages one and two (with eGFR >59mL/min/1.73 m2) requires estimation of kidney damage for at least three months as defined by structural or functional abnormalities of the kidney, manifested by either:Pathological abnormalities or Markers of kidney damage (including abnormalities in the composition of the blood or urine or abnormalities in imaging tests). [facility] CampusGLYCOSYLATED HEMOGLOBIN (A1C)2020-11-16 06:39:23* Test Item Value Reference Range Interpretation Comme nts HGB A1C (test code = 4548-4) 5.6 % 4.0-6.0 Lab Interpretation (test cod e = 08319-8) Normal [facility] CampusTROPONIN [id number] 06:28:31* Test Item Value Reference Range Interpretation Comme [facility] TROPONIN I (test code = 7034293830) 0.008 ng/mL See_Comment [Automated message] The system which generated this result transmitted reference range: <=0.034. The reference range was not used to interpret this result as normal/abnormal. RADHA (test code = RADHA) Equal or Less than 0.034 ng/ml---Normal ?Note: Cardiac troponin begins to rise 3-4 hours after the onset of ischemia. Repeat in 4-6 hours if the sample was drawn within 3-4 hours of the onset of the symptom and found normal. Between 0.035 and 0.120 ng/mL--- Borderline. Questionable myocardial injury or necrosis ? ?Note: Serial measurement may be necessary to confirm or exclude the diagnosis of myocardial injury or necrosis; Clinical correlation (symptoms, EKGs, imaging studies, and others) required; Repeat in 4-6 hours if clinically indicated. ? Equal or Higher than 0.121 ng/mL---Abnormal. Myocardial Injury or Necrosis Likely ? Biotin has been reported to cause a negative bias, interpret results relative to patient's use of biotin. ? Lab Interpretation (test code = 78026-0) Normal [facility] CampusVERIFYNOW PRUTEST (P2Y12)2020-11-16 06:00:04* Test Item Value Reference Range Interpretation Comme [facility] VerifyNow PRUTest (P2Y12) (test code = 7523326517) See_Comment [Automated message] The system which generated this result transmitted reference range: 182 - 335 PRU. The reference range was not used to interpret this result as normal/abnormal. RADHA (test code = RADHA) Off-drug PRU reference range is 180 - 376. Values less than 180 PRU suggest evidence of a P2Y12 inhibitor effect, which may be explained by P2Y12 receptor medications. ? ? P2Y12 Reaction Units (PRU) indicates the amount of ADP-mediated aggregation specific to the platelet P2Y12 receptor; a LOW PRU indicates a higher response to anti-platelet medication while a HIGH PRU indicates lower platelet inhibitive effect. Patients who have been treated with Glycoprotein IIb/IIIa inhibitor drugs should not be tested with the PRUtest until platelet function has recovered. The recovery period after drug administration is discontinued is approximately 14 days to abciximab (ReoPro) and up to 48 hours for eptifibatide (Integrilin) and tirofiban (Aggrastat). The time to recovery of platelet functions varies among individuals and is not affected by renal dysfunction. Patient with low platelet counts may not give consistent results. Results should be interpreted in conjunction with other laboratory and clinical data available to the clinician. Lab Interpretation (test code = 41391-5) Normal [facility] CampusUrinalysis2021-03-06 22:56:00* Test Item Value Reference Range Interpretation Comme nts APPEARANCE (test code = 6702740043) Clear Clear COLOR (test code = 1326772247) Yellow Yellow PH (test code = 3571521491) 4.8-8.0 SP GRAVITY (test code = 4752870646) 1.003-1.030 GLU U QUAL (test code = 2562607102) Negative Negative BLOOD (test code = 5740306522) Negative Negative KETONES (test code = 6103842011) 15 mg/dL Negative A PROTEIN (test code = 2887-8) Negative Negative UROBILIN (test code = 5858973229) 0.2 mg/dL See_Comment [Automated [employer]] The system which generated this result transmitted reference range: 0-1.0 mg/dL. The reference range was not used to interpret this result as normal/abnormal. BILIRUBIN (test code = 0761278388) Negative Negative NITRITE (test code = 8389423395) Negative Negative LEUK VENECIA (test code = 1706736996) Negative Negative RBC/HPF (test code = 1629322458) See_Comment H [Automated [employer] ge] The system which generated this result transmitted reference range: 0 - 3 HPF. The reference range was not used to interpret this result as normal/abnormal. WBC/HPF (test code = 6048411894) See_Comment H [Automated [employer] ge] The system which generated this result transmitted reference range: 0 - 5 HPF. The reference range was not used to interpret this result as normal/abnormal. BACTERIA (test code = 6307269181) Few Negative A MUCOUS (test code = 5947684140) Slight Negative LPF A SQ EPITH (test code = 7447699057) HPF Lab Interpretation (test code = 85065-0) Abnormal [facility] CampusFREE [id number] 20:33:00* Test Item Value Reference Range Interpretation Comme nts FREE T4 (test code = 4243363916) See_Comment [Automated [employer]] The system which generated this result transmitted reference range: 0.78 - 2.20 ng/dL:. The reference range was not used to interpret this result as normal/abnormal. Lab Interpretation (test code = 31784-6) Normal [facility] CampusCT HEAD WO [id number] 20:18:45Right cerebellar transcortical hypoattenuation could reflect subacute/acutecerebellar infarct. Further evaluation with MRI without contrast isrecommended. No other acute intracranial abnormality identified. Preliminary Report Dictated by Resident: Hugo Suárez reviewed this studyand agree with the above reportwith the following additions: The right cerebellar hypoattenuation could be artifact. Agree that MRI withdiffusion weighted imaging would help differentiate between infarct andartifact. Clinically correlate. Hugo Mei MD., have reviewed this study and agree with theabove report.CT HEAD WITHOUT CONTRAST HISTORY: Neuro deficit, acute, stroke suspected COMPARISON: ?None. TECHNIQUE: Axial CT of the head was performed and reconstructed at 5 mmintervals. Coronal and sagittal reformatted images were generated. FINDINGS: No intracranial abnormality such as hemorrhage, edema, mass-effect, midlineshift, or extra axial fluid collection is appreciated. The ventricles, sulci, and basal cisterns are within normal limits for thepatient's age. No hydrocephalus is seen. Right cerebellar transcortical hypoattenuation could reflect subacute/acuteright cerebellar infarct. The cerebral crane-white matter differentiation ispreserved. Probably chronic ischemic changes of the white matter. The calvarium and skull base are intact. The visualized paranasal sinusesandmastoid air cells are clear. [facility], Radiant Results Inft User - 11/15/2020 2:19 PM CSTCT HEAD WITHOUT CONTRASTHISTORY: Neuro deficit, acute, stroke suspected COMPARISON: None.TECHNIQUE: Axial CT of the head was performed and reconstructed at 5 mmintervals. Coronal and sagittal reformatted images were generated.FINDINGS:No intracranial abnormality such as hemorrhage, edema, mass- effect, midlineshift, or extra axial fluid collection is appreciated.The ventricles, sulci, and basal cisterns are within normal limits for thepatient's age. No hydrocephalus is seen.Right cerebellar transcortical hypoattenuation could reflect subacute/acuteright cerebellar infarct. The cerebral crane-white matter differentiation ispreserved. Probably chronic ischemic changes of the white matter. The calvarium and skull base are intact. The visualized paranasal sinusesand mastoid air cells are clear.IMPRESSIONRightcerebellar transcortical hypoattenuation could reflect subacute/acutecerebellar infarct. Further nyla luation with MRI without contrast isrecommended.No other acute intracranial abnormality identified.Preliminary Report Dictated by Resident: Hugo Mclean reviewed this study and agree with the above reportwith the following additions: The right cerebellar hypoattenuation could be artifact. Agree that MRI withdiffusion weighted imaging would help differentiate between infarct andartifact. Clinically correlate. I, Hugo Briggs MD., have reviewed this study and agree with theabove report.[facility] CampusTHYROID STIMULATING [id number] 20:17:00* Test Item Value Reference Range Interpretation Comme nts TSH (test code = 9390489859) See_Comment [Automated [employer]] The system which generated this result transmitted reference range: 0.45 - 4.70 mIU/L. The reference range was not used to interpret this result as normal/abnormal. Lab Interpretation (test code = 58315-7) Normal [facility] CampusTroponin [id number] 19:59:00* Test Item Value Reference Range Interpretation Comme nts TROPONIN I (test code = 7290810752) 0.008 ng/mL See_Comment [Automated message] The system which generated this result transmitted reference range: <=0.034. The reference range was not used to interpret this result as normal/abnormal. RADHA (test code = RADHA) Equal or Less than 0.034 ng/ml---Normal ?Note: Cardiac troponin begins to rise 3-4 hours after the onset of ischemia. Repeat in 4-6 hours if the sample was drawn within 3-4 hours of the onset of the symptom and found normal. Between 0.035 and 0.120 ng/mL--- Borderline. Questionable myocardial injury or necrosis ? ?Note: Serial measurement may be necessary to confirm or exclude the diagnosis of myocardial injury or necrosis; Clinical correlation (symptoms, EKGs, imaging studies, and others) required; Repeat in 4-6 hours if clinically indicated. ? Equal or Higher than 0.121 ng/mL---Abnormal. Myocardial Injury or Necrosis Likely ? Biotin has been reported to cause a negative bias, interpret results relative to patient's use of biotin. ? Lab Interpretation (test code = 40403-6) Normal [facility] CampusN-TERMINAL [id number]-[id number] 19:56:00* Test Item Value Reference Range Interpretation Comme nts NT-proBNP (test code = 2137508567) 1010 pg/mL See_Comment H [Automated message] The system which generated this result transmitted reference range: <=450. The reference range was not used to interpret this result as normal/abnormal. RADHA (test code = RADHA) Biotin has been reported to cause a negative bias, interpret results relative to patient's use of biotin. Lab Interpretation (test code = 14604-3) Abnormal [facility] CampusBasi Metabolic Panel (NA, K, CL, CO2, GLUCOSE, BUN, CREATININE, CA)2020-11-15 19:44:00* Test Item Value Reference Range Interpretation Comme nts NA (test code = 3407716760) 137 mmol/L 135-145 K (test code = 7440307228) 3.6 mmol/L 3.5-5.0 CL (test code = 1040203643) 100 mmol/L 98-108 CO2 TOTAL (test code = 4520310934) 30 mmol/L 23-31 AGAP (test code = 5901165906) 2-16 BUN (test code = 0484008621) 11 mg/dL 7-23 GLUCOSE (test code = 0592531328) 95 mg/dL 70-110 CREATININE (test code = 4927822006) 0.64 mg/dL 0.50-1.04 CALCIUM (test code = 0321474264) 9.7 mg/dL 8.6-10.6 eGFR Calculation (Non-) (test code = 9393528563) mL/min/1.73m2 eGFR Calculation () (test code = 0458239345) mL/min/1.73m2 RADHA (test code = RADHA) Association of Glomerular Filtration Rate (GFR) and Staging of Kidney Disease* + -+ + ---+| GFR (mL/min/1.73 m2) ?| With Kidney Damage ?| ?Without Kidney Damage+ -------+ ------+ ---------+| ?>90 ?| ?Stage one ?| ? Normal ?+ --+ -+ ----+| ?60-89 ?| ?Stage two ?| ? Decreased GFR ? + -+ + ---+| ?30-59 ?| ?Stage three ?| ? Stage three ? + -+ + ---+| ?15-29 ?| ?Stage four ? | ? Stage four ?+ --+ -+ ----+| ?<15 (or dialysis) ? ?| ?Stage five ? | ? Stage five ?+ --+ -+ ----+ *Each stage assumes the associated GFR level has been in effect for at least three months. ?Stages 1 to 5, with or without kidney disease, indicate chronic kidney disease. Notes: Determination of stages one and two (with eGFR >59mL/min/1.73 m2) requires estimation of kidney damage for at least three months as defined by structural or functional abnormalities of the kidney, manifested by either:Pathological abnormalities or Markers of kidney damage (including abnormalities in the composition of the blood or urine or abnormalities in imaging tests). [facility] CampusHepatic Function Panel (ALB, T.PRO, BILI T, BU/BC, ALT, AST, ALK PHOS)2020-11-15 19:44:00* Test Item Value Reference Range Interpretation Comme nts TOTAL BILI (test code = 0369228137) 1.1 mg/dL 0.1-1.1 BILI UNCON (test code = 8277568579) 1.1 mg/dL 0.1-1.1 BILI CONJ (test code = 1981402684) 0.0 mg/dL 0.0-0.3 T PROTEIN (test code = 2736434390) 6.8 g/dL 6.3-8.2 ALBUMIN (test code = 9033274400) 4.1 g/dL 3.5-5.0 ALK PHOS (test code = 8449261741) 101 U/L 34-122 ALTv (test code = 1742-6) 18 U/L 5-35 AST(SGOT) (test code = 6714398064) 31 U/L 13-40 Lab Interpretation (test cod e = 37618-3) Normal [facility] CampusMAGNESIUM2021-03-06 19:44:00* Test Item Value Reference Range Interpretation Comme nts MAGNESIUM (test code = 5305382324) 1.6 mg/dL 1.7-2.4 L Lab Interpretation (test cod e = 61852-9) Abnormal [facility] CampusCREATINE [id number] 19:44:00* Test Item Value Reference Range Interpretation Comme nts CK (test code = 3060724560) 408 U/L 33-194 H Lab Interpretation (test cod e = 43080-9) Abnormal [facility] CampusaPTT2021-03-06 19:40:00* Test Item Value Reference Range Interpretation Comme nts APTT Patient (test code = 3173-2) See_Comment [Automated message] The system which generated this result transmitted reference range: 23 - 38 Seconds. The reference range was not used to interpret this result as normal/abnormal. RADHA (test code = RADHA) The [facility] patient population mean normal value for aPTT is 30 seconds. Lab Interpretation (test code = 00211-7) Normal [facility] CampusCOVID-19 (ID NOW RAPID TESTING)2020-11-15 19:40:00* Test Item Value Reference Range Interpretation Comme nts SARS-CoV-2 Rapid ID NOW (test code = 43031-2) Not Detected Not Detected RADHA (test code = RADHA) ID NOW COVID-19 As say is an isothermal nucleic acid amplification test intended for the qualitative detection of nucleic acid from SARS-CoV-2 viral RNA in nasopharyngeal (SPIRAL MACHINE OPERATOR) specimens. It is used under Emergency Use Authorization (EUA) by FDA. The limit of detection (LOD) of the assay is 125 Genome Equivalents/mL. A positive result is indicative of the presence of SARS-CoV-2 RNA. ?Clinical correlation with patient history and other diagnostic information is necessary to determine patient infection status. A negative (Not Detected) result does not preclude SARS-CoV-2 infection. In patients with clinical symptoms and other tests that are consistent with SARS-CoV-2 infection, negative results should be treated as presumptive negative and a new specimen should be tested with alternative PCR molecular test. Invalid: Please collect a new specimen for repeat patient testing if clinically indicated. Lab Interpretation (test code = 20819-6) Normal [facility] CampusProthrombin Time (PT) / [id number] 19:38:00 * Test Item Value Reference Range Interpretation Comme [facility] PROTIME PATIENT (test code = 5964-2) See_Comment [[facility] [place]] The system which generated this result transmitted reference range: 12.0 - 14.7 Seconds. The reference range was not used to interpret this result as normal/abnormal. INR (test code = 6301-6) Normal INR <1.1; Warfarin Therapeutic range 2.0 to 3.0 or 2.5 to 3.5, depending upon the indications. Lab Interpretation (test code = 75644-9) Normal [facility] CampusCBC with [id number] 19:23:00* Test Item Value Reference Range Interpretation Comme [facility] WBC (test code = 6690-2) See_Comment [[facility] [place]] The system which generated this result transmitted reference range: 4.30 - 11.10 10*3/?L. The reference range was not used to interpret this result as normal/abnormal. RBC (test code = 789-8) See_Comment L [Automated [employer]] The system which generated this result transmitted reference range: 3.93 - 5.25 10*6/?L. The reference range was not used to interpret this result as normal/abnormal. HGB (test code = 718-7) 12.4 g/dL 11.6-15.0 HCT (test code = 4544-3) 38.7 % 35.7-45.2 MCV (test code = 787-2) 102.7 fL 80.6-95.5 H MCH (test code = 785-6) 32.9 pg 25.9-32.8 H MCHC (test code = 786-4) 32.0 g/dL 31.6-35.1 RDW-SD (test code = 42696-1) 44.2 fL 39.0-49.9 RDW-CV (test code = 788-0) 11.7 % 12.0-15.5 L PLT (test code = 777-3) See_Comment [Automated [employer]] The system which generated this result transmitted reference range: 166 - 358 10*3/?L. The reference range was not used to interpret this result as normal/abnormal. MPV (test code = 41599-9) 9.4 fL 9.5-12.9 L NRBC/100 WBC (test code = 2289250291) See_Comment [Automated [employer]] The system which generated this result transmitted reference range: 0.0 - 10.0 /100 WBCs. The reference range was not used to interpret this result as normal/abnormal. NRBC x10^3 (test code = 1957844921) <0.01 See_Comment [Automated [employer]] The system which generated this result transmitted reference range: 10*3/?L. The reference range was not used to interpret this result as normal/abnormal. GRAN MAT (NEUT) % (test code = 770-8) 81.5 % IMM GRAN % (test code = 6707962466) 0.20 % LYMPH % (test code = 736-9) 8.6 % MONO % (test code = 5905-5) 8.6 % EOS % (test code = 713-8) 0.2 % BASO % (test code = 706-2) 0.9 % GRAN MAT x10^3(ANC) (test code = 1001047424) 3.59 10*3/uL 1.88-7.09 IMM GRAN x10^3 (test code = 6171447377) <0.03 0.00-0.06 LYMPH x10^3 (test code = 731-0) 0.38 10*3/uL 1.32-3.29 L MONO x10^3 (test code = 742-7) 0.38 10*3/uL 0.33-0.92 EOS x10^3 (test code = 711-2) <0.03 0.03-0.39 L BASO x10^3 (test code = 704-7) 0.04 10*3/uL 0.01-0.07 Lab Interpretation (test code = 30815-2) Abnormal [facility] Notes Date/Time Note Provider Source 2024-05-16 10:37:31 Jaye has been notified of results. She states she did receive the fax that was sent and also states she spoke with Ximena. She confirmed understanding of recommendations via teach back. Progress Notes Leelee Zamora MD (STAFF) IM-CARDIOVASCULAR DISEASE Reason for anticoagulation with Coumadin: PAF Home dose of Coumadin: Currently 4 mg 4 days a week and 2 mg 3 days a week Goal INR 2-3. INR monitoring: Via [facility] lab INR is 2.2 (05/11/2024) NO changes Patient to repeat INR in 2 weeks. Results informed via staff. Ale Mckay RN [facility] 2024-05-15 10:49:12 Attempted to contact PRANAY Guzman at [facility] to discuss INR results, she was unavailable to take the call so I left a message to call back. INR results and recommendations per Dr Zamora faxed to facility to ATTN: Jaye fax# [phone] Fax confirmation scanned into chart as well. [facility] 2024-05-15 09:52:14 See OV 05/15/2024 [facility] 2024-05-14 10:41:35 Received PT/INR results from [facility], placed in Dr. Zamora's folder for review. Thank you. [facility] 2024-04-19 12:35:05 Results to Jaye Momin RN at [facility]. Verbalized understanding via teachback Home dose of Coumadin: Currently 4 mg 4 days a week and 2 mg 3 days a week Goal INR 2-3. INR monitoring: Via [facility] lab INR is 3.0 (04/18/2024) NO changes Patient to repeat INR in 2 weeks. Anusha Martinez RN [facility] 2024-04-18 16:58:40 See OV 04/18/2024 T [facility] 2024-04-18 16:25:39 Received PT/INR results from [facility], placed in Dr. Zamora's folder for review . Thank you. T [facility] 2024-04-02 11:41:11 Images from the original note were not included. Medication sent in. Thank you T [facility] 2024-04-02 10:40:06 Ruba Gmaing is a 79 year old female Martine from pts facility is residing at is calling back wondering if the nurse was going to send over a refill for the warifan. She said the pt will be running out soon. Please advise [facility] [place] Directors [address] Directors [address] [place]NABE[place] [id number] [facility] 2024-04-02 09:25:02 Spoke with PRANAY Guzman with [facility] assisted living and discussed results and recommendations below. She verbalized understanding via read back. Notes faxed to [facility]. Progress Notes Barby Bobo MD (STAFF) IM-CARDIOVASCULAR DISEASE Reason for anticoagulation with Coumadin: PAF Home dose of Coumadin: Currently 4 mg 5 days a week and 2 mg 2 days a week (T/T). Goal INR 2-3. INR monitoring: [facility] INR is 3.8 (03/29/24) Hold Warfarin for one day Restart 4 mg 4 days a week and 2 mg 3 days a week. Patient to repeat INR in 10 days. Results informed via staff. Ale Mckay RN [facility] 2024-03-30 15:54:01 Attempted to contact any nurse at [facility] to inform patient INR results, spoke to Stephanie chicas stated only nurse is Jaye and she is out until Tuesday. INR results and orders per Dr Bobo were faxed top [facility] and ATTN to Jaye. NR results received via fax from [facility] INR is 3.8 (03/29/24) Dr Bobo reviewed lab results (Dr Zamora is out of the clinic today) Attempted to contact patient to discuss INR results no answer. Per Dr Bobo: Hold Warfarin for one day Restart 4 mg 4 days a week and 2 mg 3 days a week. Patient to repeat INR in 10 days. Labs scanned into chart. [facility] 2024-03-30 14:02:11 INR results received via fax from [facility] INR is 3.8 (03/29/24) Dr Bobo reviewed lab results (Dr Zamora is out of the clinic today) Attempted to contact patient to discuss INR results no answer. Per Dr Bobo: Hold Warfarin for one day Restart 4 mg 4 days a week and 2 mg 3 days a week. Patient to repeat INR in 10 days. Labs scanned into chart. [facility] 2024-03-29 10:20:47 Refill requested for Warfarin, last INR 03/05/24 Home dose of Coumadin: Currently 4 mg 5 days a week and 2 mg 2 days a week (T/T). Goal INR 2-3. INR monitoring: [facility] INR is 2.6--03/02/2024 NO change. INR 2 weeks. Results informed via staff. NO further results available, call to , he stated that patient was in an assisted living facility and that we should contact Jaye Gabriel RN to discuss INR monitoring. Called [phone], Jaye RN had just stepped out, left message to have her call clinic to discuss INR monitoring Anusha Martinez RN [facility] 2024-03-05 16:27:53 PRANAY Guzman at [facility] notfied of results. She verbalized understanding of recommendations. Orders faxed to [facility] and to [facility]. Progress Notes Leelee Zamora MD (STAFF) IM-CARDIOVASCULAR DISEASE Reason for anticoagulation with Coumadin: PAF Home dose of Coumadin: Currently 4 mg 5 days a week and 2 mg 2 days a week (T/T). Goal INR 2-3. INR monitoring: [facility] INR is 2.6--03/02/2024 NO change. INR 2 weeks. Results informed via staff. T [facility] 2024-02-27 16:52:37 Spoke with patient's nurse Jaye at [facility]. Confirmed that they received instructions with when to recheck INR. Patient is going to have done this Tuesday. Orders already faxed to [facility]. She states that she is the only nurse at [facility]. In the future will send faxes attn: Jaye to ensure that faxes are seen by her. She is not always available to take the call. Advised that there will always be follow up for patient's INR results, so if any questions or if they haven't heard anything they should contact the clinic. Ale Mckay RN [facility] 2024-02-27 14:43:33 Spoke with patient's . States that Bernarda asking him questions about patient's INR> Bernarda needs to contact the clinic if they have questions. All of the information/orders regarding patient's INR has been called to them and sent via fax. Attempted to contact Jaye but she is on her lunch break. Asked if she could return call to confirm receipt of INR instructions. [facility] 2024-02-27 13:59:52 Copied from [facility] #[id number]. Topic: Clinical - Medical Advice >> Feb 27, 2024 1:59 PM Patient Filen[employer] P[employer] Developer wrote: Ruba Gaming is a 79 year old female was calling wanting to speak with a nurse regarding the pts inr blood draw Please advise Ph [phone] [facility] 2024-02-23 11:03:38 Called Bernarda and discussed results. Spoke with Jemma and explained changes. She verbalized understanding via teach back. Results faxed to Bernarda along with orders for INR to be one in 10 days. Progress Notes Leelee Zamora MD (STAFF) IM-CARDIOVASCULAR DISEASE Reason for anticoagulation with Coumadin: PAF Home dose of Coumadin: Currently 4 mg 6 days a week and 2 mg 1 day a week. Goal INR 2-3. INR monitoring: [facility] INR is 3.9--02/22/2024 Why no INR since 07/2023? Hold for 3 days, then reduce to 4 mg 5 days a week and 2 mg 2 days a week (T/T). INR around 10 days. Results informed via staff. [facility] 2024-02-23 10:55:08 See OV 02/23/2024 [facility] 2024-02-23 10:15:15 Received INR results from [facility] INR 3.9 on 02/22/2024 Current warfarin dose verified with assisted living facility: 4 mg 6 days a week and 2 mg 1 day a week. Routing to Dr. Zamora [facility] 2024-02-21 11:06:37 Spoke with [facility] nurse Jaye. Orders for INR faxed to [facility]. [facility] 2024-02-20 16:15:30 Patient has not had INR monitored since 06/2023. Tried to contact patient's assisted living facility to speak with Ms. Gaming's nurse. Left message asking for a call back. [facility] 2024-02-20 14:16:56 Ruba Gaming is a 79 year old female spouse calling for refill on Warfarin 4 mg. Please call [phone] [facility] [place] [id number] [facility] 2023-05-26 10:42:22 Formatting of this n ote might be different from the original. Standing INR orders have been faxed to [facility]. A copy was also sent to Bernarda. [facility] 2023-05-26 10:41:51 Formatting of this n ote might be different from the original. ----- Message from Leelee Zamora MD sent at 05/26/2023 10:08 AM CDT ----- [facility]. She is due for INR now. T [facility] 2023-05-12 16:23:00 Formatting of this n ote might be different from the original. [facility] results in Dr. Zamora ADC folder for review. T [facility] 2023-05-02 10:02:33 Formatting of this n ote might be different from the original. Called for results, Nurse at [facility] verbalized understanding with no further questions. Reason for anticoagulation with Coumadin: PAF Home dose of Coumadin: Currently 4 mg QHS Goal INR 2-3. INR monitoring: [facility] INR is 3.34--04/28/2023 Hold warfarin for 1 day, then reduce to 4 mg 6 days a week and 2 mg 1 day a week. INR around 10 days. Results informed via staff. T [facility] 2023-04-28 14:54:03 Formatting of this n ote might be different from the original. Received INR results putting in Dr. Zamora ADC desk for review. T [facility] 2023-04-27 09:13:27 Formatting of this n ote might be different from the original. Orders faxed to fax# provided. Attempted to return call to Tanisha, no answer so left voicemail to notify that orders have been faxed. Also called Bernarda and notified them that orders were faxed to number provided. T [facility] 2023-04-26 15:13:10 Formatting of this n ote might be different from the original. Ruba Gaming is a 78 year old female Patients nursing facility is calling and needing lab orders faxed to Please assist [phone] [facility] 2023-04-15 15:29:26 Formatting of this n ote might be different from the original. Patient has not had INR checked since 02/03/23. Called Bernarda and notified that patient has not had an INR check since January. Patient has standing orders for INR at [facility]. Faxing orders to Bernarda per request. They will take her to have INR check ricky. Current dose 4 mg nightly [facility] Ale Mckay RN [facility] 2023-04-14 09:59:26 Formatting of this n ote might be different from the original. Fax from [facility] did not show any recent readings. Emailed area rep. stated they had not been called in. Faxed notification to [facility] patient lives at to inform to please call in ALL INR readings. [facility]"
[2024-07-13 09:23] VITALS: BMI 26.2
[2024-07-13 10:48] LABS: Specific Gravity 1.021 (1.005-1.030); Urine Bacteria <20 /HPF (<20); Urine Bilirubin NEGATIVE (Negative); Urine Blood Negative (Negative); Urine Clarity Extremely Turbid (Clear); Urine Color Yellow (Yellow); Urine Crystals Unidentified Few /HPF (None Seen); Urine Culture Reflex Order REFLEXED; Urine Glucose NEGATIVE (Negative); Urine Ketones NEGATIVE (Negative); Urine Microscopic Reflex YN ORDER UMIC; Urine Mucus Slight /HPF (None Seen); Urine Nitrite NEGATIVE (Negative); Urine Protein TRACE (Negative); Urine Urobilinogen Normal (Normal); Urine WBC 20-50 /HPF (<5); Urine WBC Clump Rare /HPF (None Seen); Urine Yeast (Budding) Occasional /HPF (None Seen); Urine pH 5.5 (5.0-7.0)
[2024-07-13 11:48] LABS: Absolute Basophils 0.1 K/uL (0-0.5); Absolute Eosinophils 0.1 K/uL (0-0.5); Absolute Lymphocytes (CBC) 1.9 K/uL (0.7-4.9); Absolute Monocytes 0.6 K/uL (0.1-1.3); Absolute Neutrophil 4.4 K/uL (1.8-8.0); Basophils % 0.9 % (0-1.3); Eosinophils % 1.2 % (0-4.4); Hematocrit 38.5 % (36.0-45.0); Hemoglobin 12.5 g/dL (12.0-15.0); Lymphocytes % 26.4 % (15.3-44.8); MCH 32.1 pg (27.0-35.0); MCHC 32.3 g/dL (32.0-36.0); MCV 99.3 fL (80-100); MPV 7.8 fL (7.6-11.3); Monocytes % 9.2 % (3.3-12.3); Neutrophils % 62.3 % (41.7-73.7); Platelets 274 thou/uL (152-406); RBC Red Blood Cell Count 3.88 M/uL (3.86-4.86); Red Cell Distribution Width 13.3 % (12.1-15.2)
[2024-07-13 11:51] LABS: PT Prothrombin Time 32.2 SECONDS (9.4-12.5); Protime INR 2.97
[2024-07-13 12:08] LABS: Albumin 3.5 g/dL (3.4-5.0); Anion Gap 6.2 mEq/L (5.0-15.0); Magnesium 1.8 mg/dL (1.6-2.4); Potassium 3.2 mEq/L (3.5-5.1); Prealbumin 16.4 mg/dL (20-40)
[2024-07-13] MEDS ORDERED: ACETAMINOPHEN 500 MG TAB PO PRN (15:01)
[2024-07-13] MEDS ORDERED: DOCUSATE NA/SENNA CONC 1 TAB PO PRN (15:02)
[2024-07-13] MEDS ORDERED: MELATONIN 3 MG TABLET PO PRN (15:02)
[2024-07-13] MEDS ORDERED: WARFARIN SODIUM 2 MG TAB PO SCH (17:00)
[2024-07-13] MEDS ORDERED: WARFARIN SODIUM 4 MG TAB PO SCH (17:00)
[2024-07-13] MEDS: WARFARIN SODIUM 4 MG TAB PO SCH (17:57)
[2024-07-13] MEDS: METAMUCIL PO SCH (20:00)
[2024-07-13] MEDS ORDERED: PRAMIPEXOLE 1 MG TAB PO SCH (20:00)
[2024-07-13] MEDS: ATORVASTATIN 40 MG TAB PO SCH (20:58)
[2024-07-13] MEDS: CRANBERRY FRUIT EXTRACT 200 MG CAP PO SCH (20:58)
[2024-07-13] MEDS: PRAMIPEXOLE 0.25 MG TAB PO SCH (20:58)
--- NOTE | 2024-07-14 03:03 | HP ---
Date of Admission: 07/13/2024 Time Of Service: 1:30 p.m. Chief Complaint: "I need to get stronger after I had a stroke a bit back." History Of Present Illness: Ms. Cuadra is an 79-year-old, right-handed, patient with a stroke in 2015 and 2020 and shingles with postherpetic neuralgia in 2012, who was in her local assisted living [facility], but over the past few months had significant decline in her physical capacity to mobilize, trans jeff, and perform activities of daily living. She recently saw our nurse practitioner who noted a sig nificant worsening of her previous stroke symptoms where there was significant weakness in the left u pper and lower extremity and as a result had multiple falls and was relying on her and staff to help her mobilize. During her admission visit with the nurse practitioner, her workup did show wo rsening sequelae of stroke with the postherpetic neuralgia involving shingles and the recent falls al shandra with restless legs, dizziness, peripheral neuropathy, hypertension, dyslipidemia, and of course u nsteady gait. She did have medical management and physical therapy did not show significant progress while in the assisted and physician was required to manage pain and incontinence. Due to her lack of progress and requirement for assistance and in addition she had lack of nutrition, exacerbation of stroke symptoms, I have determined that she would be a good candidate for aggressive inpatient rehab ilitation to allow her to be able to walk like she was able to, to get to the dining room, to use her other assistive devices. Currently, she is not able to walk about 10 feet in the apartment, requiri ng moderate assistance throughout. She is very dependent on all activities of daily living in terms of help from others. She is, of course, now admitted to the inpatient rehabilitation unit to help he r return to a prior level of functioning and to decrease the chance of future rehospitalization. Allergies: CODEINE. Medications: Tylenol 500 mg every 6 hours as needed, vitamin C 500 mg daily, Lipitor 40 mg at bedtim e, vitamin D 2000 units daily, HydroDIURIL 25 mg daily, magnesium oxide 400 mg daily, melatonin 3 mg at bedtime, Mobic 7.5 mg daily, Paxil 10 mg daily, pramipexole 3 mg twice daily, Senokot-S 2 at bedti me, Coumadin 4 mg on Tuesday, Tuesday, Tuesday, Tuesday and 2 mg on Tuesday, , Tuesday. We w ill have a target INR between 2 and 3. X-ray Imaging: No new x-rays or imaging. Laboratory Studies: Complete blood count differential is completely normal. White blood cell count 7.0, hemoglobin 12.5, platelets 274. INR 2.97. Her sodium 140, potassium 3.2, chloride 105, carbon dioxide 32, BUN of 26, creatinine 1.05, glucose 97, calcium 10.3, magnesium 1.8, albumin 3.5, prealbu min 16.4. Urinalysis; esterase 500 red blood cells 5-10, white blood cells 20-50, occasional budding yeast, total protein is trace, clarity is extreme turbidity. Code Status: She is full code. Resides at local assisted where she is "back." Social History: No alcohol, tobacco, or IV drug use. Review of Systems: She tells now, "I am falling a lot and I need to get stronger so I would not fall." Otherwise, she s ays she does not have any obvious fevers or chills. Mild myalgias and arthralgias. No significant r mandie. No headaches. No psychiatric issues and no positives on the systems review other than mentione d. Physical Examination: Vital Signs: Blood pressure 125/61, pulse 82, respiratory rate 16, temperature 97.9, oxygen saturati on 98%. General: Ms. Cuadra is sitting in a chair beside bed. Her is at the other side of the bed. HEENT : She appears normocephalic, atraumatic. Sclerae are anicteric. Oropharynx pink and moist. Neck: Supple. Chest: Clear. Heart: Regular. Extremities: No significant edema, cyanosis, or clubbing. Neurologic: Alert, oriented to situation, place, person. She does follow commands appropriately. C ranial nerves show no obvious focal deficits. Extremities: Upper extremities, do move symmetrically with proximal and distal weakness around 4/5. Lower extremities, she has in the left lower extremity around 3/5 in terms of hip flexion and extens ion, knee flexion and extension, and foot flexion and extension. On the right, she is at least 4/5 p roximally and distally. Sensation decreased to left compared to right side. Current Level Of Functioning: Eating, setup assistance; oral hygiene as well setup assistance; toile ting, moderate assistance; showering, upper body dressing, lower body dressing and donning and doffin g footwear, all moderate assistance. Rolling [id number], sit to lying, and lying to sitting on th e side of the bed, moderate assistance. For [id number] and transfer from bed to chair to a toilet moderate assistance. Ambulation with a rolling walker for 10 feet and mobilizing a wheelchair 10 fee t, moderate assistance. Rehab And Medical Assessment And Plan: Ms. Cuadra is an 79-year-old patient in the rehabilitation unit with impairment category 01, stroke. Impairment group code 01.1 left body involvement, right brain. Etiologic diagnosis, prior stroke. Her comorbidities are decreased mobility, decreased physical func tioning, multiple falls, hypertension, restless legs syndrome, dyslipidemia, postherpetic neuralgia, peripheral neuropathy. Plan: 1.She will have physical, occupational, and speech therapy 3.5 hours, 5 of 7 days. 2.Fall precautions to be adhered to at all times as is with gait belt and therapist following behind with a wheelchair as she mobilizes with a walker. We will continue Coumadin for fibrillation, targe t INR between 2 and 3. Continue Senokot for constipation, Mirapex for restless legs. For depression , Paxil; Mobic will be continued for arthritic-type pain, HydroDIURIL also used for managing her flui d level, vitamin D for vitamin D deficiency, Lipitor for dyslipidemia, vitamin C for immune dysfuncti on, and Tylenol Extra Strength 500 mg for the pain rated [id number]. Comorbidities That Are Impacting Rehabilitation: Of course, she has had a stroke with sequelae of si gnificant falls and potentially is at risk for injury including broken bones. She will have fall pre cautions adhered to at all times. She does have a risk of DVT and stroke and is on Coumadin that put s her at risk of bleeding especially noncompressible site, so again fall precautions strictly adhered to. Rehab Specific Plan: She will have physical, occupational, and speech therapy 3.5 hours, 5/7 days to improve her ability to transfer from bed, to chair, to toilet, to shower, to perform toileting and s howering, dressing upper and lower body. Mobilizing with a walker and wheelchair covering more than household distances; distance may be 250 feet up and down 10 steps with bilateral handrails and to pe rform her cognitive functioning independently including her good judgment in terms of safety awarenes s and avoiding pitfalls that may lead to additional falls, to manage medications, and communicate her condition with her caregivers. Ms. Cuadra has a good understanding of the process of admission to inpatient rehabilitation facility, h ow she will benefit from physical, occupational, and speech therapy. She will have 24 hours a day, 7 days a week, skilled rehabilitation nursing, daily physician evaluation and management, and social s ervice evaluation and management. If need be, additional help from the hospitalist service may be co nsulted. Prior to discharge, again she has a high risk of falls and has had multiple falls and may require a f acility perhaps such as a Memory Care Unit, where she could be very closely monitored, so she can red uce risk of falling. Otherwise, she does have by a blood thinner, Coumadin, and again puts her at hi gh risk of complications, especially with such a history of falling and while she is anticoagulated. Therefore, in strict precautions adhered to and that she may require a facility that has 24-hour car e and supervision. Length Of Stay: About 12 days. Disposition: Back to her assisted with Physical therapy, Occupational, and Speech therapy jewel dia. Prognosis: Good. Rehab Specific Goals: 1.Become independent with upper and lower body dressing and donning and doffing of footwear. 2.Independently transfer from bed to chair to toilet. 3.Independently ambulate 250 feet with a rolling walker and mobilizing wheelchair 250 feet. 4.One up and down 10 steps with bilateral handrails to be independently. 5.As independently as possible, make good final decisions in terms of cognition and safety awareness and communication. The above goals were reviewed with Ms. Cuadra and she is in agreement. By signing this document, I acknowledge I personally performed a full physical examination on Ms. Wilver huang no later than 24 hours after her admission to the inpatient rehabilitation facility and determined that she is able to tolerate the above course of treatment at an intensive level for a reasonable per iod of time. A detailed individualized plan of care for her will be completed by hospital day 4 base d on the preadmission screen, history and physical, and therapy evaluations. ANASTACIO Voice ID: [id number]
[2024-07-14 05:58] LABS: PT Prothrombin Time 34.7 SECONDS (9.4-12.5); Protime INR 3.21
[2024-07-14] MEDS: AREDS2 PO SCH (08:00)
[2024-07-14] MEDS: MELOXICAM 7.5 MG TAB PO SCH (09:25)
[2024-07-14] MEDS: ASCORBIC ACID 500 MG TABLET PO SCH (09:25)
[2024-07-14] MEDS: VITAMIN D 1000 UNIT TAB PO SCH (09:25)
[2024-07-14] MEDS: PARoxetine HCL 10 MG TAB PO SCH (09:25)
[2024-07-14] MEDS: MAGNESIUM OXIDE 400 MG TAB PO SCH (09:25)
[2024-07-14] MEDS: POTASSIUM CL SA 10 MEQ TAB PO ONE (09:25)
[2024-07-14] MEDS: hydroCHLOROthiazide 25 MG TAB PO SCH (09:26)
[2024-07-14] MEDS ORDERED: WARFARIN SODIUM 2 MG TAB PO SCH (17:00)
[2024-07-14] MEDS: WARFARIN SODIUM 2 MG TAB PO SCH (17:00)
[2024-07-15 06:05] LABS: PT Prothrombin Time 33.5 SECONDS (9.4-12.5); Protime INR 3.09
[2024-07-15] MEDS: ZINC SULFATE 220 MG CAP PO SCH (09:10)
[2024-07-15] MEDS: POTASSIUM CL SA 10 MEQ TAB PO SCH (09:12)
[2024-07-15] MEDS: WARFARIN SODIUM 4 MG TAB PO SCH (17:01)
[2024-07-15] MEDS ORDERED: APPL TOP PRN (18:46)
[2024-07-15] MEDS ORDERED: DIPHEN TOP PRN (18:46)
[2024-07-15] MEDS ORDERED: ZINC TOP PRN (18:46)
[2024-07-16 06:55] LABS: PT Prothrombin Time 25.8 SECONDS (9.4-12.5); Protime INR 2.36
[2024-07-16] MEDS: hydroCHLOROthiazide 25 MG TAB PO SCH (09:05)
--- NOTE | 2024-07-16 23:45 | PN ---
Date of Progress Note: 07/16/2024 Time Of Service: 1:15 p.m. Subjective: Ms. Cuadra is resting comfortably in her room. She is doing very well so far, happy with therapy. She is awake working with the speech pathologist. No new complaints. Objective: No fevers, chills, nausea, vomiting. No significant myalgias, arthralgias. Does report some improving strength in the left upper extremity, left lower extremity also somewhat improving, bu t still significantly weak. Physical Examination: Vital Signs: Blood pressure is 123/58, pulse 68, respiratory rate 16, temperature 97.9, oxygen satur ation 93%. Weight 148 pounds, height 5 feet 3 inches, BMI 26.2. General: Ms. Cuadra is resting comfortably. She is in no acute distress. HEENT: She appears normocephalic, atraumatic. Sclerae anicteric. Oropharynx moist. Neck: Supple. Chest: Clear. Heart: Regular. Extremities: No significant edema, cyanosis, or clubbing. She has left-sided lower more than upper extremity weakness, but is improving. Decreased sensation in left compared to the right side. Laboratory Studies: White blood cell count is 7, hemoglobin 12.5, hematocrit 38.5, platelets 274. H er INR today is 2.36, yesterday was 3.09, and the day before 3.21. Sodium 140, potassium 3.2, chlori de 105, carbon dioxide 32, BUN 26, creatinine 1.05, glucose 97, calcium 10.3, magnesium 1.8, albumin 3.5, prealbumin 16.4. Her urinalysis did show 500 esterase, white blood cell count 20 to 50, red blo od cells 5 to 10, extreme turbidity, occasional budding yeast. Her urine cultures did grow greater t ng 100,000 colony-forming units of E. coli that was sensitive to Bactrim and nitrofurantoin, but res istant to Levaquin, Rocephin, piperacillin and tazobactam, and ciprofloxacin, and sensitive to merope nem. Currently, the patient does not have any symptoms of urinary tract infection. She does have on board cranberry extract and will have hydration and is well monitored. Medications: Tylenol Extra Strength 500 mg every 6 hours as needed, vitamin C 500 mg daily, Lipitor 40 mg at bedtime, vitamin D 2000 units daily, magnesium oxide 400 mg daily, HydroDIURIL 12.5 mg daily , melatonin 3 mg at bedtime, Mobic 7.5 mg daily, Zofran 4 mg every 4 hours as needed, Paxil 10 mg maren ly, potassium 10 mEq daily, Mirapex 0.75 mg twice daily, Senokot-S 2 at bedtime, tramadol 50 mg every 6 hours as needed, she has Coumadin 4 mg on Tuesday, Tuesday, Tuesday, Tuesday, Coumadin 2 mg on , , Tuesday, and zinc sulfate 220 mg daily. Progress Made With Physical And Occupational Therapy: Today with physical therapy, she did wheelchai r mobilization covering 250 feet with bilateral upper extremities with contact guard to minimum mary tance. Ylk-eo-ltnoy done with moderate to maximum assistance. Now she mobilized a wheelchair anothe r 55 feet, rolling walker another 25 and 40 feet with minimum assistance. With her speech, she demon strated delay recall of 3 of 3 unrelated pictures after 3 minutes. On second attempt also, recalled 3 of 3 pictures after 6 minutes. She did recall 2 of 3 pictures after 11 minutes. Organizational th inking skills demonstrated through convergent naming with 100% accuracy without cues and using diverg ent naming with 80% accuracy with minimum assistance. Assessment: Ms. 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 She has more lower extremity than upper extremity w eakness, but still significant weakness present there. She has hypertension, restless legs syndrome, dyslipidemia, postherpetic neuralgia, peripheral neuropathy, multiple falls, decreased mobility, and decreased physical functioning. Plan: 1.She will continue with physical, occupational, and speech therapy for 3.5 hours, 5 of 7 days. 2.Continue with Mirapex for restless legs. 3.Continue with tramadol for pain. 4.Continue with Senokot for constipation. 5.Continue with Coumadin alternating as noted 4 mg on Tuesday, Tuesday, Tuesday, Tuesday and 2 mg on Tuesday, , Tuesday. Continue with zinc sulfate for immune system support, vitamin C as well for diet, Lipitor for dyslipidemia, vitamin D again for immune system functioning. LB/MODL Voice ID: [id number] Report ID: [id number]
[2024-07-17 07:04] LABS: PT Prothrombin Time 27.4 SECONDS (9.4-12.5); Protime INR 2.51
[2024-07-17 07:09] LABS: Anion Gap 5.6 mEq/L (5.0-15.0); Potassium 3.6 mEq/L (3.5-5.1)
[2024-07-17] MEDS: WARFARIN SODIUM 2 MG TAB PO SCH (17:15)
[2024-07-17] MEDS: CYANOCOBALAMIN 1000MCG/ML INJ SQ SCH (19:39)
[2024-07-17] MEDS: SMZ./TMP. 800/160 MG TABLET PO SCH (19:42)
[2024-07-17] MEDS: ENSURE ENLIVE 237 ML CAN PO SCH (19:43)
[2024-07-18 07:17] LABS: PT Prothrombin Time 31.6 SECONDS (9.4-12.5); Protime INR 2.91
[2024-07-18] MEDS: SMZ./TMP. 800/160 MG TABLET PO SCH (20:16)
--- NOTE | 2024-07-19 01:02 | PN ---
Date of Progress Note: 07/18/2024 Time Of Service: 1:20 p.m. Subjective: Ms. Cuadra is resting comfortably in her room. She is very happy so far and she is recove ring well from her deficits related to stroke. She has no new complaints. Objective: No fevers, chills. No nausea, vomiting, myalgias, arthralgias, rash. Physical Examination: Vital Signs: Blood pressure range 99 to 126 over 53 to 61, pulse around mid 70s, respiratory rate 16 , temperature 98.1, oxygen saturation 95%. General: Again, Ms. Cuadra is resting comfortably, in no significant distress. HEENT: She is normocephalic, atraumatic. Sclerae anicteric. Oropharynx pink, moist. Neck: Supple. Chest: Clear. Neuro: She does have rightward deviated scoliosis. Laboratory Studies: Sodium 137, potassium 3.6, chloride 104, carbon dioxide 31, BUN 26, creatinine 1 .2, calcium 10.2, glucose 96. X-ray/imaging: No new x-rays or imaging. Note: The patient did become asymptomatic for urinary tract infection with increased urgency, freque ncy. Her urine cultures did grow E. coli greater than 100,000 colony-forming units. The bacteria ar e sensitive to Bactrim, nitrofurantoin, gentamicin, Rocephin, cefepime, and meropenem. She was put o n Bactrim Double Strength twice daily for 5 days. Progress Made With Physical, Occupational, And Speech Therapy: With physical therapy today, she comp leted gait training 107 feet with a rolling walker with contact guard to minimum assistance. She did stair management 3 steps up and down with rest break. She did multiple ode-mz-wmoau transfers with contact guard assistance. Completed wheelchair mobilization 250 feet with contact guard assistance. With occupational therapy, contact guard assistance for xnh-ip-udsue transfers, minimum assistance f or bathing and washing feet. With speech, used semantic feature analysis for an occasional category members with 100% accuracy and maximum assistance. Short-term memory continues to be of no significa nt deficits. Assessment: Ms. Cuadra is an 79-year-old patient in rehabilitation unit with sequelae of stroke. She is recovering well. She still has cognitive deficits as noted by Speech Pathology. Otherwise, her t ransfers and mobilization are improving. Her stroke affects the right brain and produce left body we akness. She has decreased mobilization, decreased physical functioning, hypertension, restless legs syndrome, dyslipidemia, postherpetic neuralgia, peripheral neuropathy, multiple falls. Plan: 1.She will continue with physical, occupational, and speech therapy for 3.5 hours, 5 of 7 days. 2.She has number of medications to be continued including Coumadin with a target INR 2.5 to 3.5 and that is doing well. She has Senokot for constipation, tramadol for pain, Mirapex for restless legs s yndrome. Note, today her INR is 2.91, yesterday 2.51. RADHA/NELIDA Voice ID: [id number] Report ID: [id number]
[2024-07-19 06:39] LABS: Absolute Basophils 0.1 K/uL (0-0.5); Absolute Eosinophils 0.1 K/uL (0-0.5); Absolute Lymphocytes (CBC) 1.9 K/uL (0.7-4.9); Absolute Monocytes 0.8 K/uL (0.1-1.3); Absolute Neutrophil 4.6 K/uL (1.8-8.0); Basophils % 0.7 % (0-1.3); Eosinophils % 1.7 % (0-4.4); Hemoglobin 11.7 g/dL (12.0-15.0); Lymphocytes % 25.8 % (15.3-44.8); MCH 33.6 pg (27.0-35.0); MCHC 34.4 g/dL (32.0-36.0); MCV 97.9 fL (80-100); MPV 8.2 fL (7.6-11.3); Monocytes % 11.1 % (3.3-12.3); Neutrophils % 60.7 % (41.7-73.7); Nucleated Red Blood Cells % 0.2 % (0-0); Platelets 253 thou/uL (152-406); RBC Red Blood Cell Count 3.47 M/uL (3.86-4.86)
[2024-07-19 06:42] LABS: PT Prothrombin Time 37.8 SECONDS (9.4-12.5); Protime INR 3.5
[2024-07-19 06:56] LABS: Anion Gap 6.8 mEq/L (5.0-15.0); Magnesium 2.1 mg/dL (1.6-2.4); Potassium 4.8 mEq/L (3.5-5.1); Prealbumin 14.2 mg/dL (20-40)
[2024-07-19] MEDS: hydroCHLOROthiazide 12.5 MG CAP PO SCH (08:15)
--- NOTE | 2024-07-20 00:20 | PN ---
Date of Progress Note: 07/19/2024 Time Of Service: 1:25 Subjective: Ms. Cuadra is resting comfortably, in between therapy sessions, in her room. She just amb ulates around the unit. She does report some leg and back pain, and she has a moderate scoliosis, le aning to the right side. Objective: Mild myalgias and arthralgias. No rash, headache, weight change. No other issues. Physical Examination: Vital Signs: Blood pressure is 119/58, pulse 78, respiratory rate 18, temperature is 97, oxygen satu ration 92%. General: Ms. Cuadra is sitting in a chair. She is not in any significant pain. She has jrni-lr-kheuc ate pain. HEENT: She is normocephalic, atraumatic. Sclerae anicteric. Scoliosis is present. She otherwise is doing very well. No new or unexpected findings. Laboratory Studies: White blood cell count , hemoglobin 11.7, platelets 253. Her INR toda y is 3.5. Sodium 140, potassium X-ray/imaging: No new x-rays or imaging. Medications: The medications have been reviewed. She is now on hydrochlorothiazide 12.5 mg twice da patricia that is decreased as she is slightly over diuresed. She is still on Ensure and all of her ____ twice daily for urinary tract infection, and she is going from 07/18 to 07/22. Her Coumadin of c ourse on board for fibrillation. Progress Made With Physical, Occupational, And Speech Therapy: With physical therapy today, she did multiple oezms-pr-qsqqc transfers with contact guard assistance. She ambulated 50 feet twice and 75 feet with contact guard assistance using a rolling walker. Emphasis was placed on upright posture fo r her stability. She did a wheelchair mobilization of 125 feet with minimum assistance, and then ano ther wheelchair mobilization of 125 feet independently. With speech, demonstrated wincing ability wi th 4 units of information with 80% accuracy, minimum assistance. She recalled 3 of 3 unrelated words after 5 minutes. Assessment: Ms. Cuadra is an 79-year-old patient, admitted to the rehabilitation unit with sequelae of stroke, from which she is recovering well. She has decreased mobility, decreased physical functioni ng, and of course hypertension, restless legs syndrome, dyslipidemia, post-herpetic neuralgia, periph eral neuropathy. Plan: She will continue with physical, occupational, and speech therapy for 3.5 hours, 5 of 7 days. She has multiple medications including the Coumadin for DVT prophylaxis and to reduce risk of stroke . She has Senokot for constipation, tramadol for pain, Mirapex for restless legs syndrome. RADHA/NELIDA Voice ID: [id number] Report ID: [id number]
[2024-07-20 06:12] LABS: PT Prothrombin Time 38.3 SECONDS (9.4-12.5); Protime INR 3.55
[2024-07-20] MEDS: ONDANSETRON 4 MG (ODT) TAB PO PRN (11:13)
--- NOTE | 2024-07-20 13:38 | P.RH.PN ---
Estimated Length of Stay: 13 Expected Discharge Date: 07/25/24 Discharge Disposition Plan: Home Family Support: Yes Senior Care Goal: Mobility, Transfers, Self Care Vital Signs: Last Vital Signs Temp 97.8 F 07/20/24 08:00 Pulse 78 07/20/24 09:44 Resp 16 07/20/24 08:00 BP 123/51 L 07/20/24 09:44 Pulse Ox 100 07/20/24 08:00 Laboratory: Laboratory Last Values WBC 7.50 thou/uL (4.3-10.9) 07/19/24 05:21 RBC 3.47 M/uL (3.86-4.86) L 07/19/24 05:21 Hgb 11.7 g/dL (12.0-15.0) L 07/19/24 05:21 Hct 34.0 % (36.0-45.0) L 07/19/24 05:21 MCV 97.9 fL (80-100) 07/19/24 05:21 MCH 33.6 pg (27.0-35.0) 07/19/24 05:21 MCHC 34.4 g/dL (32.0-36.0) 07/19/24 05:21 RDW 13.0 % (12.1-15.2) 07/19/24 05:21 Plt Count 253 thou/uL (152-406) 07/19/24 05:21 MPV 8.2 fL (7.6-11.3) 07/19/24 05:21 Neutrophils % 60.7 % (41.7-73.7) 07/19/24 05:21 Lymphocytes % 25.8 % (15.3-44.8) 07/19/24 05:21 Monocytes % 11.1 % (3.3-12.3) 07/19/24 05:21 Eosinophils % 1.7 % (0-4.4) 07/19/24 05:21 Basophils % 0.7 % (0-1.3) 07/19/24 05:21 Absolute Neutrophils 4.6 K/uL (1.8-8.0) 07/19/24 05:21 Absolute Lymphocytes 1.9 K/uL (0.7-4.9) 07/19/24 05:21 Absolute Monocytes 0.8 K/uL (0.1-1.3) 07/19/24 05:21 Absolute Eosinophils 0.1 K/uL (0-0.5) 07/19/24 05:21 Absolute Basophils 0.1 K/uL (0-0.5) 07/19/24 05:21 PT 38.3 SECONDS (9.4-12.5) H 07/20/24 05:09 INR 3.55 07/20/24 05:09 Sodium 140 mEq/L (136-145) 07/19/24 05:21 Potassium 4.8 mEq/L (3.5-5.1) 07/19/24 05:21 Chloride 108 mEq/L (98-107) H 07/19/24 05:21 Carbon Dioxide 30 mEq/L (21-32) 07/19/24 05:21 Anion Gap 6.8 mEq/L (5.0-15.0) 07/19/24 05:21 BUN 33 mg/dL (7-18) H 07/19/24 05:21 Creatinine 1.40 mg/dL (0.55-1.02) H 07/19/24 05:21 Est GFR (CKD-EPI) 38 ml/min (=/>90) L 07/19/24 05:21 Glucose 96 mg/dL (74-106) 07/19/24 05:21 Calcium 10.5 mg/dL (8.5-10.1) H 07/19/24 05:21 Magnesium 2.1 mg/dL (1.6-2.4) 07/19/24 05:21 Albumin 3.0 g/dL (3.4-5.0) L 07/19/24 05:21 Prealbumin 14.2 mg/dL (20-40) L 07/19/24 05:21 Urine Color Yellow (Yellow) 07/13/24 10:30 Urine Clarity Extremely turbid (Clear) H 07/13/24 10:30 Urine pH 5.5 (5.0-7.0) 07/13/24 10:30 Ur Specific [place] 1.021 (1.005-1.030) 07/13/24 10:30 Glucose (UA)(Auto) Negative (Negative) 07/13/24 10:30 Urine Ketones Negative (Negative) 07/13/24 10:30 Urine Blood Negative (Negative) 07/13/24 10:30 Urine Nitrite Negative (Negative) 07/13/24 10:30 Urine Bilirubin Negative (Negative) 07/13/24 10:30 Urine Urobilinogen Normal (Normal) 07/13/24 10:30 Ur Leukocyte Esterase 500 Romaine/uL (Negative) H 07/13/24 10:30 Urine RBC 5-10 /HPF (None Seen) H 07/13/24 10:30 Urine WBC 20-50 /HPF (<5) H 07/13/24 10:30 Urine WBC Clumps Rare /HPF (None Seen) 07/13/24 10:30 Ur Squamous Epith Cells 5-10 /HPF (None Seen) 07/13/24 10:30 Unidentified Crystals Few /HPF (None Seen) 07/13/24 10:30 Urine Bacteria <20 /HPF (<20) 07/13/24 10:30 Hyaline Casts 0-5 /LPF (None Seen) 07/13/24 10:30 Urine Mucus Slight /HPF (None Seen) 07/13/24 10:30 Urine Yeast (Budding) Occasional /HPF (None Seen) H 07/13/24 10:30 Urine Culture Reflexed Reflexed 07/13/24 10:30 Urine Total Protein Trace (Negative) H 07/13/24 10:30 Weight: 148 lb Wound Present: No Closed Surgical Incision Present: No Negative Pressure Wound Therapy Present: No Physician Update: Blood work reviewed and are stable. BIMS 14. Making fair progress with recovery with balance and coordination. SLUMS 15, moderate cognitive deficits. Improved delayed recall, problem solving. Transfers CGA, 250 with WC, 130' with RW. She met 2/6 STG, min assist with upper body dressing. Summary: Patient's care plan and terminal make up operator goals have been reviewed and revised as necessary. Please see the Rehabilitation Signature page for all necessary signatures.
[2024-07-20] MEDS: NA CHLORIDE 0.9% 1,000 ML IV SCH ×2 (14:00→23:43)
[2024-07-21] MEDS: TRAMADOL HCL 50 MG TAB PO PRN (09:01)
[2024-07-21] MEDS: FLU (Fluarix Triv) TS24-25(6MOS UP)/PF 45 MCG/0.5 ML Syringe IM ONE (15:55)
[2024-07-22 05:57] LABS: PT Prothrombin Time 27.5 SECONDS (9.4-12.5); Protime INR 2.52
[2024-07-22] MEDS ORDERED: OCUVITE (VIT A,C & E/LUTEIN/MINERAL) TABLET PO SCH ×2 (12:00)
[2024-07-23 06:44] LABS: PT Prothrombin Time 18.8 SECONDS (9.4-12.5); Protime INR 1.7
[2024-07-23 15:22] LABS: Absolute Eosinophils 0.1 K/uL (0-0.5); Absolute Lymphocytes (CBC) 1.6 K/uL (0.7-4.9); Absolute Monocytes 0.6 K/uL (0.1-1.3); Absolute Neutrophil 3.4 K/uL (1.8-8.0); Basophils % 0.6 % (0-1.3); Eosinophils % 1.3 % (0-4.4); Hematocrit 34.6 % (36.0-45.0); Hemoglobin 11.4 g/dL (12.0-15.0); Lymphocytes % 28.4 % (15.3-44.8); MCH 32.7 pg (27.0-35.0); MCHC 32.9 g/dL (32.0-36.0); MCV 99.3 fL (80-100); MPV 7.4 fL (7.6-11.3); Monocytes % 10.3 % (3.3-12.3); Neutrophils % 59.4 % (41.7-73.7); Nucleated Red Blood Cells % 0.1 % (0-0); Platelets 277 thou/uL (152-406); RBC Red Blood Cell Count 3.49 M/uL (3.86-4.86)
[2024-07-23 15:34] LABS: Anion Gap 8.7 mEq/L (5.0-15.0); Potassium 4.7 mEq/L (3.5-5.1)
--- NOTE | 2024-07-24 01:44 | PN ---
Date of Progress Note: 07/23/2024 Time Of Service: 1:25 p.m. Subjective: Ms. Cuadra is resting in the room, doing well. She is happy and ready to be discharged ho az in the morning. She said she has made good progress. Of course, need to continue therapy. Objective: Mild myalgias, arthralgias. No rash. No headache. No other complaints. Physical Examination: Vital Signs: Blood pressure 119/59, pulse 72, respiratory rate 16, temperature 97.8, oxygen saturati on 96%. General: Ms. Cuadra is sitting in a chair. She has mild scoliosis. HEENT: She is otherwise normocephalic, atraumatic. Sclerae anicteric. Extremities: She does have diffuse weakness in the lower and upper extremities, but is improving wel l with therapy. Laboratory Studies: White blood cell count 5.7, hemoglobin 11.4, platelets 277. Her INR today is 1. 70. Sodium 136, potassium 4.7, chloride 104, carbon dioxide 28, BUN 31, creatinine 1.47, glucose 97, calcium 10.3. X-ray/imaging: No new x-rays or imaging. Medications: She did have a liter of normal saline given the slight dehydration by her increased cre atinine. She has still on board hydrochlorothiazide, Lipitor, vitamin C, Extra Strength Tylenol, zuri atonin, magnesium oxide, Mobic, Ensure Enlive, Paxil, potassium, Mirapex, Senokot, Ultram, and of cou rse Coumadin and zinc sulfate. Progress Made With Physical, Occupational, And Speech Therapy: Today with physical therapy, she ambu lated 150 feet with contact guard assistance using a rolling walker. She mobilized wheelchair 250 fe et twice, another 100 feet with modified independence. She was able to manage 5 steps with minimum a ssistance. With occupational therapy, standby assistance for toilet and shower transfer using grab b ars. Did require assistance with transfers and ADLs. She is safe to discharge home and continue the rapy via home health. With speech, she did decline slightly on the BIMS from 14 to 13, but increased her SLUMS from 15 to 16. She appears to have returned to her baseline for speech pathology and did not recommend continued speech therapy at home. Assessment And Plan: Ms. Cuadra is an 79-year-old patient admitted to rehabilitation unit with sequela e of stroke from which she is recovering well. She still has comorbid decreased mobility; decreased physical functioning; hypertension; some mild dehydration; restless legs syndrome; constipation; fibr illation, on Coumadin; dyslipidemia, on Lipitor. Magnesium oxide for muscle spasms. She has Paxil f or depression, Senokot for constipation. She will be discharged in the morning and follow up with the primary care physician. She will continue therapy via home health. Medications will be sent off as well. ANASTACIO Voice ID: [id number] Report ID: [id number]
[2024-07-24 05:43] LABS: PT Prothrombin Time 19.5 SECONDS (9.4-12.5); Protime INR 1.77
[2024-07-24 10:12] LABS: Specific Gravity 1.014 (1.005-1.030); Sqamous Epithelial <5 /HPF (None Seen); Urine Bacteria 20-50 /HPF (<20); Urine Bilirubin NEGATIVE (Negative); Urine Blood Negative (Negative); Urine Clarity Extremely Turbid (Clear); Urine Color Light-Yellow (Yellow); Urine Culture Reflex Order REFLEXED; Urine Glucose NEGATIVE (Negative); Urine Ketones NEGATIVE (Negative); Urine Microscopic Reflex YN ORDER UMIC; Urine Nitrite 2+ (Negative); Urine Protein NEGATIVE (Negative); Urine RBC <5 /HPF (None Seen); Urine Urobilinogen Normal (Normal); Urine WBC >50 /HPF (<5)
[2024-07-24] MEDS: CEFTRIAXONE 1,000 MG in NA CHLORIDE 0.9% 50 ML IVPB SCH (15:18)
[2024-07-24] MEDS: WARFARIN SODIUM 2 MG TAB PO SCH (17:32)
--- NOTE | 2024-07-25 02:26 | PN ---
Date of Progress Note: 07/24/2024 Time Of Service: 1:25 a.m. Subjective: Ms. Cuadra was to be discharged today. However, earlier today she had increased urinary f requency, urgency, and some dysuria. Nursing staff indicated that the patient was actually wiping fr om back to front and had loose stools without her recognition. The urine did look contaminated and t he urine sample was taken. The samples show extreme turbidity, 2+ nitrite, 500 esterase, greater leonora n 50 white blood cells, and 20 to 30 bacteria consistent with urinary tract infection. Cultures are pending. It is noted that earlier on 07/13/2024, urinalysis did grow E coli and she was treated for that with Bactrim DS for 5 days. However, that is 11 days ago. Objective: Again, some urinary urgency, frequency and mild dysuria. Otherwise, no other positives o n review of systems. Physical Examination: Vital Signs: Blood pressure 114/51, pulse 83, respiratory rate 18, temperature 97.9, oxygen saturati on 100%. General: Ms. Cuadra is resting comfortably in a chair. She is in no significant distress. HEENT: Normocephalic, atraumatic. Sclerae anicteric. Oropharynx pink and moist. Neck: Supple. Chest: Clear. Laboratory Studies: As noted. Urinalysis as mentioned. Today, INR 1.77. X-ray/imaging: No new x-rays or imaging. Progress Made With Physical, Occupational, And Speech Therapy: With her extended today with physical therapy today, she did multiple hom-mb-fueah transfers with standby assistance supervision, supine s it transfers done with modified independence. She ambulated 133 feet with close supervision and helder fied independence. She mobilized wheelchair 250 feet with modified independence. Regarding her occu pational therapy, contact guard assistance for cun-id-fpwhr transfers, standby assistance for wheelch air to edge of bed transfers with a rolling walker. Assessment: Ms. Cuadra is an 79-year-old patient in rehabilitation unit with sequelae of stroke from [facility] she has recovered very well. However, she was to be discharged today, but that put on hold as s he has now symptoms of urinary tract infection and urinalysis also consistent with urinary tract infe ction. She will be given a g of Rocephin now and another tomorrow and will have urine cultures follo wed. She will likely have to continue some oral antibiotics and follow up with her primary care brody lieberman after discharge. Her comorbid conditions to include decreased mobility, decreased physical fun ctioning, managed with her physical therapy. Continue with the Paxil for depression, potassium for r eplacement, Coumadin for stroke risk reduction with target INR 2.5 to 3.5. Senokot S continue for co nstipation, pramipexole for restless legs symptoms, Lipitor for dyslipidemia, and Tylenol for pain. Again, the plan is for her to discharge home once she has improved symptomatic urinary tract infectio n. RADHA/NELIDA Voice ID: [id number] Report ID: [id number]
[2024-07-25] MEDS ORDERED: NA CHLORIDE 0.9% 250 ML ONE (06:49)
[2024-07-25 07:33] LABS: PT Prothrombin Time 20.9 SECONDS (9.4-12.5); Protime INR 1.9
[2024-07-25] MEDS ORDERED: CEFTRIAXONE 1,000 MG in NA CHLORIDE 0.9% 50 ML IVPB SCH (08:00)
--- NOTE | 2024-07-25 22:19 | PN ---
Date of Progress Note: 07/25/2024 Time Of Service: 1:20 p.m. Subjective: Ms. Cuadra is mobilizing around the unit. She is actually walking, has a very stooped pos ture while holding onto the rolling walker. Therapist in tow with a wheelchair, and her is a ctually the pushing the wheelchair. She does report some fatigue and again she did walk a lot more t lorena than she did a few days ago. She says in terms of the frequency and urgency in urination, sligh tly improved after receiving a gram of Rocephin, she will have that twice daily. Objective: Otherwise in terms of objective, mild myalgias, arthralgias. No rash. No headache. No psychiatric complaints. Still has some increase in frequency. Physical Examination: Vital Signs: Blood pressure 119/59, pulse 69, respiratory rate 16, temperature 97.4, oxygen saturati on 96%. General: Ms. Cuadra is ambulating down the hallway. She has very kyphotic posture. HEENT: She is otherwise normocephalic, atraumatic. Sclerae anicteric. Oropharynx moist. Neck: Supple. Chest: She does have a decreased amount of air movement. Abdomen: Soft. Extremities: Show trace edema. Laboratory Studies: Today, INR 1.9. X-ray/imaging: No new x-rays or imaging. Her cultures from the urine did grow greater than 100,000 colony-forming units and the bacteria is 4+ gram-negative rods with mixed maddi awaiting on sensitivi ties. Progress Made With Physical And Occupational Therapy: With physical therapy today, she ambulated 150 feet and 90 feet with standby assistance using a rolling walker. Propelled a wheelchair 250 feet in dependently. She was up and down 5 steps with minimum assistance. Bed mobility, supervision to helder fied independence. Qzzqz-ii-uqflw transfer with supervision to standby independence. With occupatio nal therapy, independent with upper and lower body dressing, donning and doffing shoes independent, p utting on and off her pants independent as well. Contact guard to standby assistance with sit-to-sta nd transfers, some verbal cues required. Regarding her speech, recalled and used memory strategies t o be able to successfully recall 4/4 unrelated words after 5 and 7-minute increments. Cause and effe ct relationships explained by the patient with 100% accuracy and minimum assistance. Assessment: Ms. Cuadra is an 79-year-old patient in the rehabilitation unit with sequelae of stroke. She is doing excellent with her physical, occupational, and speech therapy recovering very well. She has symptoms of urinary tract infection. She did receive Bactrim DS 5 days, but now there appears t o be some residual infection. 4+ gram-negative rods seen on cultures, but sensitivities are pending. She has decreased mobility, decreased physical functioning, significant kyphosis with very stooped posture while ambulating. She is on chronic Coumadin therapy. INR range targeted at 2.5 to 3.5. Sh ashely has dyslipidemia, depression, constipation. Plan: 1.She will continue with physical, occupational, and speech therapy for 3.5 hours, 5 of 7 days. 2.We will continue with her list of comorbid condition medications, which do include Coumadin, zinc sulfate, tramadol for pain, Senokot for constipation. She has pramipexole for restless leg symptoms, antidepressants on board, melatonin for insomnia, magnesium oxide for muscle spasms, hydrochlorothia zide for fluid management, Rocephin currently for the presumed urinary tract infection with cultures pending, Lipitor for dyslipidemia. The goal is to control the urinary symptoms and switch to oral an tibiotics prior to discharge and she will follow up with primary care physician and neurologist as sc heduled. RADHA/NELIDA Voice ID: [id number] Report ID: [id number]
[2024-07-26 05:27] LABS: Absolute Basophils 0.1 K/uL (0-0.5); Absolute Eosinophils 0.1 K/uL (0-0.5); Absolute Lymphocytes (CBC) 2.1 K/uL (0.7-4.9); Absolute Monocytes 0.5 K/uL (0.1-1.3); Absolute Neutrophil 2.7 K/uL (1.8-8.0); Basophils % 1.1 % (0-1.3); Eosinophils % 2.5 % (0-4.4); Hematocrit 34.1 % (36.0-45.0); Hemoglobin 11.1 g/dL (12.0-15.0); Lymphocytes % 37.5 % (15.3-44.8); MCHC 32.4 g/dL (32.0-36.0); MCV 98.9 fL (80-100); MPV 8.1 fL (7.6-11.3); Monocytes % 9.5 % (3.3-12.3); Neutrophils % 49.4 % (41.7-73.7); PT Prothrombin Time 20.7 SECONDS (9.4-12.5); Platelets 278 thou/uL (152-406); Protime INR 1.88; RBC Red Blood Cell Count 3.45 M/uL (3.86-4.86); Red Cell Distribution Width 13.2 % (12.1-15.2)
[2024-07-26 05:43] LABS: Albumin 3.1 g/dL (3.4-5.0); Magnesium 2.2 mg/dL (1.6-2.4); Prealbumin 13.6 mg/dL (20-40)
[2024-07-26] MEDS: WARFARIN SODIUM 2 MG TAB PO SCH (16:54)
[2024-07-26] MEDS: CIPROFLOXACIN HCL 500 MG TAB PO SCH (20:31)
--- NOTE | 2024-07-26 22:30 | PN ---
Date of Progress Note: 07/26/2024 Time Of Service: 1:25 p.m. Subjective: Ms. Cuadra is mobilizing around the unit. She is doing very well, very happy with therapy so far, and she is now on antibiotic treatment for urinary tract infection. Has no new complaints. Objective: No fevers, chills. Some improved urinary urgency and frequency. No significant myalgias , rash, or other complaints. Physical Examination: Vital Signs: Blood pressure 124/59, pulse 75, respiratory rate 16, temperature 97.4, oxygen saturati on 99%. General: Ms. Cuadra again is ambulating with a stooped posture. HEENT: She is otherwise normocephalic, atraumatic. Sclerae anicteric. Oropharynx is pink and moist . Extremities: No significant clubbing, cyanosis, or edema noted. Laboratory Studies: White blood cell count 5.5, hemoglobin 11.1, platelets 278. INR today 1.88. Sh ashely did get an extra dose of 2 additional mg of Coumadin to help her achieve a 2.5 to 3.5 range of INR. Sodium 136, potassium 4.0, chloride 104, carbon dioxide 28, BUN 30, creatinine 1.21, prealbumin 13. 6, albumin 3.1, magnesium 2.2, calcium 10.0, and note the urine cultures did grow E. coli sensitive t o ciprofloxacin and she is on ciprofloxacin 500 mg twice daily, we will continue 5 days. Progress Made With Physical, Occupational, And Speech Therapy: With physical therapy today, she did xcg-qv-mtkma and wlxok-ew-gxpot transfers with standby assistance. She mobilized a rolling walker 25 0 feet, 150 feet, and 60 feet with standby assistance. Mobilized a wheelchair 250 feet independently . Xyt-ap-xgpla and xcbtf-bk-jinak transfers done with supervision. With speech, she recalled 5/5 un related words after 3 minutes without cues. Cause and effect relationships demonstrated with 100% ac curacy. Four steps were sequenced to 80% accuracy and moderate assistance. With occupational therap y, required supervision and verbal cues to clean buttocks after bowel movement. She was independent with upper and lower body dressing and grooming, supervision for bathing, required extra time. Sit-t o-stand transfers done with standby assistance. Assessment: Ms. Cuadra is an 79-year-old patient in the rehabilitation unit with sequelae of stroke. She has decreased mobility, decreased physical functioning, urinary tract infection with E. coli, aga in sensitive to Cipro. She has fibrillation with Coumadin on board, target INR 2.5 to 3.5, dyslipide rico, depression, constipation also addressed. Plan: 1.She will continue with physical, occupational, and speech therapy as noted 3.5 hours, 5 of 7 days. 2.Continue with all comorbid condition medications including target INR as stated, Lipitor for dysli pidemia, ciprofloxacin for urinary tract infection. She does have plan for discharge in the morning and she will follow up with primary care physician and neurologist as scheduled. RADHA/NELIDA Voice ID: [id number] Report ID: [id number]
[2024-07-27 05:44] LABS: PT Prothrombin Time 23.2 SECONDS (9.4-12.5); Protime INR 2.12
[2024-07-27 07:33] VITALS: TEMP 97.6
[2024-07-27 09:01] VITALS: BP 121/57
[2024-07-31] MEDS ORDERED: WARFARIN SODIUM 2 MG TAB PO SCH (17:00)
== END 2024-07-27 11:10 | disposition home or self-care (01) | DRG 57 ==
LOC: 5TH 09:10
PROVIDERS: ADMIT Psychiatry & Neurology Neurology with Special Qualifications in Child Neurology; ATTEND Psychiatry & Neurology Neurology with Special Qualifications in Child Neurology
DX: I69.354 Hemiplegia and hemiparesis following cerebral infarction affecting left non-dominant side (principal); B02.29 Other postherpetic nervous system involvement; N39.0 Urinary tract infection, site not specified; G25.81 Restless legs syndrome; G62.9 Polyneuropathy, unspecified; I10 Essential (primary) hypertension; E78.5 Hyperlipidemia, unspecified; R26.81 Unsteadiness on feet; I48.91 Unspecified atrial fibrillation; K59.00 Constipation, unspecified; F32.A Depression, unspecified; B96.20 Unspecified Escherichia coli [E. coli] as the cause of diseases classified elsewhere; M40.209 Unspecified kyphosis, site unspecified; Z23 Encounter for immunization
CPT/HCPCS: 36415; 80048; 81001; 82040; 83735; 84134; 85025; 85610; 87077; 87086; 87088; 87186; 92523; 97110; 97112; 97116; 97129; 97162; 97165; 97530; 97542; J0696; J3420; J7030; J7050; Q0162

== ENCOUNTER 2024-08-26 11:45 | Emergency (ER) | payer OTHER, BC ==
--- OUTSIDE RECORDS SUMMARY | 2024-08-26 11:50 | XMS REPORT | Continuity of Care Document ---
Author Name Unknown Address [address] [facility] [place] [address] [facility] Address [address] 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 Attending Clinician [phone] KAYLEEN TONEY Attending Clinician UnaKAYLEEN Mirza Attending Clinician UnaGallo Conteh MD Attending Clinician [phone] Doctor Unassigned, [place] Attending Clinician U MILLER Perez Attending Clinician Unavailable Miller Machuca MD Attending Clinician [phone] Visit, [facility] Nurse Attending Clinician Unavailable JEFF LOW Attending Clinician Unavailable Jeff Low PA-C Attending Clinician [phone] Jack Gunn Rahil Attending Clinician Unavail able JOAO LENTZ Attending Clinician UnavailJoao Partida MD Attending Clinician [phone] Farhana Salazar DO Attending Clinician [phone] Jennifer Johnson RN Attending Clinician Unavailable NAVA GRAY Attending Clinician Unavailable Michael Kay MD Attending Clinician [phone] Nava Gray MD Attending Clinician [phone] Admitting Clinician Unavailable KAYLEEN TONEY Admitting Clinician Unav ailable MILLER MACHUCA Admitting Clinician Unavailable Jack Gunn Rahil Admitting Clinician Unavail able JOAO LENTZ Admitting Clinician UnavailNAVA Black Admitting Clinician Unavailable Marcella JIMÉNEZ, Nava Admitting Clinician [phone] Payers Payer Name Policy Type Policy Number Effective Date Expiration Date Source MEDICARE PART A \\T\\ B [id number] 2008 00:00:00 [employer] TRADITIONAL [id number] 2 2008 00:00:00 [employer] PPO 53 [id number] [facility] [id number] BCTI BCTI [id number] Problems Condition Name Condition Details Condition Category Status Onset Date Resolution Date Last Treatment Date Treating Clinician Comments Source History of arterial ischemic stroke History of arterial ischemic stroke Disease Active 12-02 00:00: 00 [facility] Primary hypertensi on Primary hypertensi on Disease Active 12-02 00:00: 00 [facility] PAF (paroxysma l atrial fibrillati on) PAF (paroxysma l atrial fibrillati on) Disease Active 12-02 00:00: 00 [facility] Anticoagul ant long-term use Anticoagul ant long-term use Disease Active 12-02 00:00: 00 [facility] Weakness of both lower extremitie s Weakness of both lower extremitie s Disease Active 11-15 00:00: 00 [facility] Weakness of both lower extremitie s Weakness of both lower extremitie s Disease Active 11-15 00:00: 00 [facility] Allergies, Adverse Reactions, Alerts Allergy Name Allergy Type Status Severity Reaction(s) Onset Date Inactive Date Treating Clinician Comments Source NO KNOWN ALLERGIE S Drug Class Active [facility] Social History Social Habit Start Date Stop Date Quantity Comments Source [facility] of Tobacco Use [facility] Sex Assigned At [facility] History of Social function 2024-05-24 00:00:00 2024-05-24 00:00:00 [facility] Exposure to SARS-CoV-2 (event) 2023-01-04 00:00:00 2023-01-14 11:19:00 Not sure [facility] Smoking Status Start Date Stop Date Source Never Smoker [facility] Tobacco smoking consumption unknown [facility] Medications Ordered Medication Name Filled Medication Name Start Date Stop Date Current Medication? Ordering Clinician Indication Dosage Frequency Signature (SIG) Comments Components Source warfarin 2 mg tablet 04-02 00:00: 00 Yes [id number] Take 1 tablet by mouth in the evening on Tuesday and [facility] warfarin 4 mg tablet 04-02 00:00: 00 Yes [id number] Take 1 tablet by mouth in the evening on Tuesday, Tuesday, Tuesday, Tuesday, and Tuesday [facility] warfarin 2 mg tablet -15 00:00: 00 04-02 00:00 :00 No [id number] Take 1 tablet by mouth in the evening on Tuesday and [facility] warfarin 4 mg tablet 02-22 00:00: 00 04-02 00:00 :00 No [id number] Take 1 tablet by mouth in the evening on Tuesday, Tuesday, Tuesday, Tuesday, and Tuesday [facility] warfarin 2 mg tablet 2022-09 0 00:00: 02-22 00:00 :00 No 2mg Take 1 tablet by mouth every Tuesday in the evening. [facility] warfarin 2 mg tablet 2022-1 0-02 00:00: 06-29 00:00 :00 No 2mg Take 1 tablet by mouth every Tuesday in the evening. [facility] warfarin 2 mg tablet 2022-0 8-26 00:00: 00 06-13 00:00 :00 No 2mg Take 1 tablet by mouth every Tuesday in the evening. [facility] warfarin 4 mg tablet 2022-0 5-11 00:00: 00 02-22 00:00 :00 No [id number] Take 4 mg x 6 days a week [facility] warfarin 5 mg tablet 2022-0 5-11 00:00: 00 05-02 00:00 :00 No [id number] Take 5 mg 1 day per week [facility] warfarin 5 mg tablet 2022-0 4-24 00:00: 00 01-20 00:00 :00 No [id number] 5mg Take 1 tablet by mouth every evening. Take 5 mg on 2 days of the week and 4 mg on the other 5 days [facility] warfarin 5 mg tablet 2022-0 4-14 00:00: 00 Yes [id number] 5mg Take 1 tablet by mouth every evening. 5 mg 3 days per week. 4 mg on 4 days per week [facility] warfarin 4 mg tablet 2022-0 4-14 00:00: 00 01-20 00:00 :00 No [id number] 4mg Take 1 tablet by mouth every evening. [facility] warfarin 5 mg tablet 3-0 3-14 00:00: 00 Yes [id number] 5mg Take 1 tablet by mouth every evening. 5 mg 3 days per week. 4 mg on 4 days per week [facility] warfarin 4 mg tablet 3-0 3-14 00:00: 00 Yes [id number] 4mg Take 1 tablet by mouth every evening. 4 mg on 4 days and 5 mg on 3 days per week [facility] warfarin 4 mg tablet 3-0 3-02 00:00: 00 11-23 00:00 :00 No [id number] 4mg Take 1 tablet by mouth every evening. [facility] warfarin 3 mg tablet 2- 00:00: 00 11-11 00:00 :00 No [id number] 3mg Take 1 tablet by mouth every evening. [facility] warfarin 1 mg tablet - 00:00: 00 11-02 00:00 :00 No [id number] 1mg Take 1 tablet by mouth every evening. [facility] warfarin 5 mg tablet 2021-09 00:00: 00 09-30 00:00 :00 No [id number] 5mg Take 1 tablet by mouth every evening. [facility] apixaban (ELIQUIS) 5 mg tablet 2021-09 00:00: 00 09-02 00:00 :00 No [id number] 5mg Take 1 tablet by mouth in the morning and 1 tablet in the evening. Indication s: prevention of thromboemb olism in paroxysmal atrial fibrillati on [facility] apixaban 5 mg tablet 2021-09 00:00: 00 08-19 00:00 :00 No [id number] 5mg Take 1 tablet by mouth in the morning and 1 tablet in the evening. Indication s: atrial fibrillati on [facility] apixaban 5 mg tablet 2021-09 00:00: 00 08-11 00:00 :00 No [id number] 5mg Take 1 tablet by mouth in the morning and 1 tablet in the evening. Indication s: atrial fibrillati on [facility] iopamidol (ISOVUE 370-500 mL) injection 100 mL 10-04 20:45: 00 10-04 19:20 :00 No [id number] 100mL 100 mL, Intravenou s, ONCE, 1 dose, On 10/04/21 at 1445, Routine [facility] proMETHazin e (PHENERGAN) 12.5 mg in NaCl 0.9% (NS) 50 mL IV piggyback 10-04 19:00: 00 10-04 19:00 :00 No 12.5mg 12.5 mg, IV Piggyback, ONCE, 1 dose, On 10/04/21 at 1300, [facility] meclizine (TRAVEL-EAS E (MECLIZINE) ) tablet 25 mg 10-04 19:00: 00 10-04 18:13 :00 No 25mg 25 mg, Oral, ONCE, 1 dose, On 10/04/21 at 1300, [facility] NaCl 0.9% (NS) bolus infusion 1,000 mL 10-04 19:00: 00 10-04 20:12 :00 No 1000mL at 999 mL/hr, 1,000 mL, IV Infusion, ONCE, 1 dose, On 10/04/21 at 1300, [facility] benzonatate 100 mg capsule 10-04 00:00: 00 Yes [id number] 100mg Take 1 capsule by mouth 3 (three) times daily as needed for Cough. [facility] meclizine 25 mg tablet 10-04 00:00: 00 Yes [id number] 25mg Take 1 tablet by mouth every 8 (eight) hours as needed for Dizziness. [facility] proMETHazin e 25 mg tablet 10-04 00:00: 00 Yes [id number] 25mg Take 1 tablet by mouth every 6 (six) hours as needed (dizziness and/or nausea). [facility] albuterol 90 mcg/actuati on inhaler 10-04 00:00: 00 Yes [id number] 2{puff} Inhale 2 Puffs every 4 (four) hours as needed for Wheezing or Shortness of Breath. [facility] tetanus-dip htheria toxoids (TENIVAC) 5-2 Lf unit/0.5 mL injection 0.5 mL 12-20 15:30: 00 12-20 16:05 :00 No .5mL 0.5 mL, Intramuscu lar, ONCE, 1 dose, 12/20/20 at 1030, Routine [facility] pramipexole di-HCl (MIRAPEX ORAL) 11-19 01:09: 27 Yes 1.5mg Take 1.5 mg by mouth. reports he gives 1/2 in the am and 1/2 pm. [facility] PARoxetine 10 mg tablet 11-19 01:09: 27 Yes 10mg Take 10 mg by mouth daily. [facility] atorvastati n 80 mg tablet 11-19 01:09: 27 Yes 80mg Take 80 mg by mouth at bedtime. [facility] pramipexole di-HCl (MIRAPEX ORAL) 11-18 19:09: 27 Yes 1.5mg Take 1.5 mg by mouth. reports he gives 1/2 in the am and 1/2 pm. [facility] PARoxetine 10 mg tablet 11-18 19:09: 27 Yes 10mg Take 1 tablet by mouth in the morning. [facility] atorvastati n 80 mg tablet 11-18 19:09: 27 Yes 80mg Take 1 tablet by mouth at bedtime. [facility] KCL (KLOR-CON M20) tablet 40 mEq 11-18 14:42: 00 11-18 14:59 :00 No 40meq 40 mEq, Oral, ONCE, 1 dose, 11/18/20 at 0845, Routine [facility] magnesium sulfate in water 2 gram/50 mL (4 %) infusion 2 g 11-18 14:42: 00 11-18 16:50 :00 No 2g 2 g, IV Piggyback, ONCE, 1 dose, 11/18/20 at 0845, JANUSZ [facility] clopidogreL (PLAVIX) 75 mg tablet 11-18 13:46: 27 11-18 00:00 :00 No 75mg Take 75 mg by mouth daily. [facility] doxycycline hyclate (Vibramycin ) capsule 100 mg 11-18 12:00: 00 11-22 11:59 :00 No 100mg 100 mg, Oral, Q12HA2, 8 doses, First dose on Tue11/18/20 at 0600, Last dose on Tue11/21/20 at 1800, JANUSZ
Re ason for Anti-Infec tive: Surgical Prophylaxi s
Surgi giuliana Prophylaxi s: Other (see Comments)< br>Duratio n of therapy: within 24 hours of surgery [facility] atorvastati n (LIPITOR) tablet 80 mg 11-18 03:00: 00 Yes 80mg 80 mg, Oral, QHS, First dose (after last reorder) on Tue11/17/20 at 2100, Until Discontinu ed, Routine [facility] lidocaine 1% (PF) (XYLOCAINE) injection 11-18 00:00: 03 11-18 00:00 :03 No Infiltrati on, TITRATE - FOR PROCEDURE USE, 1 dose, Starting Tue11/17/20 at 1800, Until Tue11/17/20 at 1800, Routine [facility] aspirin 81 mg chewable tablet 11-18 00:00: 00 12-02 00:00 :00 No [id number] 81mg Take 1 tablet by mouth daily. [facility] clopidogreL (PLAVIX) 75 mg tablet 11-18 00:00: 00 12-10 04:59 :00 No [id number] 75mg Take 1 tablet by mouth daily for 21 days. [facility] doxycycline hyclate 100 mg capsule 11-18 00:00: 00 11-23 05:59 :00 No [id number] 100mg Take 1 capsule by mouth every 12 (twelve) hours for 4 days. [facility] vancomycin 1000 mg in NS 200 mL RTU IV Piggyback 11-17 23:59: 45 11-17 23:59 :45 No IV Piggyback, TITRATE - FOR PROCEDURE USE, 1 dose, Starting Tue11/17/20 at 1759, Until Tue11/17/20 at 1759 [facility] Saline Bubble Study 11-17 23:21: 41 Yes [id number] 6mL 6 mL, Injection, SEE-INSTRU CTIONS, Starting 11/17/20 at 1721, Until Discontinu ed, Routine [facility] clopidogreL (PLAVIX) tablet 75 mg 11-17 15:00: 00 Yes 75mg 75 mg, Oral, DAILY, First dose on 11/17/20 at 0900, Until Discontinu ed, Routine [facility] KCL (KLOR-CON M20) tablet 40 mEq 11-17 13:06: 00 11-17 14:58 :00 No 40meq 40 mEq, Oral, ONCE, 1 dose, 11/17/20 at 0715, Routine [facility] atorvastati n (LIPITOR) tablet 20 mg 11-17 03:00: 00 11-17 19:03 :08 No 20mg 20 mg, Oral, QHS, First dose (after last modificati on) on [place] 11/16/20 at 2100, Until Discontinu ed, Routine [facility] NaCl 0.9% (NS) IV infusion 1,000 mL 11-16 15:00: 00 Yes 1000mL at 100 mL/hr, IV Infusion, CONTINUOUS , Starting [place] 11/16/20 at 0900, Until Discontinu ed, Routine [facility] aspirin chewable tablet 81 mg 11-16 15:00: 00 Yes 81mg 81 mg, Oral, DAILY, First dose on Tue11/16/20 at 0900, Until Discontinu ed, Routine [facility] PARoxetine (PAXIL) tablet 10 mg 11-16 15:00: 00 Yes 10mg 10 mg, Oral, DAILY, First dose on 11/16/20 at 0900, Until Discontinu ed, Routine [facility] iohexol (OMNIPAQUE 350 BULK-100 mL) injection 100 mL 11-16 03:45: 00 11-16 03:40 :00 No [id number] 100mL 100 mL, Intravenou s, ONCE, 1 dose, 11/15/20 at 2145, Routine [facility] atorvastati n (LIPITOR) tablet 80 mg 11-16 03:00: 00 11-16 10:50 :05 No 80mg 80 mg, Oral, QHS, First dose on 11/15/20 at 2100, Until Discontinu ed, Routine [facility] acetaminoph en (TYLENOL) tablet 325 mg 11-16 02:12: 14 Yes 325mg 325 mg, Oral, Q6HPRN, Starting 11/15/20 at 2011, Until Discontinu ed, Routine, Pain (scale 4-6) [facility] meclizine (ANTIVERT) tablet 12.5 mg 11-16 02:11: 59 Yes 12.5mg 12.5 mg, Oral, TIDPRN, Starting 11/15/20 at 2010, Until Discontinu ed, Routine, Dizziness [facility] pramipexole (MIRAPEX) tablet 0.75 mg 11-16 02:00: 00 Yes .75mg 0.75 mg, Oral, BID, First dose on 11/15/20 at 1999, Until Discontinu ed, Routine
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 medication : NAVA GRAY [facility] heparin (porcine) injection 5,000 Units 11-16 02:00: 00 11-18 14:11 :30 No 5000U 5,000 Units, Subcutaneo us, Q12H, First dose on 11/15/20 at 1999, Until Discontinu ed, Routine [facility] ondansetron (ZOFRAN (PF)) injection 4 mg 11-15 21:30: 00 11-15 20:38 :00 No 4mg 4 mg, Slow IV Push, ONCE, 1 dose, 11/15/20 at 1530, JANUSZ [facility] aspirin tablet 325 mg 11-15 21:30: 00 11-15 20:38 :00 No 325mg 325 mg, Oral, ONCE, 1 dose, 11/15/20 at 1530, STAT [facility] No Known Medications No Known Medications No [facility] Immunizations Ordered Immunization Name Filled Immunization Name Date Status Comments Source TD, NOS 2020-12-20 00:00:00 Completed [facility] TD, NOS 2020-12-20 00:00:00 Completed [facility] TD, NOS 2020-12-20 00:00:00 Completed [facility] TD, NOS 2020-12-20 00:00:00 Completed [facility] TD, NOS 2020-12-20 00:00:00 Completed [facility] TD, NOS 2020-12-20 00:00:00 Completed [facility] TD, NOS 2020-12-20 00:00:00 Completed [facility] TD, NOS 2020-12-20 00:00:00 Completed [facility] TD, NOS 2020-12-20 00:00:00 Completed [facility] TD, NOS 2020-12-20 00:00:00 Completed [facility] TD, NOS 2020-12-20 00:00:00 Completed [facility] TD, NOS 2020-12-20 00:00:00 Completed [facility] TD, NOS 2020-12-20 00:00:00 Completed [facility] TD, NOS 2020-12-20 00:00:00 Completed [facility] TD, NOS 2020-12-20 00:00:00 Completed [facility] TD, NOS 2020-12-20 00:00:00 Completed [facility] TD, NOS 2020-12-20 00:00:00 Completed [facility] TD, NOS 2020-12-20 00:00:00 Completed [facility] TD, NOS 2020-12-20 00:00:00 Completed [facility] TD, NOS 2020-12-20 00:00:00 Completed [facility] TD, NOS 2020-12-20 00:00:00 Completed [facility] TD, NOS 2020-12-20 00:00:00 Completed [facility] TD, NOS 2020-12-20 00:00:00 Completed [facility] TD, NOS 2020-12-20 00:00:00 Completed [facility] TD, NOS 2020-12-20 00:00:00 Completed [facility] TD, NOS 2020-12-20 00:00:00 Completed [facility] TD, NOS 2020-12-20 00:00:00 Completed [facility] TD, NOS 2020-12-20 00:00:00 Completed [facility] TD, NOS 2020-12-20 00:00:00 Completed [facility] TD, NOS 2020-12-20 00:00:00 Completed [facility] TD, NOS 2020-12-20 00:00:00 Completed [facility] TD, NOS 2020-12-20 00:00:00 Completed [facility] TD, NOS 2020-12-20 00:00:00 Completed [facility] TD, NOS 2020-12-20 00:00:00 Completed [facility] TD, NOS 2020-12-20 00:00:00 Completed [facility] Td 2020-12-20 00:00:00 Completed [facility] Td 2020-12-20 00:00:00 Completed [facility] Td 2020-12-20 00:00:00 Completed [facility] Td 2020-12-20 00:00:00 Completed [facility] Td 2020-12-20 00:00:00 Completed [facility] Td 2020-12-20 00:00:00 Completed [facility] Td 2020-12-20 00:00:00 Completed [facility] Td 2020-12-20 00:00:00 Completed [facility] Td 2020-12-20 00:00:00 Completed [facility] Td 2020-12-20 00:00:00 Completed [facility] Td 2020-12-20 00:00:00 Completed [facility] Td 2020-12-20 00:00:00 Completed [facility] TD, NOS 2020-12-20 00:00:00 Completed [facility] TD, NOS 2020-12-20 00:00:00 Completed [facility] TD, NOS 2020-12-20 00:00:00 Completed [facility] TD, NOS 2020-12-20 00:00:00 Completed [facility] TD, NOS 2020-12-20 00:00:00 Completed [facility] TD, NOS 2020-12-20 00:00:00 Completed [facility] TD, NOS 2020-12-20 00:00:00 Completed [facility] TD, NOS 2020-12-20 00:00:00 Completed [facility] TD, NOS 2020-12-20 00:00:00 Completed [facility] TD, NOS 2020-12-20 00:00:00 Completed [facility] TD, NOS 2020-12-20 00:00:00 Completed [facility] TD, NOS 2020-12-20 00:00:00 Completed [facility] TD, NOS 2020-12-20 00:00:00 Completed [facility] TD, NOS 2020-12-20 00:00:00 Completed [facility] Td 2020-12-20 00:00:00 Completed [facility] TD, NOS 2020-12-20 00:00:00 Completed [facility] TD, NOS 2020-12-20 00:00:00 Completed [facility] TD, NOS 2020-12-20 00:00:00 Completed [facility] TD, NOS 2020-12-20 00:00:00 Completed [facility] TD, NOS 2020-12-20 00:00:00 Completed [facility] TD, NOS 2020-12-20 00:00:00 Completed [facility] Td 2020-12-20 00:00:00 Completed [facility] TD, NOS 2020-12-20 00:00:00 Completed [facility] TD, NOS 2020-12-20 00:00:00 Completed [facility] TD, NOS 2020-12-20 00:00:00 Completed [facility] TD, NOS 2020-12-20 00:00:00 Completed [facility] Td 2020-12-20 00:00:00 Completed [facility] TD, NOS 2020-12-20 00:00:00 Completed [facility] TD, NOS 2020-12-20 00:00:00 Completed [facility] TD, NOS 2020-12-20 00:00:00 Completed [facility] TD, NOS 2020-12-20 00:00:00 Completed [facility] TD, NOS Unknown Completed [facility] TD, NOS Unknown Completed [facility] TD, NOS Unknown Completed [facility] TD, NOS Unknown Completed [facility] TD, NOS Unknown Completed [facility] TD, NOS Unknown Completed [facility] TD, NOS Unknown Completed [facility] TD, NOS Unknown Completed [facility] TD, NOS Unknown Completed [facility] TD, NOS Unknown Completed [facility] TD, NOS Unknown Completed [facility] TD, NOS Unknown Completed [facility] TD, NOS Unknown Completed [facility] TD, NOS Unknown Completed [facility] TD, NOS Unknown Completed [facility] TD, NOS Unknown Completed [facility] TD, NOS Unknown Completed [facility] TD, NOS Unknown Completed [facility] TD, NOS Unknown Completed [facility] TD, NOS Unknown Completed [facility] TD, NOS Unknown Completed [facility] TD, NOS Unknown Completed [facility] TD, NOS Unknown Completed [facility] TD, NOS Unknown Completed [facility] TD, NOS Unknown Completed [facility] TD, NOS Unknown Completed [facility] TD, NOS Unknown Completed [facility] TD, NOS Unknown Completed [facility] TD, NOS Unknown Completed [facility] TD, NOS Unknown Completed [facility] TD, NOS Unknown Completed [facility] TD, NOS Unknown Completed [facility] TD, NOS Unknown Completed [facility] TD, NOS Unknown Completed [facility] TD, NOS Unknown Completed [facility] TD, NOS Unknown Completed [facility] TD, NOS Unknown Completed [facility] TD, NOS Unknown Completed [facility] TD, NOS Unknown Completed [facility] TD, NOS Unknown Completed [facility] Vital Signs Vital Name Observation Time Observation Value Comments S ource Systolic blood pressure 2024-05-24 14:43:00 120 mm[Hg] [facility] Diastolic blood pressure 2024-05-24 14:43:00 59 mm[Hg] [facility] Heart rate 2024-05-24 14:43:00 72 /min [facility] Respiratory rate 2024-05-24 14:43:00 16 /min [facility] Body height 2024-05-24 14:43:00 160 cm [facility] Body weight 2024-05-24 14:43:00 66.679 kg [facility] BMI 2024-05-24 14:43:00 26.04 kg/m2 [facility] Oxygen saturation in Arterial blood by Pulse oximetry 2024-05-24 14:43:00 98 /min [facility] height 2024-05-10 10:00:00 62 [in_i] [facility] weight-kg 2024-05-10 10:00:00 63.5 kg [facility] bmi 2024-05-10 10:00:00 25.6 kg/m2 [facility] Systolic blood pressure 2024-03-07 15:29:00 118 mm[Hg] [facility] Diastolic blood pressure 2024-03-07 15:29:00 59 mm[Hg] [facility] Heart rate 2024-03-07 15:29:00 85 /min [facility] [facility] Body [facility] 2024-03-07 15:29:00 37.22 [facility] Respiratory rate 2024-03-07 15:29:00 18 /min [facility] Oxygen saturation in Arterial blood by Pulse oximetry 2024-03-07 15:29:00 94 /min [facility] Systolic blood pressure 2023-05-26 14:43:00 129 mm[Hg] [facility] Diastolic blood pressure 2023-05-26 14:43:00 63 mm[Hg] [facility] Heart rate 2023-05-26 14:43:00 79 /min [facility] Body temperature 2023-05-26 14:43:00 36.67 [facility] Respiratory rate 2023-05-26 14:43:00 16 /min [facility] Body weight 2023-05-26 14:43:00 63.504 kg per pt/unable to weigh [facility] BMI 2023-05-26 14:43:00 25.61 kg/m2 [facility] Oxygen saturation in Arterial blood by Pulse oximetry 2023-05-26 14:43:00 93 /min [facility] Systolic blood pressure 2022-12-02 15:20:00 125 mm[Hg] [facility] Diastolic blood pressure 2022-12-02 15:20:00 59 mm[Hg] [facility] Heart rate 2022-12-02 15:20:00 82 /min [facility] Body temperature 2022-12-02 15:20:00 36.94 Helen [facility] Respiratory rate 2022-12-02 15:20:00 17 /min [facility] Body height 2022-12-02 15:20:00 157.5 cm per pt [facility] Body weight 2022-12-02 15:20:00 57.607 kg per pt [facility] BMI 2022-12-02 15:20:00 23.23 kg/m2 [facility] Oxygen saturation in Arterial blood by Pulse oximetry 2022-12-02 15:20:00 95 /min [facility] Systolic blood pressure 2022-09-02 16:19:00 120 mm[Hg] [facility] Diastolic blood pressure 2022-09-02 16:19:00 59 mm[Hg] [facility] Heart rate 2022-09-02 16:19:00 81 /min [facility] Body temperature 2022-09-02 16:19:00 36.89 Helen [facility] Respiratory rate 2022-09-02 16:19:00 16 /min [facility] Body weight 2022-09-02 16:19:00 57.607 kg per pt [facility] BMI 2022-09-02 16:19:00 23.23 kg/m2 [facility] Oxygen saturation in Arterial blood by Pulse oximetry 2022-09-02 16:19:00 93 /min [facility] Systolic blood pressure 2021-10-04 21:49:00 144 mm[Hg] [facility] Diastolic blood pressure 2021-10-04 21:49:00 73 mm[Hg] [facility] Heart rate 2021-10-04 21:49:00 76 /min [facility] Respiratory rate 2021-10-04 18:00:00 17 /min [facility] Oxygen saturation in Arterial blood by Pulse oximetry 2021-10-04 18:00:00 99 /min [facility] Body temperature 2021-10-04 17:29:07 37.67 Helen [facility] Body weight 2021-10-04 17:18:00 58.968 kg [facility] BMI 2021-10-04 17:18:00 23.78 kg/m2 [facility] Systolic blood pressure 2020-12-20 20:00:00 145 mm[Hg] [facility] Diastolic blood pressure 2020-12-20 20:00:00 61 mm[Hg] [facility] Heart rate 2020-12-20 20:00:00 84 /min [facility] Respiratory rate 2020-12-20 20:00:00 19 /min [facility] Oxygen saturation in Arterial blood by Pulse oximetry 2020-12-20 20:00:00 98 /min [facility] Body temperature 2020-12-20 14:24:00 36.22 Helen [facility] Body weight 2020-12-20 14:24:00 62.596 kg [facility] BMI 2020-12-20 14:24:00 25.24 kg/m2 [facility] Systolic blood pressure 2020-11-18 20:57:00 144 mm[Hg] [facility] Diastolic blood pressure 2020-11-18 20:57:00 69 mm[Hg] [facility] Heart rate 2020-11-18 20:57:00 87 /min [facility] Body temperature 2020-11-18 20:57:00 36.44 [facility] Respiratory rate 2020-11-18 20:57:00 16 /min [facility] Oxygen saturation in Arterial blood by Pulse oximetry 2020-11-18 20:57:00 100 /min [facility] Body height 2020-11-15 23:59:00 157.5 cm [facility] Body weight 2020-11-15 23:59:00 63 kg [facility] BMI 2020-11-15 23:59:00 25.40 kg/m2 [facility] Procedures Procedure Date / Time Performed Performing Clinician Source MEDICATION CORRESPONDENCE 2023-07-29 06:01:00 Do ctor Unassigned, [place] [facility] PHYSICIAN ORDERS 2023-07-11 05:01:00 Doctor Naveed signed, [place] [facility] SCANNED LAB RESULTS 2023-06-28 05:01:00 Doctor Neo mcdonald, [place] [facility] PHYSICIAN ORDERS 2023-05-27 05:01:00 Doctor Naveed signed, [place] [facility] AUTHORIZATION FOR RELEASE OF PHI 2023-04-27 05:01:00 Doctor Unassigned, [place] [facility] EXTERNAL PROVIDER - ADC CARDIOLOGY 2023-04-14 05:01:00 Doctor Unassigned, [place] [facility] MEDICATION CORRESPONDENCE 2023-03-04 05:01:00 Do ctor Unassigned, [place] [facility] SCANNED LAB RESULTS 2023-02-01 05:01:00 Doctor Neo mcdonald, [place] [facility] SCANNED LAB RESULTS 2023-01-20 05:01:00 Doctor Neo mcdonald, [place] [facility] MEDICATION CORRESPONDENCE 2023-01-14 05:01:00 Do ctor Unassigned, [place] [facility] HEALTH - OTHER 2022-12-24 05:01:00 Doctor Neo mcdonald, [place] [facility] PHYSICIAN ORDERS 2022-12-13 05:01:00 Doctor Naveed signed, [place] [facility] MEDICATION CORRESPONDENCE 2022-11-23 05:01:00 Do ctor Unassigned, [place] [facility] MEDICATION CORRESPONDENCE 2022-11-11 06:01:00 Do ctor Unassigned, [place] [facility] MEDICATION CORRESPONDENCE 2022-11-02 06:01:00 Do ctor Unassigned, [place] [facility] AUTHORIZATION FOR RELEASE OF PHI 2022-10-25 06:01:00 Doctor Unassigned, [place] [facility] MEDICATION CORRESPONDENCE 2022-09-30 06:01:00 Do ctor Unassigned, [place] [facility] HEALTH - OTHER 2022-09-21 06:01:00 Doctor Neo mcdonald, [place] [facility] PHYSICIAN ORDERS 2022-09-10 06:01:00 Doctor Naveed signed, [place] [facility] ASSIGNMENT OF BENEFITS 2022-08-19 14:59:37 Docto r Unassigned, [place] [facility] SCANNED LAB RESULTS 2022-07-13 05:01:00 Doctor Neo mcdonald, [place] [facility] CARDIAC DEVICE CHECK - REMOTE - LOOP RECORDER (ILR) 2022-05-10 18:17:00 Miller Machuca [facility] XR HIPS 2 VW LEFT 2021-10-04 21:19:07 Joao Lentz [facility] CT CERVICAL SPINE WO CONTRAST 2021-10-04 21:18:47 Joao Lentz [facility] CT HEAD WO CONTRAST 2021-10-04 21:18:47 Joao Lentz [facility] CT STROKE ANGIOGRAM HEAD 2021-10-04 19:33:50 Angy Lentz [facility] CT STROKE ANGIOGRAM NECK 2021-10-04 19:33:50 Angy Lentz [facility] CT STROKE HEAD WO CONTRAST 2021-10-04 19:33:32 Joao Lentz [facility] PROTHROMBIN TIME / INR 2021-10-04 17:59:00 Jules Lentz [facility] ACTIVATED PARTIAL THRMPLAS AJAY 2021-10-04 17:59:00 Joao Lentz [facility] COVID-19 (ID NOW RAPID TESTING) 2021-10-04 17:59:00 Joao Lentz [facility] TROPONIN I 2021-10-04 17:59:00 Joao Lentz [facility] BASIC METABOLIC PANEL (NA, K, CL, CO2, GLUCOSE, BUN, CREATININE, CA) 2021-10-04 17:59:00 Joao Lentz [facility] CBC WITHOUT DIFF 2021-10-04 17:59:00 Joao Lentz [facility] CT CERVICAL SPINE WO CONTRAST 2020-12-20 15:10:22 Farhana Salazar [facility] CT HEAD WO CONTRAST 2020-12-20 15:10:22 Margie Salazar ra [facility] XR HAND 3+ VW LEFT 2020-12-20 14:45:02 Saeed Salazar [facility] DNR 2020-11-25 05:01:00 Doctor Alli rasheed, [place] [facility] MAGNESIUM 2020-11-18 11:31:00 Mag Paulson [facility] BASIC METABOLIC PANEL (NA, K, CL, CO2, GLUCOSE, BUN, CREATININE, CA) 2020-11-18 11:31:00 Fay Stephenson [facility] ECHO ROUTINE W/DOPPLER COLOR 2020-11-17 20:00[facility] 2020-11-17 10:26:00 Terrance Stephenson [facility] BASIC METABOLIC PANEL (NA, K, CL, CO2, GLUCOSE, BUN, CREATININE, CA) 2020-11-17 10:26:[facility]W 2020-11-16 16:18:00 Musa Torres [facility] BASIC METABOLIC PANEL (NA, K, CL, CO2, GLUCOSE, BUN, CREATININE, CA) 2020-11-16 09:48:00 Ha [facility] LIPID PANEL (67358)(TOTAL CHOLESTEROL, TRIGLYCERIDES, HDL) 2020-11-16 09:48:00 Ha [facility] MR STROKE BRAIN WO CONTRAST 2020-11-16 08:12:53 Ha [facility] GLYCOSYLATED HEMOGLOBIN (A1C) 2020-11-16 05:06:00 Ha [facility] CREATINE KINASE 2020-11-16 05:05:00 Ha [facility] TROPONIN I 2020-11-16 05:05:00 Amanda Bonner [facility] VERIFYNOW PRUTEST (P2Y12) 2020-11-16 05:05:00 Ha [facility] CT ANGIOGRAM HEAD 2020-11-16 03:50:00 Meryl Bonner i [facility] CT ANGIOGRAM NECK 2020-11-16 03:50:00 Adriana Bonner ry [facility] URINALYSIS 2020-11-15 20:42:00 [facility] HEAD WO CONTRAST 2020-11-15 19:23:05 Cristy Kay [facility] CREATINE KINASE 2020-11-15 19:06:00 [facility] 2020-11-15 [facility]:06[facility]-11-15 19:06:00 [facility] FREE T4 2020-11-15 19:06:00 Michael [facility] THYROID STIMULATING HORMONE 2020-11-15 19:06:00 Michael Kay [facility] HEPATIC FUNCTION PANEL (86859) (ALB,T.PRO,BILI T,BU/BC,ALT,AST,ALK PHOS) 2020-11-15 19:06:00 Michael Kay [facility] BASIC METABOLIC PANEL (NA, K, CL, CO2, GLUCOSE, BUN, CREATININE, CA) 2020-11-15 19:06:00 Michael Kay [facility] CBC WITH DIFF 2020-11-15 19:06:00 Michael Kay [facility] PROTHROMBIN TIME / INR 2020-11-15 19:06:00 Luis Kay [facility] ACTIVATED PARTIAL THRMPLAS AJAY 2020-11-15 19:06:00 Michael Kay [facility] N-TERMINAL PRO-BNP 2020-11-15 19:06:00 Michael Kay [facility] COVID-19 (ID NOW RAPID TESTING) 2020-11-15 19:06:00 Michael Kay [facility] LAB ONLY COVID INTERPRETATION 2020-11-15 19:06:00 Michael Kay [facility] HB ECG ROUTINE & RHYTHM STRIP 2020-11-15 19:04:03 Michael Kay [facility] EMERGENCY SERVICES AGREEMENTS AND AUTHORIZATIONS 2020-11-15 06:01:00 Doctor Unassigned, [place] [facility] HOSPITAL ADMISSION 2020-11-15 06:01:00 Doctor Un assigned, [place] [facility] Encounters Start Date/Time End Date/Time Encounter Type Admission Type Attending [facility] Care Department Encounter ID Source 2024-02-09 10:09:01 Outpatient Sheng Olivares [facility] [id number] [facility] 2022-03-30 11:54:59 Outpatient 3 [id number] [facility] CVA [id number] [facility] 2022-03-29 13:26:17 Outpatient 3 [id number] [facility] REF [id number] [facility] 2021-10-08 11:55:32 Outpatient 3 [id number] [facility] REF [id number] [facility] 2021-07-12 12:01:12 Emergency [facility] [id number] [facility] 2024-08-13 09:00:00 2024-08-13 09:10:00 [facility] 1.2.840.114 350.1.13.10 4.2.7.2.686 [id number] [facility] 2024-08-13 09:00:00 2024-08-13 09:00:00 Outpatient R LEELEE ZAMORA [facility] [id number] [facility] 2024-08-10 00:00:00 2024-08-10 17:16:01 Telephone [facility] 1.2.840.114 350.1.13.10 4.2.7.2.686 [id number] [facility] 2024-08-02 14:20:00 2024-08-02 15:37:00 Outpatient R JALEESA [facility]AFORMERLY [facility] [id number] [facility] 2024-08-02 14:20:00 2024-08-02 15:37:00 Office Visit Leelee Zamora [facility] 1.2.840.114 350.1.13.10 4.2.7.2.686 [id number] [facility] 2024-08-01 00:00:00 2024-08-01 15:22:03 [facility] 1.2.840.114 350.1.13.10 4.2.7.2.686 [id number] [facility] 2024-07-30 00:00:00 2024-07-30 14:41:01 [facility] 1.2.840.114 350.1.13.10 4.2.7.2.686 [id number] [facility] 2024-07-16 00:00:00 2024-07-16 14:19:07 Tele[facility] 1.2.840.114 350.1.13.10 4.2.7.2.686 [id number] [facility] 2024-05-24 09:40:00 2024-05-24 09:59:37 Outpatient R [facility]ESA [facility] [id number] [facility] 2024-05-24 09:40:00 2024-05-24 09:59:37 Office Visit Markel [facility] 1.2.840.114 350.1.13.10 4.2.7.2.686 [id number] [id number] [facility] 2024-05-15 00:00:00 2024-05-15 10:51:21 [facility] 1.2.840.114 350.1.13.10 4.2.7.2.686 [id number] [facility] 2024-05-14 00:00:00 2024-05-15 09:52:28 Telephone Leelee Zamora [facility] 1.2.840.114 350.1.13.10 4.2.7.2.686 [id number] [facility] 2024-05-15 09:00:00 2024-05-15 09:10:00 [facility] 1.2.840.114 350.1.13.10 4.2.7.2.686 [id number] [facility] 2024-05-15 09:00:00 2024-05-15 09:00:00 Outpatient R MARKEL [facility] [id number] [facility] 2024-05-10 00:00:00 2024-05-10 00:00:00 (F/U) Follow Up Visit CLS CLS [id number] [facility] 2024-04-18 00:00:00 2024-04-19 12:36:08 [facility] 1.2.840.114 350.1.13.10 4.2.7.2.686 [id number] [facility] 2024-04-18 13:50:00 2024-04-18 16:55:38 Outpatient R MARKELJALEESAFORMERLY [facility] [id number] [facility] 2024-04-18 13:50:00 2024-04-18 16:55:38 [facility] 1.2.840.114 350.1.13.10 4.2.7.2.686 [id number] [id number] [facility] 2024-03-29 00:00:00 2024-04-04 09:56:03 Refill [facility] 1.2.840.114 350.1.13.10 4.2.7.2.686 [id number] [facility] 2024-04-02 00:00:00 2024-04-02 11:47:03 [facility] 1.2.840.114 350.1.13.10 4.2.7.2.686 [id number] [facility] 2024-03-30 00:00:00 2024-04-02 09:33:08 [facility] 1.2.840.114 350.1.13.10 4.2.7.2.686 [id number] [id number] [facility] 2024-03-30 00:00:00 2024-04-02 09:32:24 [facility] 1.2.840.114 350.1.13.10 4.2.7.2.686 [id number] [facility] 2024-03-30 10:20:00 2024-03-30 16:35:52 Outpatient R BARBY BOBO [facility] [id number] [facility] 2024-03-30 10:20:00 2024-03-30 16:35:52 Office Visit Barby Bobo [facility] 1.2.840.114 350.1.13.10 4.2.7.2.686 [id number] [facility] 2024-03-07 10:30:00 2024-03-07 10:56:24 Outpatient RU ALANIZ CHOCKALINGA M [facility] [id number] [facility] 2024-03-07 10:30:00 2024-03-07 10:56:24 Office Visit Gallo Landon Chockalinga m [facility] 1.2840.114 350.1.13.10 4.2.7.2.686 [id number] [facility] 2024-03-05 00:00:00 2024-03-05 16:47:20 [facility] 1.2840.114 350.1.13.10 4.2.7.2.686 [id number] [facility] 2024-03-05 11:20:00 2024-03-05 11:30:00 [facility] 1.2840.114 350.1.13.10 4.2.7.2.686 [id number] [facility] 2024-03-05 11:20:00 2024-03-05 11:20:00 Outpatient R MARKEL [facility] [id number] [facility] 2024-02-27 00:00:00 2024-02-27 16:56:20 [facility] 1.2840.114 350.1.13.10 4.2.7.2.686 [id number] [facility] 2024-02-23 08:07:19 2024-02-23 23:59:00 Outpatient R RU TONEY CHOCKALINGA M [facility] [id number] [facility] 2024-02-23 08:07:19 2024-02-23 23:59:00 Hospital Encounter Ru Toney [facility] 1.2.840.114 350.1.13.10 4.2.7.2.686 [id number] [facility] 2024-02-23 00:00:00 2024-02-23 11:29:39 [facility] 1.2.840.114 350.1.13.10 4.2.7.2.686 [id number] [facility] 2024-02-23 10:40:00 2024-02-23 10:50:00 [facility] 1.2.840.114 350.1.13.10 4.2.7.2.686 [id number] 059 [id number] [facility] 2024-02-20 00:00:00 2024-02-21 11:15:06 [facility] 1.2.840.114 350.1.13.10 4.2.7.2.686 [id number] [facility] 2024-02-09 00:00:00 2024-02-09 00:00:00 Office Visit- New Pt.- Level 3 CLS CLS [id number] [facility] 2023-08-29 00:00:00 2023-08-29 00:00:00 Telephone Ru Tonye [facility] 1.2.840.114 350.1.13.10 4.2.7.2.686 [id number] [facility] 2023-08-18 07:59:47 2023-08-18 23:59:00 Outpatient R RU TONEY [facility]OCKALINGA M [facility] [id number] [facility] 2023-08-18 07:59:47 2023-08-18 23:59:00 Hospital Encounter Ru Toney [facility] 1.2.840.114 350.1.13.10 4.2.7.2.686 [id number] [facility] 2023-08-18 00:00:00 2023-08-18 00:00:00 Telephone Ru Toney [facility] N[facility] 1.2.840.114 350.1.13.10 4.2.7.2.686 [id number] [facility] 2023-08-11 00:00:00 2023-08-11 00:00:00 [facility] 1.2.840.114 350.1.13.10 4.2.7.2.686 [id number] [facility] 2023-07-29 14:00:00 2023-07-29 14:10:00 [facility] 1.2840.114 350.1.13.10 4.2.7.2.686 [id number] [facility] 2023-07-29 14:00:00 2023-07-29 14:00:00 Outpatient R JALEESA [facility] [id number] [facility] 2023-07-29 00:00:00 2023-07-29 00:00:[address] [facility] 1.2.840.114 350.1.13.10 4.2.7.2.686 [id number] [facility] 2023-07-29 00:00:00 2023-07-29 00:00:00 Orders Only Doctor Unassigned, [place] [facility] 1.2840.114 350.1.13.10 4.2.7.2.686 [id number] [facility] 2023-07-11 09:20:00 2023-07-11 09:30:00 [facility] 1.2.840.114 350.1.13.10 4.2.7.2.686 [id number] [facility] 2023-07-11 09:20:00 2023-07-11 09:20:00 Outpatient R JALEESA [facility] [id number] [facility] 2023-07-11 00:00:00 2023-07-11 00:00:00 Orders Only Doctor Unassigned, [place] [facility] 1.2.840.114 350.1.13.10 4.2.7.2.686 [id number] [facility] 2023-07-08 00:00:00 2023-07-08 00:00:00 [facility] 1.2.840.114 350.1.13.10 4.2.7.2.686 [id number] [facility] 2023-07-04 00:00:00 2023-07-04 00:00:00 [facility] 1.2.840.114 350.1.13.10 4.2.7.2.686 [id number] [facility] 2023-06-30 08:30:00 2023-06-30 08:30:00 Outpatient R RU TONEY [facility]INGA M [facility] [id number] [facility] 2023-06-29 13:00:00 2023-06-29 13:10:00 [facility] 1.2.840.114 350.1.13.10 4.2.7.2.686 [id number] [facility] 2023-06-29 13:00:00 2023-06-29 13:00:00 Outpatient R LEELEE ZAMORA [facility] [id number] [facility] 2023-06-29 00:00:00 2023-06-29 00:00:00 [facility] 1.2.840.114 350.1.13.10 4.2.7.2.686 [id number] [facility] 2023-06-29 00:00:00 2023-06-29 00:00:00 [facility] 1.2.840.114 350.1.13.10 4.2.7.2.686 [id number] [facility] 2023-06-28 00:00:00 2023-06-28 00:00:00 Orders Only Doctor Unassigned, [place] [facility] 1.2.840.114 350.1.13.10 4.2.7.2.686 [id number] [facility] 2023-06-21 00:00:00 2023-06-21 00:00:00 [facility] 1.2.840.114 350.1.13.10 4.2.7.2.686 [id number] [facility] 2023-06-13 00:00:00 2023-06-13 00:00:00 [facility] 1.2.840.114 350.1.13.10 4.2.7.2.686 [id number] [facility] 2023-06-13 00:00:00 2023-06-13 00:00:00 [facility] 1.2.840.114 350.1.13.10 4.2.7.2.686 [id number] 059 [id number] [facility] 2023-06-01 11:00:00 2023-06-01 11:34:25 [facility] [place] [id number] [facility] 2023-06-01 11:00:00 2023-06-01 11:10:00 [facility] 1.2.840.114 350.1.13.10 4.2.7.2.686 [id number] [id number] [facility] 2023-06-01 00:00:00 2023-06-01 00:00:00 Telephone [facility] 1.2.840.114 350.1.13.10 4.2.7.2.686 [id number] [id number] [facility] 2023-05-27 00:00:00 2023-05-27 00:00:00 Orders Only Doctor Unassigned, [place] [facility] 1.2.840.114 350.1.13.10 4.2.7.2.686 [id number] [facility] 2023-05-26 10:20:00 2023-05-26 10:20:00 [facility] 1.2.840.114 350.1.13.10 4.2.7.2.686 [id number] 059 [id number] [facility] 2023-05-26 10:20:00 2023-05-26 10:13:16 [facility] [place] [facility] [id number] [facility] 2023-05-26 00:00:00 2023-05-26 00:00:00 Telephone [facility]el [facility] 1.2.840.114 350.1.13.10 4.2.7.2.686 [id number] 059 [id number] [facility] 2023-05-12 00:00:00 2023-05-12 00:00:00 [facility] 1.2.840.114 350.1.13.10 4.2.7.2.686 [id number] 059 [id number] [facility] 2023-05-02 09:00:00 2023-05-02 09:10:00 [facility] 1.2.840.114 350.1.13.10 4.2.7.2.686 [id number] 059 [id number] [facility] 2023-05-02 09:00:00 2023-05-02 09:00:[address] [facility] [id number] [facility] 2023-05-02 00:00:00 2023-05-02 00:00:00 [facility] 1.2.840.114 350.1.13.10 4.2.7.2.686 [id number] 059 [id number] [facility] 2023-04-28 00:00:00 2023-04-28 00:00:00 [facility] 1.2.840.114 350.1.13.10 4.2.7.2.686 [id number] 059 [id number] [facility] 2023-04-27 00:00:00 2023-04-27 00:00:00 Orders Only Doctor Unassigned, [place] [facility] 1.2.840.114 350.1.13.10 4.2.7.2.686 [id number] 009 [id number] [facility] 2023-04-26 00:00:00 2023-04-26 00:00:00 [facility] 1.2.840.114 350.1.13.10 4.2.7.2.686 [id number] 059 [id number] [facility] 2023-04-15 00:00:00 2023-04-15 00:00:00 [facility] 1.2.840.114 350.1.13.10 4.2.7.2.686 [id number] 059 [id number] [facility] 2023-04-14 00:00:00 2023-04-14 00:00:00 [facility] 1.2.840.114 350.1.13.10 4.2.7.2.686 [id number] 059 [id number] [facility] 2023-04-14 00:00:00 2023-04-14 00:00:00 Orders Only Doctor Unassigned, [place] [facility] 1.2.840.114 350.1.13.10 4.2.7.2.686 [id number] 009 [id number] [facility] 2023-03-04 00:00:00 2023-03-04 00:00:00 Orders Only Doctor Unassigned, [place] [facility] 1.2.840.114 350.1.13.10 4.2.7.2.686 [id number] 009 [id number] [facility] 2023-02-04 00:00:00 2023-02-04 00:00:00 [facility]phone [facility] 1.2.840.114 350.1.13.10 4.2.7.2.686 [id number] 059 [id number] [facility] 2023-02-03 11:30:00 2023-02-03 12:38:15 [facility] [id number] [facility] 2023-02-03 11:30:00 2023-02-03 12:38:15 [facility] 1.2.840.114 350.1.13.10 4.2.7.2.686 [id number] 059 [id number] [facility] 2023-02-01 00:00:00 2023-02-01 00:00:00 Orders Only Doctor Unassigned, [place] [facility] 1.2.840.114 350.1.13.10 4.2.7.2.686 [id number] 009 [id number] [facility] 2023-01-21 00:00:00 2023-01-21 00:00:00 [facility]phone [facility] 1.2.840.114 350.1.13.10 4.2.7.2.686 [id number] 059 [id number] [facility] 2023-01-20 09:10:00 2023-01-20 09:20:00 [facility] 1.2840.114 350.1.13.10 4.2.7.2.686 [id number] 059 [id number] [facility] 2023-01-20 09:10:00 2023-01-20 09:10:00 [facility] [id number] [facility] 2023-01-20 00:00:00 2023-01-20 00:00:00 Telephone [facility] 1.2840.114 350.1.13.10 4.2.7.2.686 [id number] 059 [id number] [facility] 2023-01-20 00:00:00 2023-01-20 00:00:00 Orders Only Doctor Unassigned, [place] [facility] 1.2.840.114 350.1.13.10 4.2.7.2.686 [id number] 009 [id number] [facility] 2023-01-17 00:00:00 2023-01-17 00:00:00 Telephone Leelee Zamora [facility] BUILD[facility] 1.2.840.114 350.1.13.10 4.2.7.2.686 [id number] 059 [id number] [facility] 2023-01-14 10:10:00 2023-01-14 11:19:37 Outpatient R [facility] [id number] [facility] 2023-01-14 10:10:00 2023-01-14 11:19:37 [facility] 1.2.840.114 350.1.13.10 4.2.7.2.686 [id number] 059 [id number] [facility] 2023-01-14 00:00:00 2023-01-14 00:00:00 Telephone [facility] 1.2.840.114 350.1.13.10 4.2.7.2.686 [id number] 059 [id number] [facility] 2023-01-14 00:00:00 2023-01-14 00:00:00 [facility] 1.2.840.114 350.1.13.10 4.2.7.2.686 [id number] 059 [id number] [facility] 2023-01-14 00:00:00 2023-01-14 00:00:00 Orders Only Doctor Unassigned, [place] [facility] 1.2.840.114 350.1.13.10 4.2.7.2.686 [id number] 009 [id number] [facility] 2023-01-03 00:00:00 2023-01-03 00:00:00 [facility] 1.2.840.114 350.1.13.10 4.2.7.2.686 [id number] 059 [id number] [facility] 2023-01-03 00:00:00 2023-01-03 00:00:00 [facility] 1.2.840.114 350.1.13.10 4.2.7.2.686 [id number] 059 [id number] [facility] 2022-12-31 00:00:00 2022-12-31 00:00:00 [facility] 1.2.840.114 350.1.13.10 4.2.7.2.686 [id number] 059 [id number] [facility] 2022-12-31 00:00:00 2022-12-31 00:00:00 Telephone [facility] 1.2.840.114 350.1.13.10 4.2.7.2.686 [id number] 059 [id number] [facility] 2022-12-30 15:50:00 2022-12-30 16:00:00 [facility] 1.2.840.114 350.1.13.10 4.2.7.2.686 [id number] 059 [id number] [facility] 2022-12-30 15:50:00 2022-12-30 15:50:00 Outpatient R [facility] [id number] [facility] 2022-12-24 00:00:00 2022-12-24 00:00:00 [facility] 1.2.840.114 350.1.13.10 4.2.7.2.686 [id number] 059 [id number] [facility] 2022-12-24 00:00:00 2022-12-24 00:00:00 [facility] 1.2.840.114 350.1.13.10 4.2.7.2.686 [id number] 059 [id number] [facility] 2022-12-24 00:00:00 2022-12-24 00:00:00 Orders Only Doctor Unassigned, [place] [facility] 1.2.840.114 350.1.13.10 4.2.7.2.686 [id number] 009 [id number] [facility] 2022-12-24 00:00:00 2022-12-24 00:00:00 [facility] 1.2.840.114 350.1.13.10 4.2.7.2.686 [id number] 059 [id number] [facility] 2022-12-23 15:40:00 2022-12-23 15:50:00 [facility] 1.2.840.114 350.1.13.10 4.2.7.2.686 [id number] 059 [id number] [facility] 2022-12-23 15:40:00 2022-12-23 15:40:00 Outpatient R [facility] [id number] [facility] 2022-12-16 15:00:00 2022-12-16 16:28:16 Outpatient R [facility] [id number] [facility] 2022-12-16 15:00:00 2022-12-16 16:28:16 [facility] 1.2.840.114 350.1.13.10 4.2.7.2.686 [id number] 059 [id number] [facility] 2022-12-16 00:00:00 2022-12-16 00:00:00 Telephone Leelee [facility] 1.2.840.114 350.1.13.10 4.2.7.2.686 [id number] 059 [id number] [facility] 2022-12-13 00:00:00 2022-12-13 00:00:00 Orders Only Doctor Unassigned, [place] [facility] 1.2.840.114 350.1.13.10 4.2.7.2.686 [id number] 009 [id number] [facility] 2022-12-13 00:00:00 2022-12-13 00:00:00 [facility] 1.2.840.114 350.1.13.10 4.2.7.2.686 [id number] 059 [id number] [facility] 2022-12-02 10:20:00 2022-12-02 10:41:50 Outpatient R [facility] [id number] [facility] 2022-12-02 10:20:00 2022-12-02 10:41:50 [facility] 1.2.840.114 350.1.13.10 4.2.7.2.686 [id number] 059 [id number] [facility] 2022-11-24 00:00:00 2022-11-24 00:00:00 [facility] 1.2.840.114 350.1.13.10 4.2.7.2.686 [id number] 059 [id number] [facility] 2022-11-23 13:00:00 2022-11-23 13:10:00 [facility] 1.2.840.114 350.1.13.10 4.2.7.2.686 [id number] 059 [id number] [facility] 2022-11-23 13:00:00 2022-11-23 13:00:00 Outpatient R [facility] [id number] [facility] 2022-11-23 00:00:00 2022-11-23 00:00:00 Telephone [facility] 1.2.840.114 350.1.13.10 4.2.7.2.686 [id number] 059 [id number] [facility] 2022-11-23 00:00:00 2022-11-23 00:00:00 Orders Only Doctor Unassigned, [place] [facility] 1.2840.114 350.1.13.10 4.2.7.2.686 [id number] 009 [id number] [facility] 2022-11-11 15:40:00 2022-11-11 15:50:00 Office Visit [facility] 1.2840.114 350.1.13.10 4.2.7.2.686 [id number] 059 [id number] [facility] 2022-11-11 15:40:00 2022-11-11 15:40:00 Outpatient R [facility] [id number] [facility] 2022-11-11 00:00:00 2022-11-11 00:00:00 Orders Only Doctor Unassigned, [place] [facility] 1.2840.114 350.1.13.10 4.2.7.2.686 [id number] 009 [id number] [facility] 2022-11-10 00:00:00 2022-11-10 00:00:00 Telephone [facility] 1.2.840.114 350.1.13.10 4.2.7.2.686 [id number] 059 [id number] [facility] 2022-11-02 00:00:00 2022-11-02 00:00:00 Orders Only Doctor Unassigned, [place] [facility] 1.2.840.114 350.1.13.10 4.2.7.2.686 [id number] 009 [id number] [facility] 2022-11-01 00:00:00 2022-11-01 00:00:00 [facility] 1.2.840.114 350.1.13.10 4.2.7.2.686 [id number] 059 [id number] [facility] 2022-10-25 00:00:00 2022-10-25 00:00:00 Orders Only Doctor Unassigned, [place] [facility] 1.2.840.114 350.1.13.10 4.2.7.2.686 [id number] 009 [id number] [facility] 2022-10-22 00:00:00 2022-10-22 00:00:00 [facility] 1.2.840.114 350.1.13.10 4.2.7.2.686 [id number] 059 [id number] [facility] 2022-10-22 00:00:00 2022-10-22 00:00:00 Telephone [facility] 1.2.840.114 350.1.13.10 4.2.7.2.686 [id number] 059 [id number] [facility] 2022-09-30 00:00:00 2022-09-30 00:00:00 [facility] 1.2.840.114 350.1.13.10 4.2.7.2.686 [id number] 059 [id number] [facility] 2022-09-30 00:00:00 2022-09-30 00:00:00 Orders Only Doctor Unassigned, [place] [facility] 1.2.840.114 350.1.13.10 4.2.7.2.686 [id number] 009 [id number] [facility] 2022-09-27 00:00:00 2022-09-27 00:00:00 Telephone [facility] 1.2.840.114 350.1.13.10 4.2.7.2.686 [id number] 059 [id number] [facility] 2022-09-23 00:00:00 2022-09-23 00:00:00 Telephone [facility] 1.2.840.114 350.1.13.10 4.2.7.2.686 [id number] 059 [id number] [facility] 2022-09-21 00:00:00 2022-09-21 00:00:00 Telephone [facility] 1.2.840.114 350.1.13.10 4.2.7.2.686 [id number] 059 [id number] [facility] 2022-09-21 00:00:00 2022-09-21 00:00:00 Orders Only Doctor Unassigned, [place] [facility] 1.2.840.114 350.1.13.10 4.2.7.2.686 [id number] 009 [id number] [facility] 2022-09-20 00:00:00 2022-09-20 23:59:00 Outpatient MILLER MARTIN [facility] [id number] [facility] 2022-09-20 00:00:00 2022-09-20 23:59:00 Hospital Encounter Miller Machuca [facility] 1.2.840.114 350.1.13.10 4.2.7.2.686 [id number] 844 [id number] [facility] 2022-09-10 00:00:00 2022-09-10 00:00:00 Orders Only Doctor Unassigned, [place] [facility] 1.2840.114 350.1.13.10 4.2.7.2.686 [id number] 009 [id number] [facility] 2022-09-09 00:00:00 2022-09-09 00:00:00 [facility] 1.2840.114 350.1.13.10 4.2.7.2.686 [id number] 059 [id number] [facility] 2022-09-02 10:40:00 2022-09-02 10:41:[address] [facility] [id number] [facility] 2022-09-02 10:40:00 2022-09-02 10:41:13 Office Visit [facility] 1.2840.114 350.1.13.10 4.2.7.2.686 [id number] 059 [id number] [facility] 2022-08-19 09:34:16 2022-08-19 23:59:00 Outpatient R [facility] [id number] [facility] 2022-08-19 10:30:00 2022-08-19 11:00:00 Nurse Visit Visit, Adc Nurse Sven [facility] 1.284.114 350.1.13.10 4.2.7.2.686 [id number] 059 [id number] [facility] 2022-08-19 00:00:00 2022-08-19 00:00:00 Orders Only Doctor Unassigned, [place] [facility] 1.2840.114 350.1.13.10 4.2.7.2.686 [id number] 009 [id number] [facility] 2022-08-19 00:00:00 2022-08-19 00:00:00 Telephone Miller Machuca [facility] 1.2.840.114 350.1.13.10 4.2.7.2.686 [id number] 059 [id number] [facility] 2022-08-18 00:00:00 2022-08-18 00:00:00 Telephone Sven [facility] BUILDING 1.2.840.114 350.1.13.10 4.2.7.2.686 [id number] 059 [id number] [facility] 2022-08-17 08:00:00 2022-08-17 08:00:00 Outpatient R [facility] [id number] [facility] 2022-08-12 00:00:00 2022-08-12 00:00:00 Telephone Sven [facility] BUILDING 1.2.840.114 350.1.13.10 4.2.7.2.686 [id number] 059 [id number] [facility] 2022-08-11 00:00:00 2022-08-11 00:00:00 Telephone Sven [facility] BUILDING 1.2.840.114 350.1.13.10 4.2.7.2.686 [id number] 059 [id number] [facility] 2022-08-04 00:00:00 2022-08-04 00:00:00 Edith Machuca [facility] MEDICAL OFFICE BUILDING 1.2.840.114 350.1.13.10 4.2.7.2.686 [id number] 059 [id number] [facility] 2022-08-04 00:00:00 2022-08-04 00:00:00 Telephone Jeff Low [facility] 1.2840.114 350.1.13.10 4.2.7.2.686 [id number] 008 [id number] [facility] 2022-08-04 00:00:00 2022-08-04 00:00:00 Telephone Sven Miller [facility] BUILDING 1.2840.114 350.1.13.10 4.2.7.2.686 [id number] 059 [id number] [facility] 2022-07-13 00:00:00 2022-07-13 00:00:00 Orders Only Doctor Unassigned, [place] [facility] 1.2.840.114 350.1.13.10 4.2.7.2.686 [id number] 009 [id number] [facility] 2022-05-03 18:16:00 2022-05-17 11:40:00 Inpatient 3 Meredith Gunnl E[facility] CVA [id number] 0822 [facility] 2022-05-10 00:00:00 2022-05-10 23:59:00 Outpatient R [facility] [id number] [facility] 2022-05-10 00:00:00 2022-05-10 23:59:00 Hospital Encounter Sven Miller [facility] 1.0.114 350.1.13.10 4.2.7.2.686 [id number] [id number] [facility] 2021-10-04 11:16:00 2021-10-04 17:23:00 Emergency X JOAO LENTZ [facility] ERT [id number] [facility] 2021-10-04 11:16:00 2021-10-04 17:23:00 Emergency Joao Lentz [facility] 1.2840.114 350.1.13.10 4.2.7.2.686 [id number] 084 [id number] [facility] 2021-04-27 00:00:00 2021-04-27 23:59:00 Hospital Encounter [facility] 1.2.840.114 350.1.13.10 4.2.7.2.686 [id number] [id number] [facility] 2021-04-27 00:00:00 2021-04-27 00:00:00 Outpatient [facility] [id number] [facility] 2021-03-23 00:00:00 2021-03-23 23:59:00 Hospital Encounter [facility] 1.2.840.114 350.1.13.10 4.2.7.2.686 [id number] 844 [id number] [facility] 2021-03-23 00:00:00 2021-03-23 00:00:00 Outpatient [facility] [id number] [facility] 2021-02-16 00:00:00 2021-02-16 23:59:00 Hospital Encounter [facility] 1..840.114 350.1.13.10 4.2.7.2.686 [id number] [id number] [facility] 2021-02-16 00:00:00 2021-02-16 00:00:00 Outpatient [facility] [id number] [facility] 2021-01-05 00:00:00 2021-01-05 00:00:00 Outpatient [facility] [id number] [facility] 2020-12-20 09:20:00 2020-12-20 16:52:00 Emergency Farhana Salazar [facility] 1.2.840.114 350.1.13.10 4.2.7.2.686 [id number] 084 [id number] [facility] 2020-12-04 00:00:00 2020-12-04 00:00:00 Outpatient [facility]ILLER MARTIN [facility] [id number] [facility] 2020-11-25 00:00:00 2020-11-25 00:00:00 Orders Only Doctor Unassigned, [place] [facility] 1.2.840.114 350.1.13.10 4.2.7.2.686 [id number] 009 [id number] [facility] 2020-11-19 00:00:00 2020-11-19 00:00:00 Transition of Care Jennifer Johnson 1.2.840.114 350.1.13.10 4.2.7.2.686 [id number] [facility] 2020-11-15 12:38:00 2020-11-18 19:08:00 Inpatient X NAVA GRAY [facility] MANNY [id number] [facility] 2020-11-15 12:38:00 2020-11-18 19:08:00 Hospital Encounter Rahul MichaelNava Amin [facility] 1.2.840.114 350.1.13.10 4.2.7.2.686 [id number] 098 [id number] [facility] Results Test Description Test Time Test Comments Results Result Co mments Source [facility] (NA, K, CL, CO2, Glucose, BUN, Creatinine, CA) - Code [id number] 18:23:37* Test Item Value Reference Range Interpretation Comme nts NA (test code = 1846039955) 136 mmol/L 135-145 K (test code = 2168369067) 4.0 mmol/L 3.5-5.0 CL (test code = 9963378295) 100 mmol/L 98-108 CO2 TOTAL (test code = 9806180258) 33 mmol/L 23-31 H AGAP (test code = 3150143803) 2-16 BUN (test code = 7575110662) 16 mg/dL 7-23 GLUCOSE (test code = 1152250677) 149 mg/dL 70-110 H CREATININE (test code = 8511654810) 0.74 mg/dL 0.50-1.04 CALCIUM (test code = 2075935301) 9.6 mg/dL 8.6-10.6 eGFR (test code = 6796932626) mL/min/1.73m2 RADHA (test code = RADHA) Association [...] imaging tests). Lab Interpretation (test code = 17711-5) Abnormal [facility] - Code [id number] 18:21:16* Test Item Value Reference Range Interpretation Comme nts APTT Patient (test code = 3173-2) See_Comment [Automated message] The system which generated this result transmitted reference range: 23 - 38 Seconds. The reference range was not used to interpret this result as normal/abnormal. RADHA (test code = RADHA) The [facility] patient population mean normal value for aPTT is 30 seconds. Lab Interpretation (test code = 48236-8) Normal [facility] Time / INR - Code [id number] 18:18:56* Test Item Value Reference Range Interpretation Comme nts PROTIME PATIENT (test code = 5964-2) See_Comment [Automated messa ge] The system which generated this result transmitted reference range: 12.0 - 14.7 Seconds. The reference range was not used to interpret this result as normal/abnormal. INR (test code = 6301-6) Normal INR <1.1; Warfarin Therapeutic range 2.0 to 3.0 or 2.5 to 3.5, depending upon the indications. Lab Interpretation (test code = 25799-3) Normal [facility] without Diff - Code [id number] 18:11:39* Test Item Value Reference Range Interpretation [...] result as normal/abnormal. MPV (test code = 69276-0) 9.5 fL 9.5-12.9 RDW-CV (test code = 788-0) 12.0 % 12.0-15.5 RDW-SD (test code = 20146-3) 46.0 fL 39.0-49.9 NRBC x10^3 (test code = 0569295257) <0.01 See_Comment [Automated Ramamia] The system which generated this result transmitted reference range: 10*3/?L. The reference range was not used to interpret this result as normal/abnormal. NRBC/100 WBC (test code = 3268628355) See_Comment [Automated Ramamia] The system which generated this result transmitted reference range: 0.0 - 10.0 /100 WBCs. The reference range was not used to interpret this result as normal/abnormal. IPF % (test code = 7191961754) Lab Interpretation (test code = 33276-1) [facility] [id number] 16:36:09No acute intracranial hemorrhage or mass effect. [...] reviewed this study and agree with theabove report.[facility]/O [id number] 16:36:09No acute intracranial hemorrhage or mass effect. [...] reviewed this study and agree with theabove report.[facility] 3+ VW [id number] 15:24:36Questionable thumb metacarpal soft tissue laceration. Lucency [...] reviewed this study and agree with the abovereport.[facility] [id number] 14:38:47* Test Item Value Reference Range Interpretation Comme nts MAGNESIUM (test code = 5283575078) 1.6 mg/dL 1.7-2.4 L Lab Interpretation (test cod e = 57248-5) [facility]normal [facility] (NA, K, CL, CO2, GLUCOSE, BUN, CREATININE, CA)2020-11-18 14:38:46* Test Item Value Reference Range Interpretation Comme nts NA (test code = 1979236581) 141 mmol/L 135-145 K (test code = 4424575210) 3.5 mmol/L 3.5-5.0 CL (test code = 4106617025) 108 mmol/L 98-108 CO2 TOTAL (test code = 8552136707) 27 mmol/L 23-31 AGAP (test code = 9716653258) 2-16 BUN (test code = 2417926780) 8 mg/dL 7-23 GLUCOSE (test code = 7783548555) 102 mg/dL 70-110 CREATININE (test code = 4253150860) 0.61 mg/dL 0.50-1.04 CALCIUM (test code = 7457810983) 9.5 mg/dL 8.6-10.6 eGFR Calculation (Non-) (test code = 2306633153) mL/min/1.73m2 eGFR Calculation () (test code = 5549584288) mL/min/1.73m2 RADHA (test code = RADHA) Association [...] or urine or abnormalities in imaging tests). [facility] COVID [id number] 03:30:02COVID DMT InterpretationInterpretation/Recommendations: Molecular NAAT Tests for [...] COVID-19 testing the patient has had at [facility], including molecular NAAT testing (more commonly known as PCR testing and Rapid ID Now testing) and antibody testing. It does not take into account any testing that a patient has had outside of the [facility] medical record. [facility] LABORATORY SERVICESCOVID TfsovggPMHP-IcA-1 Rapid ID NOW (no units) ? ? Date ? Value ? 11/15/2020 ? Not Detected ? [facility] SERVICESH[facility] HospitalCREATINE [id number] 17:17:51* Test Item Value Reference Range Interpretation Comme nts CK (test code = 5252844035) 353 U/L 33-194 H Lab Interpretation (test cod e = 00358-1) Abnormal [facility] Metabolic Panel (Na, K, Cl, CO2, Glucose, BUN, Creatinine, Ca)2020-11-17 12:03:55* Test Item Value Reference Range Interpretation Comme nts NA (test code = 5485781234) 136 mmol/L 135-145 K (test code = 5813221511) 3.2 mmol/L 3.5-5.0 L CL (test code = 8400135008) 107 mmol/L 98-108 CO2 TOTAL (test code = 4379624744) 24 mmol/L 23-31 AGAP (test code = 5834527538) 2-16 BUN (test code = 8335460000) 11 mg/dL 7-23 GLUCOSE (test code = 4738927137) 92 mg/dL 70-110 CREATININE (test code = 3718025627) 0.61 mg/dL 0.50-1.04 CALCIUM (test code = 5252426352) 9.0 mg/dL 8.6-10.6 eGFR Calculation (Non-) (test code = 7127859038) mL/min/1.73m2 eGFR Calculation () (test code = 5983639633) mL/min/1.73m2 RADHA (test code = RADHA) Association [...] imaging tests). Lab Interpretation (test code = 33745-7) [facility] [id number] 07:40:49Impression: No radiographic evidence for acute cardiopulmonary disease. RL: 460 AFC: [id number] Ordering physician: TULIO NORIEGA Indication: Stroke protocol, [...] radiographic evidence for acute cardiopulmonary disease.RL: 460AFC: [id number] signed by Carie Butler MD, PhD at 11/17/2020 1:40 AM [facility] [id number] 01:59:17There is no significant plaque in the common carotid carotidbifurcation or proximal ICA and no hemodynamically significant stenosis.2. No hemodynamically significant stenosis of the intracranial vessels.3. Codominant vertebral arteries. RL: 6200AFC: [id number] END OF REPORT Ordering Physician: NAVA GRAY [...] the intracranial vessels.3. Codominant vertebral arteries.RL: 6200AF: [id number] OF REPORT [facility] [id number] 01:59:17There is no significant plaque in the common carotid carotidbifurcation or proximal ICA and no hemodynamically significant stenosis.2. No hemodynamically significant stenosis of the intracranial vesse ls.3. Codominant vertebral arteries. RL: 6200AF: 32112 END OF REPORT Ordering Physician: NAVA GRAY [...] the anterior middle and posterior cerebral arteries. [facility], Radiant Results Inft User - 11/16/2020 8:00 [...] the intracranial vessels.3. Codominant vertebral arteries.RL: 6200AF: [id number] OF REPORT [facility] STROKE BRAIN WO [id number] 18:10:26Impression: No acute intracranial abnormality. Preliminary Report Dictated by Resident: Hugo Mclean reviewed this study and agree with the above reportwith the following additions: Findings suggestive of small focus of left subacute ischemia in the leftsuperior frontal subcortical white matter. Hugo Mei MD., have reviewed this study [...] reviewed this study and agree with theabove report.[facility]CREATINE [id number] 13:04:17* Test Item Value Reference Range Interpretation Comme nts CK (test code = 2852467787) 1043 U/L 33-194 H Slight hemolysis Lab Interpretation (test code = 16834-9) Abnormal [facility] LIPID PANEL (66583)(TOTAL CHOLESTEROL, TRIGLYCERIDES, HDL)2020-11-16 10:26:22* Test Item Value Reference Range Interpretation Comme nts CHOL (test code = 7441830887) 116 mg/dL 120-200 L HDL (test code = 6318853481) 45 mg/dL >50 L HDLC RATIO (test code = 1947189228) See_Comment [Automated Ramamia] The system which generated this result transmitted reference range: <=4.5. The reference range was not used to interpret this result as normal/abnormal. TRIG (test code = 8996788965) 56 mg/dL 30-170 LDL CHOL (test code = 49658-6) 60 mg/dL See_Comment [Automated [employer]] The system which generated this result transmitted reference range: <=160. The reference range was not used to interpret this result as normal/abnormal. VLDL (test code = 4962308893) 11 mg/dL 5-60 Lab Interpretation (test code = 05960-6) Abnormal [facility] Metabolic Panel (Na, K, Cl, CO2, Glucose, BUN, Creatinine, Ca)2020-11-16 10:24:01* Test Item Value Reference Range Interpretation Comme nts NA (test code = 1842028898) 140 mmol/L 135-145 K (test code = 5641426185) 3.5 mmol/L 3.5-5.0 CL (test code = 7848306412) 107 mmol/L 98-108 CO2 TOTAL (test code = 3801006216) 30 mmol/L 23-31 AGAP (test code = 1858858575) 2-16 BUN (test code = 8924833635) 9 mg/dL 7-23 GLUCOSE (test code = 6882979741) 79 mg/dL 70-110 CREATININE (test code = 8803068815) 0.67 mg/dL 0.50-1.04 CALCIUM (test code = 2701739617) 9.4 mg/dL 8.6-10.6 eGFR Calculation (Non-) (test code = 3897407261) mL/min/1.73m2 eGFR Calculation () (test code = 3382768670) mL/min/1.73m2 RADHA (test code = RADHA) Association [...] or urine or abnormalities in imaging tests). [facility] HospitalGLYCOSYLATED HEMOGLOBIN (A1C)2020-11-16 06:39:23* Test Item Value Reference Range Interpretation Comme [facility] HGB A1C (test code = 4548-4) 5.6 % 4.0-6.0 Lab Interpretation (test cod e = 90259-7) Normal [facility] HospitalTROPONIN [id number] 06:28:31* Test Item Value Reference Range Interpretation Comme [facility] TROPONIN I (test code = 1759025458) 0.008 ng/mL See_Comment [Automated message] The system [...] biotin. ? Lab Interpretation (test code = 01259-1) Normal [facility] HospitalVERIFYNOW PRUTEST (P2Y12)2020-11-16 06:00:04* Test Item Value Reference Range Interpretation Comme [facility] VerifyNow PRUTest (P2Y12) (test code = 8627850671) See_Comment [Automated message] The system which generated [...] the clinician. Lab Interpretation (test code = 88607-6) Normal [facility] HospitalUrinalysis2021-03-06 22:56:00* Test Item Value Reference Range Interpretation Comme nts APPEARANCE (test code = 9709583187) Clear Clear COLOR (test code = 4046579901) Yellow Yellow PH (test code = 1307834063) 4.8-8.0 SP GRAVITY (test code = 5486986992) 1.003-1.030 GLU U QUAL (test code = 4446094706) Negative Negative BLOOD (test code = 2413556178) Negative Negative KETONES (test code = 3645610107) 15 mg/dL Negative A PROTEIN (test code = 2887-8) Negative Negative UROBILIN (test code = 9076098003) 0.2 mg/dL See_Comment [Automated [employer]] The system which generated this result transmitted reference range: 0-1.0 mg/dL. The reference range was not used to interpret this result as normal/abnormal. BILIRUBIN (test code = 5729163559) Negative Negative NITRITE (test code = 6361436015) Negative Negative LEUK VENECIA (test code = 3690097546) Negative Negative RBC/HPF (test code = 1989132742) See_Comment H [Automated messa ge] The system which generated this result transmitted reference range: 0 - 3 HPF. The reference range was not used to interpret this result as normal/abnormal. WBC/HPF (test code = 0630453149) See_Comment H [Automated messa ge] The system which generated this result transmitted reference range: 0 - 5 HPF. The reference range was not used to interpret this result as normal/abnormal. BACTERIA (test code = 0641098596) Few Negative A MUCOUS (test code = 6383071025) Slight Negative LPF A SQ EPITH (test code = 6144469909) HPF Lab Interpretation (test code = 46122-2) Abnormal [facility] HospitalFREE [id number] 20:33:00* Test Item Value Reference Range Interpretation Comme nts FREE T4 (test code = 6134420040) See_Comment [Automated messa ge] The system which generated this result transmitted reference range: 0.78 - 2.20 ng/dL:. The reference range was not used to interpret this result as normal/abnormal. Lab Interpretation (test code = 94666-8) Normal [facility]CT HEAD WO [id number] 20:18:45Right cerebellar transcortical hypoattenuation could reflect subacute/acutecerebellar infarct. Further evaluation with MRI without contrast isrecommended. No other acute intracranial abnormality identified. Preliminary Report Dictated by Resident: Hugo Suárez reviewed this studyand agree with the above reportwith the following additions: The right cerebellar hypoattenuation could be artifact. Agree that MRI withdiffusion weighted imaging would help differentiate between infarct andartifact. Clinically correlate. Hugo Mei ?MD. Brigitte, have reviewed this study and agree with [...] reviewed this study and agree with theabove report.[facility] HospitalTHYROID STIMULATING [id number] 20:17:00* Test Item Value Reference Range Interpretation Comme nts TSH (test code = 4549801463) See_Comment [Automated [employer]] The system which generated this result transmitted reference range: 0.45 - 4.70 mIU/L. The reference range was not used to interpret this result as normal/abnormal. Lab Interpretation (test code = 87756-8) Normal [facility] HospitalTroponin [id number] 19:59:00* Test Item Value Reference Range Interpretation Comme nts TROPONIN I (test code = 8429357259) 0.008 ng/mL See_Comment [Automated message] The system [...] biotin. ? Lab Interpretation (test code = 94572-4) Normal [facility] HospitalN-TERMINAL [id number] 19:56:00* Test Item Value Reference Range Interpretation Comme nts NT-proBNP (test code = 0189360111) 1010 pg/mL See_Comment H [Automated message] The system which generated this result transmitted reference range: <=450. The reference range was not used to interpret this result as normal/abnormal. RADHA (test code = RADHA) Biotin has been reported to cause a negative bias, interpret results relative to patient's use of biotin. Lab Interpretation (test code = 29190-7) Abnormal [facility] HospitalBasi Metabolic Panel (NA, K, CL, CO2, GLUCOSE, BUN, CREATININE, CA)2020-11-15 19:44:00* Test Item Value Reference Range Interpretation Comme nts NA (test code = 1513366007) 137 mmol/L 135-145 K (test code = 3037699075) 3.6 mmol/L 3.5-5.0 CL (test code = 3496475648) 100 mmol/L 98-108 CO2 TOTAL (test code = 5603741523) 30 mmol/L 23-31 AGAP (test code = 4476339704) 2-16 BUN (test code = 6451837928) 11 mg/dL 7-23 GLUCOSE (test code = 9038551002) 95 mg/dL 70-110 CREATININE (test code = 1688971489) 0.64 mg/dL 0.50-1.04 CALCIUM (test code = 2566092424) 9.7 mg/dL 8.6-10.6 eGFR Calculation (Non-) (test code = 7334127381) mL/min/1.73m2 eGFR Calculation () (test code = 8105139474) mL/min/1.73m2 RADHA (test code = RADHA) Association [...] or urine or abnormalities in imaging tests). [facility] HospitalHepatic Function Panel (ALB, T.PRO, BILI T, BU/BC, ALT, AST, ALK PHOS)2020-11-15 19:44:00* Test Item Value Reference Range Interpretation Comme nts TOTAL BILI (test code = 4238431958) 1.1 mg/dL 0.1-1.1 BILI UNCON (test code = 0458933248) 1.1 mg/dL 0.1-1.1 BILI CONJ (test code = 6121137721) 0.0 mg/dL 0.0-0.3 T PROTEIN (test code = 7151970694) 6.8 g/dL 6.3-8.2 ALBUMIN (test code = 8903279045) 4.1 g/dL 3.5-5.0 ALK PHOS (test code = 7129318984) 101 U/L 34-122 ALTv (test code = 1742-6) 18 U/L 5-35 AST(SGOT) (test code = 3244721842) 31 U/L 13-40 Lab Interpretation (test cod e = 64915-6) Normal [facility] HospitalMAGNESIUM2021-03-06 19:44:00* Test Item Value Reference Range Interpretation Comme nts MAGNESIUM (test code = 6344734904) 1.6 mg/dL 1.7-2.4 L Lab Interpretation (test cod e = 98420-5) Abnormal [facility] HospitalCREATINE [id number] 19:44:00* Test Item Value Reference Range Interpretation Comme nts CK (test code = 8801638234) 408 U/L 33-194 H Lab Interpretation (test cod e = 23615-1) Abnormal [facility] HospitalaPTT2021-03-06 19:40:00* Test Item Value Reference Range Interpretation Comme nts APTT Patient (test code = 3173-2) See_Comment [Automated message] The system which generated this result transmitted reference range: 23 - 38 Seconds. The reference range was not used to interpret this result as normal/abnormal. RADHA (test code = RADHA) The [facility] patient population mean normal value for aPTT is 30 seconds. Lab Interpretation (test code = 84177-0) Normal [facility] HospitalCOVID-19 (ID NOW RAPID TESTING)2020-11-15 19:40:00* Test Item Value Reference Range Interpretation Comme nts SARS-CoV-2 Rapid ID NOW (test code = 97957-3) Not Detected Not Detected RADHA (test code = RADHA) ID NOW COVID-19 As say is an isothermal nucleic acid amplification test intended for the qualitative detection of nucleic acid from SARS-CoV-2 viral RNA in nasopharyngeal (DATA CONTROL CLERK) specimens. It is used under Emergency Use [...] clinically indicated. Lab Interpretation (test code = 65586-8) Normal [facility] HospitalProthrombin Time (PT) / [id number] 19:38:00 * Test Item Value Reference Range Interpretation Comme nts PROTIME PATIENT (test code = 5964-2) See_Comment [Automated [employer]] The system which generated this result transmitted reference range: 12.0 - 14.7 Seconds. The reference range was not used to interpret this result as normal/abnormal. INR (test code = 6301-6) Normal INR <1.1; Warfarin Therapeutic range 2.0 to 3.0 or 2.5 to 3.5, depending upon the indications. Lab Interpretation (test code = 02205-0) Normal [facility] HospitalCBC with [id number] 19:23:00* Test Item Value Reference Range Interpretation Comme nts WBC (test code = 6690-2) See_Comment [Automated [employer]] The system which generated this result transmitted reference range: 4.30 - 11.10 10*3/?L. The reference range was not used to interpret this result as normal/abnormal. RBC (test code = 789-8) See_Comment L [Automated [employer]] The system which generated this result transmitted [...] 32.0 g/dL 31.6-35.1 RDW-SD (test code = 41100-6) 44.2 fL 39.0-49.9 RDW-CV (test code = 788-0) 11.7 % 12.0-15.5 L PLT (test code = 777-3) See_Comment [Automated [employer] ge] The system which generated this result transmitted reference range: 166 - 358 10*3/?L. The reference range was not used to interpret this result as normal/abnormal. MPV (test code = 96995-6) 9.4 fL 9.5-12.9 L NRBC/100 WBC (test code = 5949922300) See_Comment [Automated [employer]] The system which generated this result transmitted reference range: 0.0 - 10.0 /100 WBCs. The reference range was not used to interpret this result as normal/abnormal. NRBC x10^3 (test code = 9972418364) <0.01 See_Comment [Automated [employer]] The system which generated this result transmitted reference range: 10*3/?L. The reference range was not used to interpret this result as normal/abnormal. GRAN MAT (NEUT) % (test code = 770-8) 81.5 % IMM GRAN % (test code = 1642152333) 0.20 % LYMPH % (test code = 736-9) 8.6 % MONO % (test code = 5905-5) 8.6 % EOS % (test code = 713-8) 0.2 % BASO % (test code = 706-2) 0.9 % GRAN MAT x10^3(ANC) (test code = 8346950929) 3.59 10*3/uL 1.88-7.09 IMM GRAN x10^3 (test code = 0608768862) <0.03 0.00-0.06 LYMPH x10^3 (test code = 731-0) 0.38 10*3/uL 1.32-3.29 L MONO x10^3 (test code = 742-7) 0.38 10*3/uL 0.33-0.92 EOS x10^3 (test code = 711-2) <0.03 0.03-0.39 L BASO x10^3 (test code = 704-7) 0.04 10*3/uL 0.01-0.07 Lab Interpretation (test code = 88800-8) Abnormal [facility]"
--- NOTE | 2024-08-26 13:20 | RAD REPORT ---
EXAM: CT brain without contrast HISTORY: Headache COMPARISON: None TECHNIQUE: Multiple contiguous axial images were obtained and a CT of the brain without contrast.. Sagittal and coronal reconstruction performed. Automated exposure control, adjustment of the mA and/or kV according to patient size, and/or iterative reconstruction. Unless otherwise specified, incidental f indings do not require dedicated imaging follow-up FINDINGS: An intracranial bleed is not seen Ventricles are normal caliber No extra-axial fluid collection noted Mild to moderate low-density paraventricular, deep and some cortical white matter Atrophy of the cerebellar vermis is present. No fluid within the visualized sinuses or mastoids noted. IMPRESSION: No acute intracranial abnormality noted. If the patient continues to have symptoms to suggest an acute intracranial abnormality then MRI of th e brain would be recommended.
--- NOTE | 2024-08-26 14:03 | ER ---
Nurse's Notes [facility] Name: Ruba Cuadra Age: 79 yrs Sex: Female : 1945 Arrival Date: 08/26/2024 Time: 11:45 Bed 18 Private MD: Diagnosis: Fall from non-moving wheelchair;Unspecified injury of head, initial encounter Presentation: 08/26 11:50 Chief complaint: EMS states: FALL FROM [place] STATES WENT TO SIT IN WHEELCHAIR AND IT db WAS UNLOCKED AND ROLLED AWAY. STATES HIT BACK OF HEAD ON FLOOR AND HIT RIGHT LOWER BACK. DENIES LOC. STATES IS ON WARFARIN. Coronavirus screen: Client denies travel out of the [place] in the last 14 days. At this time, the client does not indicate any symptoms associated with coronavirus-19. Ebola Screen: Patient negative for fever greater than or equal to 101.5 degrees Fahrenheit, and additional compatible Ebola Virus Disease symptoms Patient denies exposure to infectious person. Patient denies travel to an Ebola-affected area in the 21 days before illness onset. No symptoms or risks identified at this time. Initial Sepsis Screen: Does the patient meet any 2 criteria? No. Patient's initial sepsis screen is negative. Does the patient have a suspected source of infection? No. Patient's initial sepsis screen is negative. Risk Assessment: Do you want to hurt yourself or someone else? Patient reports no desire to harm self or others. Onset of symptoms was August 26, 2024. 11:50 Method Of Arrival: Ambulatory db 11:50 Acuity: KIA 3 db Triage Assessment: 11:50 General: Appears in no apparent distress. comfortable, Behavior is calm, cooperative. db Pain: Complains of pain in scalp and right low back. Neuro: Level of Consciousness is awake, alert, obeys commands, Oriented to person, place, time, situation. Historical: - Allergies: 12:03 No Known Allergies; db - Immunization history:: Adult Immunizations. - Infectious Disease History:: Denies. - Social history:: Smoking status: Patient denies any tobacco usage or history of. Screenin:47 [facility] ED Fall Risk Assessment (Adult) History of falling in the last 3 months, db including since admission Yes- single mechanical fall (1 pt) Confusion or Disorientation No (0 pts) Intoxicated or Sedated No (0 pts) Impaired Gait Yes (1 pt) Mobility Assist Device Used Yes (1 pt) Altered Elimination No (0 pt) Score/Fall Risk Level 3 or more points = High Risk Oriented to surroundings, Maintained a safe environment. Abuse screen: Denies threats or abuse. Denies injuries from another. Nutritional screening: No deficits noted. Tuberculosis screening: No symptoms or risk factors identified. Assessment: 12:05 Reassessment: Patient appears in no apparent distress at this time. Patient and/or db family updated on plan of care and expected duration. Pain level reassessed. Patient is alert, oriented x 3, equal unlabored respirations, skin warm/dry/pink. SEE TRIAGE FOR INITIAL ASSESSMENT. 13:00 Reassessment: Patient appears in no apparent distress at this time. Patient and/or db family updated on plan of care and expected duration. Pain level reassessed. Patient is alert, oriented x 3, equal unlabored respirations, skin warm/dry/pink. 14:06 Reassessment: PATIENT ASSISTED TO BEDPAN AND CLEANED. db 14:43 Reassessment: [facility] WILL SET UP db TRANSPORT AND CALL BACK AND GIVE ETA. General: Appears in no apparent distress. comfortable, Behavior is calm, cooperative. Neuro: Level of Consciousness is awake, alert, obeys commands, Oriented to person, place, time, situation. 15:25 Reassessment: EMS ARRIVED FOR PATIENT TRANSPORT TO FACILITY. db Vital Signs: 11:50 BP 127 / 63; Pulse 78; Resp 16; Temp 97.5; Pulse Ox 98% on R/A; Weight 66.68 kg; Height db 5 ft. 4 in. ; Pain 3/10; 12:45 BP 120 / 54; Pulse 74; Resp 16; Pulse Ox 98% ; db 14:00 BP 121 / 58; Pulse 67; Resp 16; Pulse Ox 100% on R/A; db 14:30 BP 116 / 58; Pulse 73; Resp 16; Pulse Ox 100% on R/A; db 15:00 BP 120 / 56; Pulse 72; Resp 16; Pulse Ox 100% on R/A; db 11:50 Body Mass Index 25.23 (66.68 kg, 162.56 cm) db 11:50 Pain Scale: Adult db Enedelia Coma Score: 13:57 Eye Response: spontaneous(4). Motor Response: obeys commands(6). Verbal Response: bo1 oriented(5). Total: 15. ED Course: 11:50 Arm band placed on Patient placed in an exam room. db 11:56 Patient arrived in ED. eb 12:00 Rhiannon Cesar, RN is Primary Nurse. db 12:03 Triage completed. db 12:55 Bg Riggins MD is Attending Physician. eb 13:14 CT Head Brain wo Cont In Process Unspecified. EDMS 13:18 Patient moved back from CT. db 14:47 Patient has correct armband on for positive identification. Bed in low position. Call db light in reach. Side rails up X 1. Provided Education on: DISCHARGE AND FOLLOWUP. Pulse ox on. NIBP on. Warm blanket given. Pillow given. 14:47 No provider procedures requiring assistance completed. Patient did not have IV access db during this emergency room visit. Administered Medications: No medications were administered Medication: 14:48 VIS not applicable for this client. db Outcome: 14:02 Discharge ordered by . bo1 14:[address] [facility] 14:47 Condition: stable 14:47 Discharge instructions given to patient, family, Instructed on discharge instructions, follow up and referral plans. 15:30 Patient left the ED. db Signatures: Dispatcher [employer] [facility] Gertrudis Dos Santos Danielle, RN RN db Bg Riggins MD MD bo1
--- NOTE | 2024-08-26 14:03 | EDPHYS ---
Physician Documentation [facility] Name: Ruba Cuadra Age: 79 yrs Sex: Female : 1945 Arrival Date: 08/26/2024 Time: 11:45 Bed 18 Private MD: ED Physician Bg Riggins HPI: 08/26 13:52 This 79 yrs old Female presents to ER via Ambulatory with complaints of Fall and hit bo1 head. 13:52 Fell from a unlocked wheelchair [employer]. Onset: The symptoms/episode began/occurred bo1 acutely. Severity of symptoms: At their worst the symptoms were mild in the emergency department the symptoms No AMS or LOC, spouse be her side, no acute changes. No LOC; here due to being on Warfarin. Historical: - Allergies: 12:03 No Known Allergies; db - Immunization history:: Adult Immunizations. - Infectious Disease History:: Denies. - Social history:: Smoking status: Patient denies any tobacco usage or history of. ROS: 13:53 Constitutional: Negative for fever, chills, and weight loss bo1 13:53 Eyes: Negative for visual disturbance, 13:53 Neck: Negative for pain with movement, pain at rest, 13:53 Cardiovascular: Negative for chest pain, 13:53 Respiratory: Negative for shortness of breath, 13:53 MS/extremity: Positive for swelling, intermediate frame tender swollen LE (L>R), 13:53 Skin: Negative for rash, 13:53 Neuro: Negative for altered mental status, headache, 13:53 All other systems are negative, Exam: 13:57 Constitutional: This is a well developed, well nourished patient who is awake, alert, bo1 and in no acute distress. 13:57 Constitutional: The patient appears alert, awake, comfortable, 13:57 Head/face: Exam is negative for acute changes, abrasion(s), silva signs, swelling, 13:57 Eyes: Normal reaction and sight. 13:57 Neck: External neck: is normal, no acute changes, 13:57 Chest/axilla: Inspection: normal, no acute changes, 13:57 Cardiovascular: Rate: normal, Rhythm: regular, Pulses: no pulse deficits are appreciated, 13:57 Respiratory: the patient does not display signs of respiratory distress, Respirations: normal, no acute changes, Breath sounds: are clear throughout, 13:57 Musculoskeletal/extremity: Extremities: grossly normal except: BLE with mild edema, non - pitting (dependent), 13:57 Neuro: Orientation: is normal, appropriate for stated age, no acute changes, Mentation: is normal, appropriate for stated age, no acute changes, Memory: is normal, appropriate for stated age, no acute changes, Per spouse, no AMS, Vital Signs: 11:50 BP 127 / 63; Pulse 78; Resp 16; Temp 97.5; Pulse Ox 98% on R/A; Weight 66.68 kg; Height db 5 ft. 4 in. ; Pain 3/10; 12:45 BP 120 / 54; Pulse 74; Resp 16; Pulse Ox 98% ; db 14:00 BP 121 / 58; Pulse 67; Resp 16; Pulse Ox 100% on R/A; db 14:30 BP 116 / 58; Pulse 73; Resp 16; Pulse Ox 100% on R/A; db 15:00 BP 120 / 56; Pulse 72; Resp 16; Pulse Ox 100% on R/A; db 11:50 Body Mass Index 25.23 (66.68 kg, 162.56 cm) db 11:50 Pain Scale: Adult db Enedelia Coma Score: 13:57 Eye Response: spontaneous(4). Motor Response: obeys commands(6). Verbal Response: bo1 oriented(5). Total: 15. MDM: 13:06 Medical Screening Exam initiated bo1 13:59 Differential Diagnosis altered mental status, Fall, closed head injury on blood bo1 thinners. Data reviewed: vital signs, radiologic studies, CT scan. 14:00 Special discussion: Repeat CT of head when symptoms develop or any unusual sequelae is bo1 noted by family. ED course: No indication for acute hospitalization or obs. 08/26 12:51 Order name: CT Head Brain wo Cont; Complete Time: 13:26 iw Administered Medications: No medications were administered Disposition Summary: 08/26/24 14:02 Discharge Ordered Notes: Location: Home bo1 Problem: new bo1 Symptoms: have improved bo1 Condition: Stable bo1 Diagnosis - Fall from non-moving wheelchair bo1 - Unspecified injury of head, initial encounter bo1 Followup: bo1 - With: Private Physician - When: Upon discharge from the Emergency Department - Reason: Recheck today's complaints, Continuance of care Discharge Instructions: - Discharge Summary Sheet bo1 - Head Injury, Adult bo1 Forms: - Medication Reconciliation Form bo1 - Antibiotic Education bo1 - Prescription Opioid Use bo1 - Patient Portal Instructions bo1 - Leadership Thank You Letter bo1 Signatures: Dispatcher [employer] Rhiannon Beach, RN RN Bg Hayden MD MD bo1
[2024-08-26 15:35] VITALS: TEMP 97.5
[2024-08-26 15:39] VITALS: O2SAT 100
[2024-08-26 15:42] VITALS: BP 120/56
== END 2024-08-26 15:30 | disposition home or self-care (01) ==
LOC: ER 11:45
DX: S09.90XA Unspecified injury of head, initial encounter (principal); W05.0XXA Fall from non-moving wheelchair, initial encounter
CPT/HCPCS: 70450; 99284